=== PATIENT | male | born 1955 | race Caucasian/White ===

== ENCOUNTER → 2019-04-25 10:35 | Outpatient (BNVA) | payer MEDICARE, MEDICAID, SELFPAY | PROVIDERS: Family Provider Family Medicine; Visit Provider Nurse Practitioner | DX: F70 Mild intellectual disabilities (principal); F20.89 Other schizophrenia | CPT/HCPCS: 99213 ==

== ENCOUNTER 2019-07-13 07:43 | Inpatient (IN) | payer MEDICARE, MEDICAID, SELFPAY ==
[2019-07-13] VITALS (110 sets, daily range): BP systolic 63–148; BP diastolic 38–92; PULSE 48–86; RESP 12–25; TEMP 36.7–37.4; O2SAT 93–100; BMI 28.1
--- NOTE | 2019-07-13 07:50 | W.ED.AMS ---
HPI - Altered Mental Status General: Chief Complaint: Altered Mental Status Stated Complaint: AMS Time Seen by Provider: 07/13/19 07:50 History of Present Illness: HPI narrative: 64-year-old male who has a history of schizophrenia and mental retardation he lives in assisted living home he arrives here today via EMS with altered mental status. EMS reports they were told he had a cough over the last week but no report of a fever he is afebrile now. He is nonverbal at this time and unable to give any history assistance. His past medical history and medicine list from the assisted living home was reviewed. complaint: altered mental status Onset (ago): hour(s) Timing confirmed by: caregiver Severity: severe Consistency of symptoms: Getting Worse Context: other (History of schizophrenia and mental retardation) Treatments prior to arrival: oxygen Review of Systems General: Reports: ROS unobtainable due to mental status [facility] ED PFSH: Medical History (Updated 07/13/19 @ 13:06 by Nam Morales MD) Anxiety and depression Hyperlipidemia Hypertension Hypothyroidism Mild intellectual disabilities Other schizophrenia Surgical History (Updated 07/13/19 @ 13:06 by Nam Morales MD) History of craniotomy Social History Smoking and tobacco status: unknown if ever smoked Physical Exam HENMT: COMMON NORMALS: external ears normal, EAC's normal and oropharynx normal EXTERNAL EAR: Yes external ears normal EXTERNAL AUDITORY CANAL: EAC's normal Eye: COMMON NORMALS: no scleral icterus Neck/C-Spine: COMMON NORMALS: full ROM, no lymphadenopathy, supple and no JVD Lymph: LYMPHATIC: no lymphadenopathy noted and no lymphedema noted Resp: EFFORT & INSPECTION: Yes respiratory distress, Yes decreased respiratory effort, Yes labored, Yes uses accessory muscles and Yes audible wheezes Cardio: COMMON NORMALS: no JVD, regular rhythm and No murmurs present (Cardio) RATE: bradycardic RHYTHM: regular rhythm GI: COMMON NORMALS: Soft to palpation and No hepatosplenomegaly present AUSCULTATION: Yes normoactive bowel sounds PALPATION: Yes Soft to palpation, No Tenderness to palpation present (GI), No Guarding due to palpation present (GI) and Yes No hepatosplenomegaly present Extremity: COMMON NORMALS: normal to inspection, capillary refill normal, no clubbing, cyanosis or edema, no calf tenderness and no pedal edema Skin: COMMON NORMALS: no rashes or lesions noted GENERAL SKIN EXAM: no rashes or lesions noted Procedures Intubation Time out performed: Yes sedative: Etomidate Mg Given: 40 paralytic: Succinylcholine Mg Given: 120 Laryngoscope: Yola Assist Device Used: fiber optic device ET Tube Size: 8.5 Tube Secured Depth (cm): 22 Tube Secured Location: teeth Tube Placement Confirmation: visualized tube passing through cords, equal breath sounds bilaterally and no breath sounds over epigastrium Patient Tolerated Procedure: well Intubation Complications: none Additional Comments: Initial attempt made with the bougie patient had excessive soft tissue and the bougie was deflected and could not actually get it into position when I went with just a ET cuff with stylette intubated without difficulty on the first attempt Course Vital Signs: Vital signs: Vital Signs Temperature 98.3 F 07/16/19 04:00 Pulse Rate 100 07/16/19 08:00 Respiratory Rate 16 07/16/19 08:54 Blood Pressure 95/59 07/16/19 08:00 Pulse Oximetry 95 07/16/19 08:00 MDM - Altered Mental Status Lab Data: Labs: Lab Results 07/13/19 07/13/19 07/13/19 Range/Units 08:02 08:02 08:02 WBC 34.5 H* (4.0-10.0) 10^3/ uL RBC 4.84 (4.1-5.3) 10^6/u L Hgb 13.7 (11.7-16.6) g/dL Hct 45.2 (42.0-52.0) % MCV 93.4 (80-94) fL MCH 28.3 (28.0-34.0) pg MCHC 30.3 (30.0-36.0) g/dL RDW 12.6 (12.1-15.1) % Plt Count 207 (130-400) 10^3/c mm MPV 11.0 H (7.4-10.4) fL Neut % (Auto) 93.9 % Lymph % (Auto) 3.1 % Dade % (Auto) 2.2 % Eos % (Auto) 0.0 % Baso % (Auto) 0.3 % Neut # (Auto) 32.4 H (1.8-7.7) 10^3/u L Lymph # (Auto) 1.1 (0.8-4.8) 10^3/u L Dade # (Auto) 0.8 (0.2-0.9) 10^3/u L Eos # (Auto) 0.0 (0.0-0.8) 10^3/u L Baso # (Auto) 0.1 (0.0-0.1) 10^3/u L Nucleated RBC % (a uto) 0 % Nucleated RBCs # 0.0 /100WBC PT (10.5-13.3) SECO NDS INR (0.8-1.2) Specimen Type Sample Site ABG pH (7.35-7.45) ABG pCO2 (35-45) mmHg ABG pO2 (80.0-100.0) mmH g ABG HCO3 (22-26) mmol/L ABG O2 Saturation ABG Base Excess (-2.0-2.0) mmol/ L Adolfo Test A-a O2 Gradient (5-10) mmHg Hematocrit (42-52) % Hgb O2 Saturation (95-100) % Carboxyhemoglobin (0.4-20.1) %THgb Methemoglobin (0.4-1.5) % Total Hemoglobin (14-18) g/dL Ionized Calcium (1.1-1.4) mmol/L O2 Delivery Device FiO2 % Asbestos Shingle Inspector ID Sodium 138 (136-145) mmol/L Potassium 5.1 (3.5-5.1) mmol/L Chloride 101 (98-107) mmol/L Carbon Dioxide 20 L (22-29) mmol/L Anion Gap 22.1 H (5-19) BUN 50 H (8-23) mg/dL Creatinine 2.9 H (0.7-1.2) mg/dL GFR Calculation 22.0 L (90-130) mL/min Glucose 127 H (65-115) mg/dL Estimat Average Gl ucose Hemoglobin A1c (4.0-6.0) % Calculated Osmolal ity 286 (285-295) mOsm/k g Lactate 1.9 (0.5-2.2) mmol/L Calcium 11.1 H (8.5-10.5) mg/dL Phosphorus (2.5-4.5) mg/dL Magnesium (1.7-2.3) mg/dL Total Bilirubin 0.4 (0.15-1.2) mg/dL AST 16 (0-40) U/L ALT 11 (0-41) U/L Alkaline Phosphata se 146 H (40-130) IU/L Creatine Kinase 138 (39-308) U/L Troponin T Baselin e (0-15) ng/mL NT-Pro-B Natriuret Pep (0-125) pg/mL Total Protein 7.7 (6.6-8.7) g/dL Albumin 4.2 (3.5-5.2) g/dL Globulin 3.5 (1.3-4.6) g/dL Lipase 29 (13-60) U/L Procalcitonin (0-0.5) ng/mL TSH (0.27-4.20) uIU/ mL Nasal/Oral COVID-1 9 PCR Influenza Type A A g (Negative) Influenza Type B A g (Negative) 07/13/19 07/13/19 07/13/19 Range/Units 08:02 08:02 08:02 WBC (4.0-10.0) 10^3/ uL RBC (4.1-5.3) 10^6/u L Hgb (11.7-16.6) g/dL Hct (42.0-52.0) % MCV (80-94) fL MCH (28.0-34.0) pg MCHC (30.0-36.0) g/dL RDW (12.1-15.1) % Plt Count (130-400) 10^3/c mm MPV (7.4-10.4) fL Neut % (Auto) % Lymph % (Auto) % Dade % (Auto) % Eos % (Auto) % Baso % (Auto) % Neut # (Auto) (1.8-7.7) 10^3/u L Lymph # (Auto) (0.8-4.8) 10^3/u L Dade # (Auto) (0.2-0.9) 10^3/u L Eos # (Auto) (0.0-0.8) 10^3/u L Baso # (Auto) (0.0-0.1) 10^3/u L Nucleated RBC % (a uto) % Nucleated RBCs # /100WBC PT 16.90 H (10.5-13.3) SECO NDS INR 1.33 H (0.8-1.2) Specimen Type Sample Site ABG pH (7.35-7.45) ABG pCO2 (35-45) mmHg ABG pO2 (80.0-100.0) mmH g ABG HCO3 (22-26) mmol/L ABG O2 Saturation ABG Base Excess (-2.0-2.0) mmol/ L Adolfo Test A-a O2 Gradient (5-10) mmHg Hematocrit (42-52) % Hgb O2 Saturation (95-100) % Carboxyhemoglobin (0.4-20.1) %THgb Methemoglobin (0.4-1.5) % Total Hemoglobin (14-18) g/dL Ionized Calcium (1.1-1.4) mmol/L O2 Delivery Device FiO2 % Asbestos Shingle Inspector ID Sodium (136-145) mmol/L Potassium (3.5-5.1) mmol/L Chloride (98-107) mmol/L Carbon Dioxide (22-29) mmol/L Anion Gap (5-19) BUN (8-23) mg/dL Creatinine (0.7-1.2) mg/dL GFR Calculation (90-130) mL/min Glucose (65-115) mg/dL Estimat Average Gl ucose Hemoglobin A1c (4.0-6.0) % Calculated Osmolal ity (285-295) mOsm/k g Lactate (0.5-2.2) mmol/L Calcium (8.5-10.5) mg/dL Phosphorus (2.5-4.5) mg/dL Magnesium (1.7-2.3) mg/dL Total Bilirubin (0.15-1.2) mg/dL AST (0-40) U/L ALT (0-41) U/L Alkaline Phosphata se (40-130) IU/L Creatine Kinase (39-308) U/L Troponin T Baselin e 18 H (0-15) ng/mL NT-Pro-B Natriuret Pep (0-125) pg/mL Total Protein (6.6-8.7) g/dL Albumin (3.5-5.2) g/dL Globulin (1.3-4.6) g/dL Lipase (13-60) U/L Procalcitonin (0-0.5) ng/mL TSH 0.56 (0.27-4.20) uIU/ mL Nasal/Oral COVID-1 9 PCR Influenza Type A A g (Negative) Influenza Type B A g (Negative) 07/13/19 07/13/19 07/13/19 Range/Units 08:02 08:02 08:05 WBC (4.0-10.0) 10^3/ uL RBC (4.1-5.3) 10^6/u L Hgb (11.7-16.6) g/dL Hct (42.0-52.0) % MCV (80-94) fL MCH (28.0-34.0) pg MCHC (30.0-36.0) g/dL RDW (12.1-15.1) % Plt Count (130-400) 10^3/c mm MPV (7.4-10.4) fL Neut % (Auto) % Lymph % (Auto) % Dade % (Auto) % Eos % (Auto) % Baso % (Auto) % Neut # (Auto) (1.8-7.7) 10^3/u L Lymph # (Auto) (0.8-4.8) 10^3/u L Dade # (Auto) (0.2-0.9) 10^3/u L Eos # (Auto) (0.0-0.8) 10^3/u L Baso # (Auto) (0.0-0.1) 10^3/u L Nucleated RBC % (a uto) % Nucleated RBCs # /100WBC PT (10.5-13.3) SECO NDS INR (0.8-1.2) Specimen Type Arterial Sample Site Brachial, right ABG pH 7.30 L (7.35-7.45) ABG pCO2 41.5 (35-45) mmHg ABG pO2 75.7 L (80.0-100.0) mmH g ABG HCO3 20.5 L (22-26) mmol/L ABG O2 Saturation 95.3 ABG Base Excess -5.6 L (-2.0-2.0) mmol/ L Adolfo Test Pos A-a O2 Gradient 573.0 H (5-10) mmHg Hematocrit 41.6 L (42-52) % Hgb O2 Saturation 94.6 L (95-100) % Carboxyhemoglobin 0.7 (0.4-20.1) %THgb Methemoglobin 0.0 L (0.4-1.5) % Total Hemoglobin 13.6 L (14-18) g/dL Ionized Calcium 1.4 (1.1-1.4) mmol/L O2 Delivery Device Nrb FiO2 100.0 % Asbestos Shingle Inspector ID [id number] Sodium 140.0 (136-145) mmol/L Potassium 4.5 (3.5-5.1) mmol/L Chloride (98-107) mmol/L Carbon Dioxide (22-29) mmol/L Anion Gap (5-19) BUN (8-23) mg/dL Creatinine (0.7-1.2) mg/dL GFR Calculation (90-130) mL/min Glucose 135.0 H (65-115) mg/dL Estimat Average Gl ucose 128 Hemoglobin A1c 6.1 H (4.0-6.0) % Calculated Osmolal ity (285-295) mOsm/k g Lactate (0.5-2.2) mmol/L Calcium (8.5-10.5) mg/dL Phosphorus 4.4 (2.5-4.5) mg/dL Magnesium 2.1 (1.7-2.3) mg/dL Total Bilirubin (0.15-1.2) mg/dL AST (0-40) U/L ALT (0-41) U/L Alkaline Phosphata se (40-130) IU/L Creatine Kinase (39-308) U/L Troponin T Baselin e (0-15) ng/mL NT-Pro-B Natriuret Pep 465 H (0-125) pg/mL Total Protein (6.6-8.7) g/dL Albumin (3.5-5.2) g/dL Globulin (1.3-4.6) g/dL Lipase (13-60) U/L Procalcitonin 4.30 H (0-0.5) ng/mL TSH (0.27-4.20) uIU/ mL Nasal/Oral COVID-1 9 PCR Influenza Type A A g (Negative) Influenza Type B A g (Negative) 07/13/19 07/13/19 07/13/19 Range/Units 10:09 10:09 11:05 WBC (4.0-10.0) 10^3/ uL RBC (4.1-5.3) 10^6/u L Hgb (11.7-16.6) g/dL Hct (42.0-52.0) % MCV (80-94) fL MCH (28.0-34.0) pg MCHC (30.0-36.0) g/dL RDW (12.1-15.1) % Plt Count (130-400) 10^3/c mm MPV (7.4-10.4) fL Neut % (Auto) % Lymph % (Auto) % Dade % (Auto) % Eos % (Auto) % Baso % (Auto) % Neut # (Auto) (1.8-7.7) 10^3/u L Lymph # (Auto) (0.8-4.8) 10^3/u L Dade # (Auto) (0.2-0.9) 10^3/u L Eos # (Auto) (0.0-0.8) 10^3/u L Baso # (Auto) (0.0-0.1) 10^3/u L Nucleated RBC % (a uto) % Nucleated RBCs # /100WBC PT (10.5-13.3) SECO NDS INR (0.8-1.2) Specimen Type Arterial Sample Site Radial, right ABG pH 7.25 L (7.35-7.45) ABG pCO2 44.5 (35-45) mmHg ABG pO2 121.0 H (80.0-100.0) mmH g ABG HCO3 19.5 L (22-26) mmol/L ABG O2 Saturation 98.6 ABG Base Excess -7.6 L (-2.0-2.0) mmol/ L Adolfo Test Pos A-a O2 Gradient 106.2 H (5-10) mmHg Hematocrit 37.1 L (42-52) % Hgb O2 Saturation 97.5 (95-100) % Carboxyhemoglobin 0.4 (0.4-20.1) %THgb Methemoglobin 0.7 (0.4-1.5) % Total Hemoglobin 12.1 L (14-18) g/dL Ionized Calcium 1.3 (1.1-1.4) mmol/L O2 Delivery Device Bipap FiO2 40.0 % Asbestos Shingle Inspector ID [id number] Sodium 142.0 (136-145) mmol/L Potassium 4.4 (3.5-5.1) mmol/L Chloride (98-107) mmol/L Carbon Dioxide (22-29) mmol/L Anion Gap (5-19) BUN (8-23) mg/dL Creatinine (0.7-1.2) mg/dL GFR Calculation (90-130) mL/min Glucose 128.0 H (65-115) mg/dL Estimat Average Gl ucose Hemoglobin A1c (4.0-6.0) % Calculated Osmolal ity (285-295) mOsm/k g Lactate (0.5-2.2) mmol/L Calcium (8.5-10.5) mg/dL Phosphorus (2.5-4.5) mg/dL Magnesium (1.7-2.3) mg/dL Total Bilirubin (0.15-1.2) mg/dL AST (0-40) U/L ALT (0-41) U/L Alkaline Phosphata se (40-130) IU/L Creatine Kinase (39-308) U/L Troponin T Baselin e (0-15) ng/mL NT-Pro-B Natriuret Pep (0-125) pg/mL Total Protein (6.6-8.7) g/dL Albumin (3.5-5.2) g/dL Globulin (1.3-4.6) g/dL Lipase (13-60) U/L Procalcitonin (0-0.5) ng/mL TSH (0.27-4.20) uIU/ mL Nasal/Oral COVID-1 9 PCR Not detected Influenza Type A A g Negative (Negative) Influenza Type B A g Negative (Negative) Discharge Plan Discharge Patient Disposition: Admitted As Inpatient Admit Provider: Nam Morales Clinical Impression: Community acquired pneumonia, Mild intellectual disabilities, Other schizophrenia, Respiratory failure Condition: Stable Referrals: Eliane Bruce PA [Primary Care Provider] - Discharge Date/Time: 07/13/19 14:13 Coding Level of Care Code ED Retail Shift Leader for g Fwd Exam Comprehensive
--- NOTE | 2019-07-13 07:52 | CT_ITS ---
WS: [id number] CT HEAD NONCONTRAST HISTORY: AMS TECHNIQUE: Contiguous axial imaging performed through the brain in 2.5 mm imaging. Bone and soft tiss ue windows. Sagittal and coronal reformats reviewed. All CT scans at [facility] use at ast one of these dose optimization techniques: automated exposure control; mA and/or kV adjustment pe r patient size (includes targeted exams where dose is matched to clinical indication); or iterative r econstruction. DLP: 631.47 mGy.cm COMPARISON: 10/12/2015 No acute intracranial hemorrhage, midline shift or mass effect. Mild atrophy and mild chronic microvascular ischemic disease. There is no sulcal effacement. Similar appearance of the brain as compared to the prior studies. Ventricles: Normal size with no hydrocephalus. No inferior displacement of the cerebellar tonsils. Paranasal sinuses: Mucous retention cyst in the floor the LEFT maxillary sinus. No air-fluid levels. Mastoid air cells: Well pneumatized. Calvarium and scalp: No fractures. Hyperostosis frontalis interna. [place] hole in the posterior LEFT fr ontal region is stable. Significant deviation of the nasal bones to the LEFT is chronic. CT/CT head wo con* [id number] IMPRESSION: 1. Stable noncontrast head CT since 10/12/2015. 2. No acute intracranial process.
--- NOTE | 2019-07-13 07:52 | XR_ITS ---
WS: [id number] PORTABLE CHEST HISTORY: dyspnea/cough COMPARISON: 01/06/2017 Hyperinflated lungs. Coarsened diffuse interstitial thickening throughout a large portion of the RIGH T lung with sparing of the apex. LEFT lung is clear. Small RIGHT pleural effusion. Cardiac size: Normal. Mediastinum/Aorta: Normal mediastinum. No osseous abnormality seen. XR/XR chest 1V portable [id number] IMPRESSION: RIGHT lung pneumonia.
--- NOTE | 2019-07-13 07:54 | ECG_ITS ---
Measurements Intervals [place] Rate: 84 P: 27 WV: 144 QRS: -25 QRSD: 96 T: 51 QT: 393 QTc: 465 SINUS RHYTHM BORDERLINE LEFT AXIS DEVIATION [QRS AXIS < -20] NONSPECIFIC T-WAVE ABNORMALITY INTERPRETATION BASED ON A DEFAULT AGE OF 40 YEARS Compared to ECG 01/06/2017 17:37:34 T-wave abnormality now present Sinus bradycardia no longer present Electronically Signed On 07-13-2019 20:30:35 CDT by Nigel Levy M.D. [email or web address]
[2019-07-13 08:14] LABS: ABG PCO2 41.5 mmHg (35-45); Arterial Blood Gas Hematocrit 41.6 % (42-52); Base Excess ABG -5.6 mmol/L (-2.0-2.0); Blood Gas Allen Test Pos; Blood Gas Sample Type Arterial; Carboxyhemoglobin 0.7 %THgb (0.4-20.1); HCO3 ABG 20.5 mmol/L (22-26); HGB O2 Sat 94.6 % (95-100); Ionized Calcium Level - ABG 1.4 mmol/L (1.1-1.4); Oxygen Saturation ABG 95.3; PO2 ABG 75.7 mmHg (80.0-100.0); Potassium Level - ABG 4.5 mmol/L (3.5-5.0); Total Hemoglobin 13.6 g/dL (14-18)
[2019-07-13 08:15] LABS: Blood Gas Sample Site Brachial, right; Oxygen Device NRB
[2019-07-13] MEDS: sodium chloride 0.9% 1,000 ML 999 ML IV (08:15)
[2019-07-13 08:25] LABS: Basophils # 0.1 10^3/uL (0.0-0.1); Basophils % 0.3 %; Hematocrit 45.2 % (42.0-52.0); Hemoglobin 13.7 g/dL (11.7-16.6); Lymphocytes # 1.1 10^3/uL (0.8-4.8); Lymphocytes % 3.1 %; Mean Corpuscular HGB Conc 30.3 g/dL (30.0-36.0); Mean Corpuscular Hemoglobin 28.3 pg (28.0-34.0); Mean Corpuscular Volume 93.4 fL (80-94); Monocytes # 0.8 10^3/uL (0.2-0.9); Monocytes % 2.2 %; Neutrophils # 32.4 10^3/uL (1.8-7.7); Neutrophils % 93.9 %; Nucleated Red Blood Cells % 0 %; Platelet Count 207 10^3/cmm (130-400); Red Blood Count 4.84 10^6/uL (4.1-5.3); Red Cell Distribution Width 12.6 % (12.1-15.1)
[2019-07-13 08:30] LABS: Lactate (Lactic Acid level) 1.9 mmol/L (0.5-2.2)
[2019-07-13 08:32] LABS: Alanine Aminotransferase 11 U/L (0-41); Albumin Level 4.2 g/dL (3.5-5.2); Alkaline Phosphatase 146 IU/L (40-130); Anion Gap 22.1 (5-19); Aspartate Amino Transferase 16 U/L (0-40); Blood Urea Nitrogen 50 mg/dL (8-23); Calcium 11.1 mg/dL (8.5-10.5); Carbon Dioxide 20 mmol/L (22-29); Chloride 101 mmol/L (98-107); Creatine Phosphokinase 138 U/L (39-308); Globulin 3.5 g/dL (1.3-4.6); Glucose 127 mg/dL (65-115); Lipase 29 U/L (13-60); Osmolality Calculated 286 mOsm/kg (285-295); Potassium 5.1 mmol/L (3.5-5.1); Sodium 138 mmol/L (136-145); Total Bilirubin 0.4 mg/dL (0.15-1.2); Total Protein 7.7 g/dL (6.6-8.7); Troponin(5th) Baseline 18 ng/mL (0-15)
[2019-07-13 08:37] LABS: White Blood Count 34.5 10^3/uL (4.0-10.0)
[2019-07-13] MEDS: levofloxacin-dextrose 5 % 750 MG/150 ML PREMIX 75 MG IV (09:07)
[2019-07-13 10:48] LABS: Influenza A by IFA Negative (Negative); Influenza B by IFA Negative (Negative)
[2019-07-13 11:18] LABS: ABG PCO2 44.5 mmHg (35-45); ABG PH Result 7.25 (7.35-7.45); Alveolar-Arterial Oxygen Gradi 106.2 mmHg (5-10); Arterial Blood Gas Hematocrit 37.1 % (42-52); Base Excess ABG -7.6 mmol/L (-2.0-2.0); Blood Gas Allen Test Pos; Blood Gas Operator Identificat amh; Blood Gas Sample Site Radial, right; Blood Gas Sample Type Arterial; Carboxyhemoglobin 0.4 %THgb (0.4-20.1); HCO3 ABG 19.5 mmol/L (22-26); HGB O2 Sat 97.5 % (95-100); Ionized Calcium Level - ABG 1.3 mmol/L (1.1-1.4); Methemoglobin 0.7 % (0.4-1.5); Oxygen Device BIPAP; Oxygen Saturation ABG 98.6; Potassium Level - ABG 4.4 mmol/L (3.5-5.0); Total Hemoglobin 12.1 g/dL (14-18)
[2019-07-13] MEDS: succinylcholine 20 mg/mL SDV 10mL 120 MG IVP (11:50)
[2019-07-13] MEDS: sodium chloride 0.9% (100 ml) 100 ML (12:25)
[2019-07-13] MEDS: propofol 1,000 MG/100 ML INJ 1 MG IV (12:38)
[2019-07-13 12:41] LABS: Troponin 5 2HR 12.79 ng/mL (0-15)
--- NOTE | 2019-07-13 12:53 | PC.NURSE ---
Pt intubated @ 5787, 22 @ the lip.
--- NOTE | 2019-07-13 12:56 | PM.HP ---
Providers/Chief Complaint Admitting Physician: Nam Morales MD Primary Care Provider: Eliane Bruce Chief Complaint: AMS History of Present Illness Deangelo Angel is a 64 year old male with a past medical history of hypertension, hypothyroidism, anxiety and depression, schizophrenia, intellectual disability, who presents to [facility] due to altered mental status. Currently patient is intubated, sedated and most of the history was obtained by ER physician, ER staff, and patient's next of kin Dianne Mistry. Patient has intellectual disabilities, he gets 24-nursing care, he lives in his own home, he gets 24-hour long-term care, a FLOOR REPRESENTATIVE is usually there daily, and a nurse checks up on him monthly. Patient is awarded guardianship of the state, is a full code. At baseline patient is alert and oriented x2, does have behavioral problems, does have agitation, does have anxiety, does see things that are not there, to speak of things that are not there, requires help with activities daily living, cannot carry on conversations, but can appear confused at times but that is baseline for him. According to Dianne, for the last few days patient has been complaining of a cough, sinus symptoms, his lungs sounded clear a few days ago. Will for the last 24 hours his cough, sinus symptoms worsen, had intermittent shortness of breath, but lungs sounded clear. No fevers, blood pressure was within normal limits. But over the next few hours patient became much more confused, much more combative, much more agitated, much less responsive which is not normal for him. In the emergency room, patient has a right right-sided pneumonia, right upper, middle, lower lobe, white blood cell count 35,000, was found to be hypoxic, did not tolerate BiPAP well, was intubated by ER physician. His influenza testing was negative. His Covid 19 results are ordered. Hospitalist team was called for admission to ICU. Review of Systems General: Reports: ROS unobtainable due to endotracheal tube and ROS unobtainable due to mental status Medications/Allergies Home Medications Medication Instructions Recorded Confirmed Last Taken Type ascorbic acid (vitamin C) 1,000 mg 1 gm PO BID tab 04/25/19 07/13/19 07/12/19 History tablet cholecalciferol (vitamin D3) 125 125 mcg PO DAILY 04/25/19 07/13/19 07/12/19 History mcg (5,000 unit) tablet gabapentin 400 mg capsule 400 mg PO TID 04/25/19 07/13/19 07/12/19 History hydroxyzine HCl 50 mg tablet 50 mg PO TID #90 tab 04/25/19 07/13/19 07/12/19 Rx levothyroxine 175 mcg tablet 175 mcg PO DAILY 04/25/19 07/13/19 07/12/19 History lithium carbonate 300 mg tablet 300 mg PO BID #60 tab 04/25/19 07/13/19 07/12/19 Rx methenamine hippurate 1 gram tablet 1 gm PO BID 04/25/19 07/13/19 07/12/19 History metoprolol succinate 50 mg 50 mg PO DAILY 04/25/19 07/13/19 07/12/19 History tablet,extended release 24 hr olanzapine 20 mg tablet 20 mg PO BID #60 tab 04/25/19 07/13/19 07/12/19 Rx quetiapine 100 mg tablet 100 mg PO BID #60 tab 04/25/19 07/13/19 07/12/19 Rx sennosides 8.6 mg-docusate sodium 2 tab-cap PO BID tab 04/25/19 07/13/19 07/12/19 History 50 mg tablet sertraline 100 mg tablet 200 mg PO DAILY #60 tab 04/25/19 07/13/19 07/12/19 Rx simvastatin 20 mg tablet 20 mg PO DAILY 04/25/19 07/13/19 07/12/19 History tamsulosin 0.4 mg capsule 0.8 mg PO DAILY cap 04/25/19 07/13/19 07/12/19 History acetaminophen 650 mg PO Q4H PRN 07/13/19 07/13/19 Unknown History loperamide 2 mg PO Q4H PRN 07/13/19 07/13/19 Unknown History magnesium citrate 150 ml PO DAILY PRN 07/13/19 07/13/19 Unknown History Allergies Allergy/AdvReac Type Severity Reaction Status Date / Time Benzodiazepines Allergy Unknown Verified 07/13/19 08:05 lorazepam Allergy Unknown Verified 04/25/19 10:41 valproic acid Allergy Unknown Verified 04/25/19 10:41 PFSH Acute PFSH: Medical History (Updated 07/13/19 @ 13:06 by Nam Morales MD) Anxiety and depression Hyperlipidemia Hypertension Hypothyroidism Mild intellectual disabilities Other schizophrenia Surgical History (Updated 07/13/19 @ 13:06 by Nam Morales MD) History of craniotomy Social History Smoking and tobacco status: unknown if ever smoked Vitals/I&O/Wt Last Vital Signs Temp 98.0 F 07/13/19 07:44 Pulse 67 07/13/19 10:40 Resp 16 07/13/19 12:12 BP 120/66 07/13/19 10:18 Pulse Ox 97 07/13/19 10:40 07/12/19 07/13/19 07/13/19 22:59 06:59 14:59 Intake Total 3585.525 / 3585.525 Balance 3585.525 / 3585.525 Weight last 48 hrs Weight 83.915 kg Physical Exam Narrative: EXAM NARRATIVE: Intubated, sedated Const: COMMON NORMALS: no acute distress OTHER: Intubated, sedated HENMT: COMMON NORMALS: normocephalic HEAD & SCALP: normocephalic Eye: COMMON NORMALS: Equal, round and reactive pupils present and EOMs intact bilaterally GENERAL EYE: appearance normal, both eyes and all related structures PUPIL: Yes Equal, round and reactive pupils present DIRECT OPHTHALMOSCOPY: Yes no papilledema Neck/C-Spine: COMMON NORMALS: full ROM, no lymphadenopathy, no JVD and Thyroid normal THYROID: Thyroid normal Lymph: LYMPHATIC: no lymphadenopathy noted Chest: COMMONS NORMALS: normal inspection of the chest Resp: COMMON NORMALS: normal respiratory effort, No retractions and No use of accessory muscles AUSCULTATION: diminished lung sounds on the right in the lower lung brooks, in the upper lung brooks and throughout Cardio: COMMON NORMALS: no JVD, regular rate, regular rhythm, S1 normal heart sound present, S2 normal heart sound present, No gallops present (Cardio), No clicks present (Cardio) and No murmurs present (Cardio) RATE: regular rate RHYTHM: regular rhythm HEART SOUNDS: S1 normal heart sound present and S2 normal heart sound present GI: COMMON NORMALS: Normal to inspection, nondistended, normoactive bowel sounds present, Soft to palpation, non-tender and No hepatosplenomegaly present PALPATION: Yes Soft to palpation and Yes No hepatosplenomegaly present Extremity: COMMON NORMALS: normal to inspection, full ROM and no pedal edema Neuro: OTHER: Intubated, sedated, cannot follow neurologic exam Psych: OTHER: Intubated, sedated Sepsis: Is patient septic: Yes Focused sepsis exam performed: Yes Date exam was performed: 07/13/19 Time exam was performed: 13:08 Data : 07/13/19 08:02 07/13/19 08:02 Micro: Microbiology 07/13/19 08:00 Blood Culture - Preliminary Blood SPECIMEN COLLECTED 07/13/19 08:02 Blood Culture - Preliminary Blood SPECIMEN COLLECTED A&P Assessment and plan (1) Acute respiratory failure with hypoxia: -chest x-ray shows pneumonia involving entire right lung -White blood cell count 34,000, neutrophils 32.4, hypotensive on exam, tachycardic, tachypnea -pH 7.25, PO2 121, PCO2 44.5 -Baseline troponin I 81 -With septic encephalopathy, septic shock Plan: -Patient requires ICU admission -Continue mechanical ventilation, PEEP of 5, FiO2 of 35% -Fentanyl and propofol for sedation -Chavez catheter in place, monitor urine output -Lovenox for DVT prophylaxis, Protonix for GI prophylaxis -Broad-spectrum antibiotics vancomycin and Zosyn -Urine cultures, blood cultures, sputum cultures, urine bacterial antigens, Covid 19 testing -Currently on Levophed, will place central line once in ICU -Received sepsis bolus, not fluid responsive, will have nurses use NICOM -Monitor hemodynamics closely -OG tube inserted, start tube feeds -Monitor troponins, serial EKGs, telemetry monitoring -patient has a component of aspiration, according to nursing staff he frequently chokes on his meals, will require a barium swallow once successfully extubated -Patient is a full code -Patient is awarded guardianship of the state phone number for Dianne Bruce, [phone] Status: Acute (2) Septic encephalopathy: Status: Acute (3) Pneumonia involving right lung: Status: Acute (4) Septic shock: Status: Acute (5) Hyperlipidemia: Status: Acute (6) Anxiety and depression: Status: Acute (7) Hypertension: Status: Acute (8) Hypothyroidism: Status: Acute (9) Other schizophrenia: Status: Acute (10) Mild intellectual disabilities: Status: Acute Attestations Medical Necessity Statement*: She requires hospitalization, inpatient, greater than 2 midnights, versus acute respiratory failure, septic shock, septic encephalopathy Coding Level of Care Code Acute Lockstitch Topstitcher for Chg Fwd Diagnoses Acute respiratory failure with hypoxia J96.01 Septic encephalopathy G93.41 Pneumonia involving right lung J18.9 Septic shock A41.9; R65.21 Hyperlipidemia E78.5 Anxiety and depression F41.9; F32.9 Hypertension I10 Hypothyroidism E03.9 Other schizophrenia F20.89 Mild intellectual disabilities F70 Sepsis Event Note Evaluation Current stage of sepsis: severe sepsis Initial hypotension due to sepsis/infection: SBP < 90 mmHg Possible source: pulmonary Focused Exam Vital Signs Temp Pulse Pulse Resp BP BP Pulse Ox 07/13/19 13:02 69 15 139/79 98 07/13/19 12:12 16 07/13/19 10:40 67 97 07/13/19 10:18 75 16 120/66 100 07/13/19 09:25 75 98 07/13/19 09:22 74 19 H 94/61 97 07/13/19 08:06 84 18 96/57 07/13/19 07:44 98.0 F 85 25 H 78/55 93 Respiratory exam: Present patient mechanically ventilated and decreased breath sounds (Decreased breath sound entire right lung field) Cardiovascular exam: Present RRR, S1 and S2 Capillary refill: > 3 Seconds Peripheral pulse strength: 2+ Slightly Diminished Peripheral pulse location: Radial Skin exam: pale Date exam was performed: 07/13/19 Time exam was performed: 13:08 Problem List (1) Other schizophrenia: Status: Acute (2) Mild intellectual disabilities: Status: Acute
[2019-07-13 13:03] LABS: Troponin 5 2HR Delta -5.21 ABS# (0-10)
[2019-07-13 13:14] LABS: Add Urine Culture? No; Add Urine Microscopic? YES; Bacteria Urine 1+; Bilirubin Urine Neg (NEGATIVE); Blood Urine Neg (Negative); Glucose Urine UA Norm (Normal); Ketones Urine 1+ (Negative); Leukocyte Esterase Urine Negative (Negative); Mucus Urine 1+; Nitrate Urine Negative (Negative); Protein Urine Neg (Negative); Specific Gravity, Urine 1.015 (1.005-1.030); Squamous Epithelial Cell Urine 0-4 (0-5); Transitional Epi Cells Urine 0-4 /hpf; Urine Appearance SL Hazy (CLEAR); Urine Color Yellow (Yellow); Urobilinogen Urine Norm (Negative); pH Urine 5 (5-7)
[2019-07-13 13:24] LABS: INR 1.33 (0.8-1.2)
[2019-07-13 13:32] LABS: Estmated Average Glucose 128; Hemoglobin A1C 6.1 % (4.0-6.0)
[2019-07-13 13:44] LABS: Thyroid Stimulating Hormone 0.56 uIU/mL (0.27-4.20)
[2019-07-13 13:45] LABS: NT Pro B Type Natriuretic Pept 465 pg/mL (0-125)
[2019-07-13 14:00] LABS: Magnesium 2.1 mg/dL (1.7-2.3); Phosphorus 4.4 mg/dL (2.5-4.5)
--- NOTE | 2019-07-13 16:05 | XR_ITS ---
WS: [id number] PORTABLE CHEST HISTORY: central line placement verification COMPARISON: 07/13/2019 Interval placement of a RIGHT IJ line. RIGHT IJ line tip is directed superiorly and not towards the h eart. The lumen of the catheter is coiled back on itself. Endotracheal and nasogastric tubes are in g ood position. Continued mild haziness and increased opacification over the RIGHT lung. No pleural effusion or pneum othorax. Cardiac size: Mildly enlarged cardiac silhouette. Mediastinum/Aorta: Mild atherosclerosis aorta. No osseous abnormality seen. XR/XR chest 1V portable [id number] IMPRESSION: 1. RIGHT IJ line needs to be readjusted as the tip is directed superiorly and not towards the heart is expected. 2. Satisfactory placement of the endotracheal tube and the nasogastric tube.
[2019-07-13 16:47] LABS: Lactic Sepsis W/Reflex 0.9 mmol/L (0.5-2.2)
[2019-07-13 16:48] LABS: Troponin 5 6HR 12.24 ng/mL (0-15)
[2019-07-13] MEDS: enoxaparin 30 mg/0.3 mL Syringe SUBCUT (16:55)
[2019-07-13] MEDS: gabapentin 400 mg Capsule PO ×2 (16:55→20:51)
[2019-07-13] MEDS: pantoprazole 40 mg SDV IVP (16:55)
[2019-07-13] MEDS: OLANZapine 10 mg TABLET 20 MG PO (16:56)
[2019-07-13] MEDS: lithium carbonate 300 mg Capsule PO (16:56)
[2019-07-13] MEDS: quetiapine 100 mg Tablet PO (16:57)
[2019-07-13 17:05] LABS: Troponin 5 6HR Delta -5.76 ng/L (0-12)
--- NOTE | 2019-07-13 17:05 | PM.MISC ---
Miscellaneous Note Note: Central line placement procedure note: Dr. Holman helping with a central line placement Consent was obtained and is in the chart Patient is in the COVID unit Using ultrasound, the right internal jugular vein was identified, nonpulsatile, collapsible, the artery was identified adjacent to it Area was appropriately cleaned with ChloraPrep Then appropriate sterile procedure was used, gown, gloves, and n95 mask Again under ultrasonography, the right internal jugular vein was identified, nonpulsatile, collapsible, using the central line needle, under ultrasonography, the skin was broken, needle was advanced, until into in the internal jugular vein, there was a flash of dark red blood noted, guidewire was advanced over needle, the needle was removed, then plastic central line dilator was advanced to the skin, using a blade the skin was broken, to advance dilator, dilator was advanced through the skin, pulled back, then the central line was guided over the guidewire, through the skin up to level 16, guidewire was pulled through, central line was sutured into place at 2 spots over the anterior chest, procedure was tolerated well, no significant bleeding, no significant hematoma, area was cleaned with alcohol, plastic cover was placed over central line spot, Chest x-ray shows no pneumothorax, however central line is coiled, spraying g superiorly, not directed towards the heart, I spoke to Dr. Holman, who said she is to keep it in, has good flow through it
[2019-07-13 18:04] LABS: Glucose Point of Care 122 mg/dL (70-110)
[2019-07-13] MEDS: piperacillin-tazobactam 3.375 GM in sodium chloride 0.9% (plus) 50 ML IV (18:55)
[2019-07-13] MEDS: propofol 1,000 MG/100 ML INJ 2.5 MG IV (18:56)
[2019-07-13 20:24] LABS: ABG PCO2 28.9 mmHg (35-45); ABG PH Result 7.41 (7.35-7.45); Arterial Blood Gas Hematocrit 35.1 % (42-52); Base Excess ABG -5.3 mmol/L (-2.0-2.0); Blood Gas Sample Site Brachial, right; Blood Gas Sample Type Arterial; Blood Gas Tidal Volume 0.5; HCO3 ABG 18.3 mmol/L (22-26); Oxygen Device VENT
--- NOTE | 2019-07-13 22:44 | PC.NURSE ---
Per shift report that central line is coiled. Physician aware of xray results. per physician to use central line. 2200 pump alarming stating that downstream occlusion. nurse checked central line. distal lumen flushing with resistance and minimal blood return. medical lumen flushing with no resistance and good blood return. proximal lumen not flushing and no blood return. charge nurse notified. nurse started a new 22G in the left hand. central line flushed and clamped off. levophed running in left 22 hand IV. fent. and propofol running in left 22 wrist IV. patient having runs of bradycardia. heart rate as low as 46bpm. heart rate slime for approx. 30min. current vital signs HR: 60 BP: 95/52 O2: 100% RR: 20
[2019-07-13 22:45] LABS: Glucose Point of Care 217 mg/dL (70-110)
[2019-07-14] VITALS (135 sets, daily range): BP systolic 73–122; BP diastolic 46–70; PULSE 56–102; RESP 12–25; TEMP 36.3–37.2; O2SAT 94–100
[2019-07-14] MEDS: ipratropium-albuterol 3 mL Neb INHALATION ×7 (00:08→23:47)
[2019-07-14] MEDS: propofol 1,000 MG/100 ML INJ 5 MG IV (02:43)
[2019-07-14] MEDS: piperacillin-tazobactam 3.375 GM in sodium chloride 0.9% (plus) 50 ML IV ×3 (03:31→20:12)
[2019-07-14 04:08] LABS: Basophils # 0.1 10^3/uL (0.0-0.1); Basophils % 0.3 %; Eosinophils # 0.7 10^3/uL (0.0-0.8); Eosinophils % 3.7 %; Hematocrit 34.9 % (42.0-52.0); Hemoglobin 10.9 g/dL (11.7-16.6); Lymphocytes # 1.4 10^3/uL (0.8-4.8); Lymphocytes % 7.3 %; Mean Corpuscular HGB Conc 31.2 g/dL (30.0-36.0); Mean Corpuscular Hemoglobin 28.2 pg (28.0-34.0); Mean Corpuscular Volume 90.4 fL (80-94); Mean Platelet Volume 10.9 fL (7.4-10.4); Monocytes # 0.6 10^3/uL (0.2-0.9); Monocytes % 3.1 %; Neutrophils # 15.7 10^3/uL (1.8-7.7); Neutrophils % 85.2 %; Nucleated Red Blood Cells % 0 %; Platelet Count 158 10^3/cmm (130-400); Red Blood Count 3.86 10^6/uL (4.1-5.3); Red Cell Distribution Width 12.6 % (12.1-15.1); White Blood Count 18.5 10^3/uL (4.0-10.0)
[2019-07-14 04:21] LABS: Alanine Aminotransferase 8 U/L (0-41); Albumin Level 2.8 g/dL (3.5-5.2); Alkaline Phosphatase 129 IU/L (40-130); Anion Gap 13.6 (5-19); Aspartate Amino Transferase 13 U/L (0-40); Blood Urea Nitrogen 33 mg/dL (8-23); Carbon Dioxide 20 mmol/L (22-29); Chloride 111 mmol/L (98-107); Globulin 3.5 g/dL (1.3-4.6); Glomerular Filtration Rate 47.1 mL/min (90-130); Glucose 170 mg/dL (65-115); Osmolality Calculated 293 mOsm/kg (285-295); Phosphorus 1.2 mg/dL (2.5-4.5); Potassium 3.6 mmol/L (3.5-5.1); Sodium 141 mmol/L (136-145); Total Bilirubin 0.4 mg/dL (0.15-1.2); Total Protein 6.3 g/dL (6.6-8.7)
[2019-07-14 04:46] LABS: ABG PCO2 29.5 mmHg (35-45); ABG PH Result 7.46 (7.35-7.45); Arterial Blood Gas Hematocrit 35.6 % (42-52); Base Excess ABG -2.3 mmol/L (-2.0-2.0); Blood Gas Sample Site Brachial, right; Blood Gas Sample Type Arterial; Blood Gas Tidal Volume 0.5; HCO3 ABG 20.7 mmol/L (22-26); Oxygen Device VENT; PO2 ABG 82.3 mmHg (80.0-100.0)
[2019-07-14 05:10] LABS: Procalcitonin 2.86 ng/mL (0-0.5)
[2019-07-14 05:47] LABS: Glucose Point of Care 160 mg/dL (70-110)
--- NOTE | 2019-07-14 07:00 | XR_ITS ---
WS: [id number] PORTABLE CHEST HISTORY: sob COMPARISON: 07/13/2019 Nasogastric tube and endotracheal tube in good position. Abnormal positioning of the RIGHT IJ line is unchanged. Diffuse haziness over the RIGHT lung. Small LEFT pleural effusion and linear atelectasis at the LEFT base. Cardiac size: Mildly enlarged cardiac silhouette. Mediastinum/Aorta: Mild atherosclerosis aorta. No osseous abnormality seen. XR/XR chest 1V portable [id number] IMPRESSION: 1. Endotracheal nasogastric tubes in good position. 2. Abnormal positioning of the RIGHT central line is unchanged since 07/13/2019 . 3. Diffuse haziness over the RIGHT lung is probably pneumonitis.
[2019-07-14] MEDS: propofol 1,000 MG/100 ML INJ 10.1 MG IV (08:02)
[2019-07-14] MEDS: lithium carbonate 300 mg Capsule PO ×2 (09:40→17:20)
[2019-07-14] MEDS: midodrine 5 mg TABLET 10 MG PO ×3 (09:40→22:00)
[2019-07-14] MEDS: quetiapine 100 mg Tablet PO ×2 (09:40→17:19)
[2019-07-14] MEDS: OLANZapine 10 mg TABLET 20 MG PO ×2 (09:40→17:19)
--- NOTE | 2019-07-14 09:45 | PC.NUTR ---
NUTR TF RECOMMENDATIONS: Jevity with goal rate of 60 ml/hr providing 1747 kcal (99%), 79 g PRO (94%), and 1162 ml fluid (66%)(%NEEDS). Suggest starting TF at 30 ml/hr and increase by 10 ml Q6H as tolerated until goal rates is met. Suggest H2O flushes of 70 ml Q4H to approach fluid needs or per physician.
--- NOTE | 2019-07-14 10:15 | PC.NURSE ---
SPOKE VERBALLY WITH DR SIEGEL ABOUT PATIENT NEEDING AN OG TUBE. I ADVISED HIM THAT CUSTODIAL WORKER ATTEMPTED MULTIPLE TIMES TO PLACE ONE WITH NO SUCCESS. HE STATED THAT WE SHOULD ATTEMPT IT ONE MORE TIME BEFORE MED TIME. I ATTEMPTED ANOTHER TIME AND WAS UNSUCCESSFUL ALSO. I WILL PLACE A CALL TO THE PHYSICIAN TO SEE HOW WE SHOULD PROCEED AT THIS TIME.
[2019-07-14] MEDS: levothyroxine 150 mcg Tablet PO (10:55)
[2019-07-14 12:03] LABS: Coronavirus Lab Test PTC NOT DETECTED
--- NOTE | 2019-07-14 12:16 | P.PN_ITS ---
Subjective Subjective: Interval history: This morning patient is ventilated, sedated, remains on 8 of Levophed, has good urine output, yesterday central line placement by me and Dr. Holman, central line appears kinked, there was poor flow, patient's Cobin 19 testing was negative Vitals/I&O/Wt Last Vital Signs Temp 97.3 F L 07/14/19 08:00 Pulse 69 07/14/19 11:45 Resp 14 07/14/19 11:41 BP 101/55 07/14/19 09:00 Pulse Ox 97 07/14/19 11:41 07/13/19 07/14/19 07/14/19 22:59 06:59 14:59 Intake Total 535.333 / 4120.858 225.167 / 4346.025 291.183 / 291.183 Output Total 750 / 750 650 / 1400 250 / 250 Balance -214.667 / 3370.858 -424.833 / 2946.025 41.183 / 41.183 Weight last 48 hrs Weight 83.915 kg Physical Exam Narrative: EXAM NARRATIVE: Intubated, sedated Const: COMMON NORMALS: no acute distress OTHER: Intubated, sedated HENMT: COMMON NORMALS: normocephalic HEAD & SCALP: normocephalic Neck/C-Spine: COMMON NORMALS: no JVD Lymph: LYMPHATIC: no lymphadenopathy noted Chest: COMMONS NORMALS: normal inspection of the chest Resp: COMMON NORMALS: normal respiratory effort, No retractions and No use of accessory muscles AUSCULTATION: diminished lung sounds on the right in the lower lung brooks, in the upper lung brooks and throughout Cardio: COMMON NORMALS: no JVD, regular rate, regular rhythm, S1 normal heart sound present, S2 normal heart sound present, No gallops present (Cardio), No clicks present (Cardio) and No murmurs present (Cardio) RATE: regular rate RHYTHM: regular rhythm HEART SOUNDS: S1 normal heart sound present and S2 normal heart sound present GI: COMMON NORMALS: Normal to inspection, nondistended, normoactive bowel sounds present, Soft to palpation, non-tender and No hepatosplenomegaly present PALPATION: Yes Soft to palpation and Yes No hepatosplenomegaly present Extremity: COMMON NORMALS: normal to inspection, full ROM and no pedal edema Neuro: OTHER: Intubated, sedated, cannot follow neurologic exam Psych: OTHER: Intubated, sedated Urinary Catheter Management^: Chavez: Cath Placed During This Visit: yes Reason for Continuing Indwelling Catheter: Accurate Measurement of Urinary Output in Critically Ill Patients Urinary Catheter Date of Insertion: 07/13/19 Urinary Catheter Time of Insertion: 12:01 Data : 07/14/19 03:24 07/14/19 03:24 Micro: Microbiology 07/13/19 11:55 Sputum Culture - Preliminary Sputum - Endotracheal Tube Aspirate 07/13/19 08:00 Blood Culture - Preliminary Blood NEGATIVE TO DATE 07/13/19 08:02 Blood Culture - Preliminary Blood NEGATIVE TO DATE A&P Assessment and plan (1) Acute respiratory failure with hypoxia: -chest x-ray shows pneumonia pneumonia involving right lung -White blood cell count decreased to 18,000 -pH 7.41, PCO2 29.5, bicarb 20.7 -With septic encephalopathy, septic shock Plan: -Patient requires ICU admission -Continue mechanical ventilation, PEEP of 5, FiO2 of 35% -Fentanyl and propofol for sedation -Chavez catheter in place, monitor urine output -Lovenox for DVT prophylaxis, Protonix for GI prophylaxis -Broad-spectrum antibiotics vancomycin and Zosyn -Urine cultures, blood cultures, sputum cultures, urine bacterial antigens, Covid 19 testing negative -Currently on Levophed, will have to remove central line, place another 1 on the left side, hopefully in the afternoon -Received sepsis bolus, not fluid responsive, will have nurses use NICOM -Monitor hemodynamics closely -OG tube inserted, start tube feeds -Monitor troponins, serial EKGs, telemetry monitoring -patient has a component of aspiration, according to nursing staff he frequently chokes on his meals, will require a barium swallow once successfully extubated -Patient is a full code -Patient is awarded guardianship of the state phone number for Dianne Bruce, [phone] Status: Acute (2) Septic encephalopathy: Status: Acute (3) Pneumonia involving right lung: Status: Acute (4) Septic shock: Status: Acute (5) Hyperlipidemia: Status: Acute (6) Anxiety and depression: Status: Acute (7) Hypertension: Status: Acute (8) Hypothyroidism: Status: Acute (9) Other schizophrenia: Status: Acute (10) Mild intellectual disabilities: Status: Acute Attestations Medical Necessity Statement*: She requires hospitalization, for acute respiratory failure secondary to pneumonia Coding Level of Care Code Acute [employer] Technician for g Fwd Diagnoses Acute respiratory failure with hypoxia J96.01 Septic encephalopathy G93.41 Pneumonia involving right lung J18.9 Septic shock A41.9; R65.21 Hyperlipidemia E78.5 Anxiety and depression F41.9; F32.9 Hypertension I10 Hypothyroidism E03.9 Other schizophrenia F20.89 Mild intellectual disabilities F70
[2019-07-14 16:47] LABS: Glucose Point of Care 194 mg/dL (70-110)
[2019-07-14] MEDS: enoxaparin 40 mg/0.4 mL Syringe SUBCUT (17:19)
[2019-07-14] MEDS: lactated ringers 1,000 ML 50 ML IV (17:27)
[2019-07-14 17:54] LABS: Glucose Point of Care 198 mg/dL (70-110)
--- NOTE | 2019-07-14 18:31 | XRR_ITS ---
PROCEDURE INFORMATION: Exam: XR Chest, 1 View Exam date and time: 07/14/2019 6:33 PM Age: 64 years old Clinical indication: Device placement; Patient HX: Check for central line placement TECHNIQUE: Imaging protocol: XR of the chest Views: 1 view. COMPARISON: CR XR chest 1V portable [id number] 07/14/2019 5:18 AM FINDINGS: Tubes, catheters and devices: Interval placement of a left-sided internal jugular central venous catheter tip at the level of the atrial caval junction. No radiographic evidence of complication. No visible pneumothorax. Interval removal of the right-sided central venous catheter. Endotracheal tube in satisfactory position above the niecy. Nasogastric tube tip below the diaphragm out of the field of view. Lungs: Persistent subtle diffuse haziness to the right lung which could reflect low-grade active interstitial pneumonitis or edema. Minimal discoid atelectasis left lung base. Pleural space: Potential for small left pleural effusion. Heart/Mediastinum: Cardiac structures configuration stable. Bones/joints: Age-appropriate degenerative disease. XR/XR chest 1V portable [id number] IMPRESSION: Interval placement of a left internal jugular central venous catheter tip at the atrial caval junction without radiographic evidence of complication.
--- NOTE | 2019-07-14 19:29 | PM.MISC ---
Miscellaneous Note Purpose of Documentation: Procedure note for left central line placement: -Right central line was kinked, right central line was removed by Dr. Holman, it was kinked, site was dressed with bandage and draping, minimal bleeding -Left central line placement by wi, Dr. Holman helped -Under ultrasonography the left internal jugular vein was identified, collapsible, the left internal jugular artery was identified, pulsatile -Appropriate sterile procedure was used, gown, gloves, mask, hat -Patient was appropriately draped -Left internal jugular vein site was appropriately cleaned with ChloraPrep -Again using ultrasonography the left internal jugular vein was identified, collapsible, the left internal jugular artery was identified, pulsatile -Using central line needle, under ultrasonography, the needle was advanced towards the internal jugular vein, at 85 degrees, above the clavicle, towards the head, skin was pierced, and then needle was drawn, there was a dark flush of blood, nonpulsatile -Plastic container was removed, holding the needle in place, guidewire was advanced through the needle, -Then needle was removed over guidewire, pressure was kept on the area with a 4 x 4 -Using ultrasonography, I confirmed that the guidewire was in the center of the internal jugular vein -Then the plastic dilator was put over the guidewire, then using a sharp, skin was broken, guidewire was kept out of place, so that it was not cut by the guidewire -Then dilator was placed over the puncture -Plastic dilator was removed, -Then central line was advanced over the guidewire, all the central line was placed, the guidewire was then removed over the central line -All ports were flushed, good flow, with good return of blood -Then central line could was sutured into place -Then central line area was cleaned with ChloraPrep -Then central line area, appropriate plastic sticky cover was applied over area -Patient tolerated the procedure well, minimal bleeding -cxray shows Interval placement of a left internal jugular central venous catheter tip at the atrial caval junction without radiographic evidence of complication. I could not see any pneumothorax. -
[2019-07-14] MEDS: gabapentin 400 mg Capsule PO (22:01)
[2019-07-14] MEDS: propofol 1,000 MG/100 ML INJ 7.6 MG IV (22:09)
[2019-07-15] VITALS (71 sets, daily range): BP systolic 72–127; BP diastolic 40–78; PULSE 53–88; RESP 12–19; TEMP 36.8–37.1; O2SAT 98–100
[2019-07-15 00:16] LABS: Glucose Point of Care 158 mg/dL (70-110)
--- NOTE | 2019-07-15 02:41 | PC.NURSE ---
sedation vacation Proprofol paused to check patient alertness. Medication paused from [id number]. Patient was able to squeeze with both hands. patient was breathing over ventilation settings. patient made grimaces to painful stimuli. propofol started back at 0240. vital signs are stable. will continue to monitor.
[2019-07-15] MEDS: ipratropium-albuterol 3 mL Neb INHALATION ×6 (03:33→23:52)
[2019-07-15] MEDS: propofol 1,000 MG/100 ML INJ 7.6 MG IV ×2 (03:51→09:11)
[2019-07-15] MEDS: piperacillin-tazobactam 3.375 GM in sodium chloride 0.9% (plus) 50 ML IV ×3 (05:27→19:52)
[2019-07-15] MEDS: levothyroxine 150 mcg Tablet PO (05:46)
[2019-07-15 05:47] LABS: ABG PCO2 31.4 mmHg (35-45); ABG PH Result 7.49 (7.35-7.45); Arterial Blood Gas Hematocrit 35.3 % (42-52); Base Excess ABG 1.2 mmol/L (-2.0-2.0); Blood Gas Sample Site Brachial, right; Blood Gas Sample Type Arterial; Blood Gas Tidal Volume 0.5; HCO3 ABG 24.1 mmol/L (22-26); Oxygen Device VENT; PO2 ABG 88.4 mmHg (80.0-100.0)
[2019-07-15 05:51] LABS: Alanine Aminotransferase 12 U/L (0-41); Albumin Level 2.9 g/dL (3.5-5.2); Alkaline Phosphatase 146 IU/L (40-130); Anion Gap 11.5 (5-19); Aspartate Amino Transferase 20 U/L (0-40); Blood Urea Nitrogen 12 mg/dL (8-23); Carbon Dioxide 24 mmol/L (22-29); Chloride 106 mmol/L (98-107); Creatinine Clr Calc Pharmacy 78.7508; Globulin 3.4 g/dL (1.3-4.6); Glomerular Filtration Rate 75.2 mL/min (90-130); Glucose 197 mg/dL (65-115); Magnesium 1.9 mg/dL (1.7-2.3); Osmolality Calculated 288 mOsm/kg (285-295); Phosphorus 2.7 mg/dL (2.5-4.5); Potassium 3.5 mmol/L (3.5-5.1); Sodium 138 mmol/L (136-145); Total Bilirubin 0.4 mg/dL (0.15-1.2); Total Protein 6.3 g/dL (6.6-8.7)
[2019-07-15 06:04] LABS: Procalcitonin 1.22 ng/mL (0-0.5)
[2019-07-15 06:08] LABS: Glucose Point of Care 166 mg/dL (70-110)
--- NOTE | 2019-07-15 07:00 | XR_ITS ---
WS: [id number] PORTABLE CHEST HISTORY: sob COMPARISON: 07/14/2019 Nasogastric tube and endotracheal tube in the RIGHT IJ line are in good position. No interval change. Partial obscuration of the LEFT hemidiaphragm. Atelectasis and small effusion are similar to the prio r study. No definite pneumonia. There is some very mild haziness at the RIGHT lung base. No pneumotho rax. Cardiac size: Normal. Mediastinum/Aorta: Mild atherosclerosis aorta. No osseous abnormality seen. XR/XR chest 1V portable [id number] IMPRESSION: 1. LEFT basilar atelectasis and small effusion similar to the prior study. 2. Mild pneumonitis at the RIGHT lung base. 3. Endotracheal tube in good position.
[2019-07-15 08:42] LABS: Basophils # 0.1 10^3/uL (0.0-0.1); Basophils % 0.4 %; Eosinophils # 0.9 10^3/uL (0.0-0.8); Eosinophils % 5.8 %; Hematocrit 34.1 % (42.0-52.0); Hemoglobin 10.9 g/dL (11.7-16.6); Lymphocytes # 1.1 10^3/uL (0.8-4.8); Mean Corpuscular Hemoglobin 29.1 pg (28.0-34.0); Mean Corpuscular Volume 91.2 fL (80-94); Mean Platelet Volume 11.5 fL (7.4-10.4); Monocytes # 0.5 10^3/uL (0.2-0.9); Monocytes % 3.3 %; Neutrophils # 13.3 10^3/uL (1.8-7.7); Neutrophils % 82.9 %; Nucleated Red Blood Cells % 0 %; Platelet Count 156 10^3/cmm (130-400); Red Blood Count 3.74 10^6/uL (4.1-5.3); Red Cell Distribution Width 13.1 % (12.1-15.1)
[2019-07-15] MEDS: pantoprazole 40 mg SDV IVP (09:04)
[2019-07-15] MEDS: OLANZapine 10 mg TABLET 20 MG PO ×2 (09:05→17:05)
[2019-07-15] MEDS: lithium carbonate 300 mg Capsule PO ×2 (09:05→17:05)
[2019-07-15] MEDS: quetiapine 100 mg Tablet PO ×2 (09:05→17:05)
[2019-07-15] MEDS: gabapentin 400 mg Capsule PO ×3 (09:05→20:58)
--- NOTE | 2019-07-15 10:46 | PC.NURSE ---
weaning sedation at this time for sedation vacation
[2019-07-15 11:25] LABS: Glucose Point of Care 152 mg/dL (70-110)
--- NOTE | 2019-07-15 12:41 | P.PN_ITS ---
Subjective Subjective: Interval history: This morning, patient was seen, on sedation, he remains afebrile for the last 24 hours, remains on Levophed, map greater than 65, has minimal PEEP, minimal FiO2, lungs sound clear, has good urine output, patient was taken off sedation, was having episodes of agitation Vitals/I&O/Wt Last Vital Signs Temp 98.2 F 07/15/19 03:45 Pulse 88 07/15/19 11:31 Resp 17 07/15/19 11:25 BP 103/56 07/15/19 08:30 Pulse Ox 99 07/15/19 11:25 07/14/19 07/15/19 07/15/19 22:59 06:59 14:59 Intake Total 368.875 / 730.558 369.287 / 1099.845 131.541 / 131.541 Output Total 750 / 1350 375 / 1725 Balance -381.125 / -619.442 -5.713 / -625.155 131.541 / 131.541 Physical Exam Narrative: EXAM NARRATIVE: Intubated, sedated Const: COMMON NORMALS: no acute distress OTHER: Intubated, sedated HENMT: COMMON NORMALS: normocephalic HEAD & SCALP: normocephalic Neck/C-Spine: COMMON NORMALS: full ROM, no lymphadenopathy, no JVD and Thyroid normal THYROID: Thyroid normal Lymph: LYMPHATIC: no lymphadenopathy noted Chest: COMMONS NORMALS: normal inspection of the chest Resp: COMMON NORMALS: normal respiratory effort, No retractions and No use of accessory muscles AUSCULTATION: diminished lung sounds on the right in the lower lung brooks, in the upper lung brooks and throughout Cardio: COMMON NORMALS: no JVD, regular rate, regular rhythm, S1 normal heart sound present, S2 normal heart sound present, No gallops present (Cardio), No clicks present (Cardio) and No murmurs present (Cardio) RATE: regular rate RHYTHM: regular rhythm HEART SOUNDS: S1 normal heart sound present and S2 normal heart sound present GI: COMMON NORMALS: Normal to inspection, nondistended, normoactive bowel sounds present, Soft to palpation, non-tender and No hepatosplenomegaly present PALPATION: Yes Soft to palpation and Yes No hepatosplenomegaly present Extremity: COMMON NORMALS: normal to inspection, full ROM and no pedal edema Neuro: OTHER: Intubated, sedated, cannot follow neurologic exam Psych: OTHER: Intubated, sedated Urinary Catheter Management^: Chavez: Cath Placed During This Visit: yes Reason for Continuing Indwelling Catheter: Accurate Measurement of Urinary Output in Critically Ill Patients Urinary Catheter Date of Insertion: 07/13/19 Urinary Catheter Time of Insertion: 12:01 Data : 07/15/19 05:20 07/15/19 05:20 Micro: Microbiology 07/13/19 11:55 Sputum Culture - Preliminary Sputum - Endotracheal Tube Aspirate 07/13/19 11:40 Gram Stain - Final Sputum - Endotracheal Tube Aspirate Sputum Culture - Preliminary 07/13/19 08:00 Blood Culture - Preliminary Blood Gram positive cocci 07/14/19 15:11 MRSA Culture - Final Nose 07/14/19 11:47 Bacterial Antigens - Final Urine Kidney 07/13/19 08:02 Blood Culture - Preliminary Blood NEGATIVE TO DATE A&P Assessment and plan (1) Acute respiratory failure with hypoxia: -chest x-ray shows pneumonia pneumonia involving right lung -White blood cell count decreased to 16,000, pro-Sae 1.22 -pH 7.49, PCO2 31.4, PO2 88.4 -With septic encephalopathy, septic shock -Likely patient will be a difficult extubation, given his intellectual disability, anxiety, depression, schizophrenia, telemetry monitoring, will try t o extubate on Precedex Plan: -Patient requires ICU admission -Continue mechanical ventilation, PEEP of 5, FiO2 of 35% -Fentanyl and propofol for sedation -Left internal jugular central line in place -On Levophed -Chavez catheter in place, monitor urine output -Lovenox for DVT prophylaxis, Protonix for GI prophylaxis -Broad-spectrum antibiotics vancomycin and Zosyn -Urine cultures unremarkable, blood cultures 1 blood culture positive for gram- positive cocci, sputum cultures within normal limits, urine bacterial antigens negative, Covid 19 testing negative -Currently on Levophed, will have to remove central line, place another 1 on the left side, hopefully in the afternoon -Received sepsis bolus, not fluid responsive, will have nurses use NICOM -Monitor hemodynamics closely -OG tube inserted, on tube feeds, free water flushes start tube feeds -patient has a component of aspiration, according to nursing staff he frequently chokes on his meals, will require a barium swallow once successfully extubated -Patient is a full code -Patient is awarded guardianship of the [facility] phone number for Dianne Bruce, [phone] Status: Acute (2) Septic encephalopathy: Status: Acute (3) Pneumonia involving right lung: Status: Acute (4) Septic shock: Status: Acute (5) Hyperlipidemia: Status: Acute (6) Anxiety and depression: Status: Acute (7) Hypertension: Status: Acute (8) Hypothyroidism: Status: Acute (9) Other schizophrenia: Status: Acute (10) Mild intellectual disabilities: Status: Acute Attestations Medical Necessity Statement*: Patient requires hospitalization for acute respiratory failure, sepsis, septic shock, septic encephalopathy, pneumonia Coding Level of Care Code Acute Stain Applicator for [facility] Fwd Diagnoses Acute respiratory failure with hypoxia J96.01 Septic encephalopathy G93.41 Pneumonia involving right lung J18.9 Septic shock A41.9; R65.21 Hyperlipidemia E78.5 Anxiety and depression F41.9; F32.9 Hypertension I10 Hypothyroidism E03.9 Other schizophrenia F20.89 Mild intellectual disabilities F70
[2019-07-15 16:56] LABS: Glucose Point of Care 128 mg/dL (70-110)
[2019-07-15] MEDS: enoxaparin 40 mg/0.4 mL Syringe SUBCUT (17:05)
[2019-07-15] MEDS: propofol 1,000 MG/100 ML INJ 15.1 MG IV (19:52)
[2019-07-15] MEDS: propofol 1,000 MG/100 ML INJ 20.1 MG IV (23:07)
[2019-07-15 23:32] LABS: Glucose Point of Care 146 mg/dL (70-110)
[2019-07-16] VITALS (44 sets, daily range): BP systolic 76–118; BP diastolic 37–81; PULSE 64–112; RESP 12–21; TEMP 36.8–37.4; O2SAT 92–99
[2019-07-16] MEDS: piperacillin-tazobactam 3.375 GM in sodium chloride 0.9% (plus) 50 ML IV ×3 (03:53→19:36)
[2019-07-16] MEDS: propofol 1,000 MG/100 ML INJ 12.6 MG IV (04:14)
[2019-07-16] MEDS: ipratropium-albuterol 3 mL Neb INHALATION ×5 (04:32→20:20)
[2019-07-16 05:03] LABS: Alanine Aminotransferase 15 U/L (0-41); Albumin Level 2.7 g/dL (3.5-5.2); Alkaline Phosphatase 159 IU/L (40-130); Anion Gap 13.1 (5-19); Aspartate Amino Transferase 28 U/L (0-40); Blood Urea Nitrogen 9 mg/dL (8-23); Calcium 9.7 mg/dL (8.5-10.5); Carbon Dioxide 25 mmol/L (22-29); Chloride 107 mmol/L (98-107); Globulin 3.3 g/dL (1.3-4.6); Glucose 132 mg/dL (65-115); Osmolality Calculated 290 mOsm/kg (285-295); Potassium 4.1 mmol/L (3.5-5.1); Sodium 141 mmol/L (136-145); Total Bilirubin 0.3 mg/dL (0.15-1.2)
[2019-07-16 05:04] LABS: Magnesium 1.9 mg/dL (1.7-2.3); Phosphorus 3.7 mg/dL (2.5-4.5)
[2019-07-16 05:14] LABS: Procalcitonin 0.77 ng/mL (0-0.5)
[2019-07-16 05:34] LABS: ABG PCO2 39.9 mmHg (35-45); ABG PH Result 7.43 (7.35-7.45); Arterial Blood Gas Hematocrit 33.8 % (42-52); Base Excess ABG 1.9 mmol/L (-2.0-2.0); Blood Gas Allen Test Pos; Blood Gas Sample Site Radial, right; Blood Gas Sample Type Arterial; HCO3 ABG 26.4 mmol/L (22-26); Oxygen Device VENT; PO2 ABG 75.5 mmHg (80.0-100.0)
[2019-07-16] MEDS: levothyroxine 150 mcg Tablet PO (05:48)
--- NOTE | 2019-07-16 07:00 | XRR_ITS ---
PROCEDURE INFORMATION: Exam: XR Chest, 1 View Exam date and time: 07/16/2019 4:53 AM Age: 64 years old Clinical indication: Shortness of breath; Additional info: SOB TECHNIQUE: Imaging protocol: XR of the chest Views: 1 view. COMPARISON: CR XR chest 1V portable [id number] 07/15/2019 5:41 AM FINDINGS: Tubes, catheters and devices: An endotracheal tube is placed with its tip approximately 5 5 cm from the niecy. A nasogastric tube is present with its tip in the proximal stomach. Lungs: Some strandy and patchy opacities are present in the lower hemithoraces bilaterally, findings compatible with a bilateral basilar pneumonitis. Pleural space: There is a left pleural effusion that obscures the left hemidiaphragm. Heart/Mediastinum: Unremarkable. No cardiomegaly. Vasculature: A left internal jugular vein central venous line is placed with its tip at the level of the superior vena cava. Bones/joints: Unremarkable. XR/XR chest 1V portable [id number] IMPRESSION: 1. Continuing left pleural effusion 2. Strandy and patchy opacities in the lower hemithoraces bilaterally compatible with a bilateral basilar atelectasis or pneumonitis. 3. Endotracheal tube tip approximately 5.5 cm from the niecy.
[2019-07-16] MEDS: pantoprazole 40 mg SDV IVP (09:01)
[2019-07-16] MEDS: gabapentin 400 mg Capsule PO ×3 (09:01→21:36)
[2019-07-16] MEDS: quetiapine 100 mg Tablet PO ×2 (09:01→17:07)
[2019-07-16] MEDS: lithium carbonate 300 mg Capsule PO ×2 (09:02→17:10)
[2019-07-16] MEDS: OLANZapine 10 mg TABLET 20 MG PO ×2 (09:02→17:07)
[2019-07-16 09:18] LABS: Basophils # 0.1 10^3/uL (0.0-0.1); Basophils % 0.5 %; Eosinophils # 0.9 10^3/uL (0.0-0.8); Eosinophils % 6.6 %; Hematocrit 33.3 % (42.0-52.0); Hemoglobin 10.3 g/dL (11.7-16.6); Lymphocytes % 7.6 %; Mean Corpuscular HGB Conc 30.9 g/dL (30.0-36.0); Mean Corpuscular Hemoglobin 28.2 pg (28.0-34.0); Mean Corpuscular Volume 91.2 fL (80-94); Mean Platelet Volume 11.6 fL (7.4-10.4); Monocytes # 0.5 10^3/uL (0.2-0.9); Monocytes % 3.7 %; Neutrophils # 10.5 10^3/uL (1.8-7.7); Neutrophils % 81.1 %; Nucleated Red Blood Cells % 0 %; Platelet Count 159 10^3/cmm (130-400); Red Blood Count 3.65 10^6/uL (4.1-5.3); Red Cell Distribution Width 12.9 % (12.1-15.1)
--- NOTE | 2019-07-16 09:20 | PM.PN ---
Subjective Subjective: Interval history: No acute events overnight. This morning on evaluation patient continues to remain on minimal Levophed to keep his mean arterial pressure over 65 mmHg. He is sedated with propofol and fentanyl continue to remain on ventilator PEEP of 5 at present of pressure support 10. Vitals, labs noted. Vitals/I&O/Wt Last Vital Signs Temp 98.3 F 07/16/19 04:00 Pulse 100 07/16/19 08:00 Resp 16 07/16/19 08:54 BP 95/59 07/16/19 08:00 Pulse Ox 95 07/16/19 08:00 07/15/19 07/16/19 07/16/19 22:59 06:59 14:59 Intake Total 441.193 / 965.383 8941.541 / 2035.275 50 / 50 Output Total 1600 / 1600 1225 / 2825 Balance -1158.807 / -827.266 37.541 / -789.725 50 / 50 Physical Exam Narrative: EXAM NARRATIVE: General: No acute distress, sedated, nonpurposeful movements on arousal HEENT: PERRLA, pupils bilaterally equal and reactive Chest: Normal vesicular breath sounds bilaterally, coarse crackles right middle and lower zone, decreased air entry right upper lobe CVS: S1-S2 regular, no murmurs, no tachycardia, no gallops, no rubs Abdomen: Soft, nontender, no organomegaly, bowel sounds present Neuro: Sedated, GCS: E1 M1 VT Urinary Catheter Management^: Chavez: Cath Placed During This Visit: yes Reason for Continuing Indwelling Catheter: Accurate Measurement of Urinary Output in Critically Ill Patients Urinary Catheter Date of Insertion: 07/13/19 Urinary Catheter Time of Insertion: 12:01 Data : 07/16/19 04:10 07/16/19 04:10 Micro: Microbiology 07/13/19 08:00 Blood Culture - Preliminary Blood Coagulase negativ staphylococc 07/13/19 11:55 Sputum Culture - Preliminary Sputum - Endotracheal Tube Aspirate 07/13/19 11:40 Gram Stain - Final Sputum - Endotracheal Tube Aspirate Sputum Culture - Preliminary A&P Assessment and plan (1) Septic shock: Status: Acute (2) Acute respiratory failure with hypoxia: Status: Acute (3) Pneumonia involving right lung: Status: Acute (4) Septic encephalopathy: Status: Acute (5) Hypertension: Status: Acute (6) Hypothyroidism: Status: Acute (7) Anxiety and depression: Status: Acute (8) Other schizophrenia: Status: Acute (9) Mild intellectual disabilities: Status: Acute (10) Hyperlipidemia: Status: Acute Additional A&P Information Septic shock secondary to right-sided pneumonia most likely aspiration pneumonia: Continue weaning Levophed keeping mean arterial pressure was 65. Start on normal saline at 100 cc/h. Continue with vancomycin and Zosyn both renally dosed. Will de-escalate antibiotics as per the culture results. Blood culture from admission has 1 set out of 4+ for coagulase-negative staph. Will repeat blood culture. Most likely the positive blood culture is a contaminant but cannot rule out as it is coagulase-negative staph. Sputum culture negative for now. Sedation vacation. We will try to extubate patient today keeping saturation over 92%. Stop propofol and switch to Precedex. Continue fentanyl for now. In preparation for extubation stop a tube feeds for now. While patient is sedated we will put an NG tube as anticipate patient's mentation would not be appropriate post extubation as well given intellectual disability, schizophrenia. Encephalopathy: Most likely a combination of chronic schizophrenia, mild intellectual disability, anxiety depression and septic encephalopathy at present. We will continue to monitor during the admission. Continue with chronic psychiatric medications like lithium 300 twice daily, olanzapine 20 mg twice daily, Seroquel 100 mg twice daily. Medication confirmed by recent psychiatric note from April 2019. Social issues:-Patient is awarded guardianship of the state phone number for Dianne Bruce, [phone]. We will try to extubate patient today but if unsuccessful will speak with the state appointed guardian regarding grave prognosis given the fact that patient has intellectual disability and will continue to have aspiration pneumonia most likely because of poor mentation. Continue chronic home medications like levothyroxine but will hold off on antihypertensives given septic shock. Full code. Lovenox for DVT prophylaxis. Tube feedings. On hold for now for possible extubation. Attestations Medical Necessity Statement*: Septic shock Critical Care Time: Septic shock, intubated Critical Care Time (min): 80 Coding Level of Care Code Acute Dry Man for [facility] Diagnoses Septic shock A41.9; R65.21 Acute respiratory failure with hypoxia J96.01 Pneumonia involving right lung J18.9 Septic encephalopathy G93.41 Hypertension I10 Hypothyroidism E03.9 Anxiety and depression F41.9; F32.9 Other schizophrenia F20.89 Mild intellectual disabilities F70 Hyperlipidemia E78.5
[2019-07-16 09:26] LABS: Iron 40 ug/dL (59-158); Percent Saturation 24.3 % (20-50); Total Iron Binding Capacity 164 mcg/dl; Unsaturated Iron Binding 124 ug/dL (112-347)
--- NOTE | 2019-07-16 09:35 | PC.NURSE ---
weaning vent and off levophed at this time .. more awake at this time. weaning sedation and placed on mmv peep5 ps 5 28%
[2019-07-16] MEDS: dexmedetomidine 400 MCG in sodium chloride 0.9% (100 ml) 100 ML 65.5 MCG IV (09:52)
--- NOTE | 2019-07-16 11:14 | PC.SOCIAL ---
Pg 2 IMM Explained to Debo Flores Pg 2 IMM. She verbally understands. No questions voiced. Provided pt a copy & left on pt's bedside table. Signed, dated, & timed copy & placed in pt's chart.
[2019-07-16] MEDS: sodium chloride 0.9% 1,000 ML 100 ML IV ×2 (13:46→22:47)
[2019-07-16] MEDS: hyDROXYzine 25 mg Capsule 50 MG PO ×2 (15:57→21:36)
--- NOTE | 2019-07-16 15:58 | PC.NURSE ---
extubated and placed on o2 4l nc and ng removed dobhoff in place
[2019-07-16] MEDS: enoxaparin 40 mg/0.4 mL Syringe SUBCUT (17:06)
[2019-07-16] MEDS: ascorbic acid 500 mg Tablet 1000 MG PO (17:07)
[2019-07-16] MEDS: scopolamine 1.5 Patch 1 PATCH TRANSDERMA (20:02)
--- NOTE | 2019-07-16 20:23 | CTR_ITS ---
PROCEDURE INFORMATION: Exam: CT Head Without Contrast Exam date and time: 07/16/2019 8:27 PM Age: 64 years old Clinical indication: Altered mental status/memory loss; Confusion or disorientation; Patient HX: AMS - encephalopathy; Additional info: [facility] TECHNIQUE: Imaging protocol: Computed tomography of the head without contrast. Radiation optimization: All CT scans at this facility use at least one of these dose optimization techniques: automated exposure control; mA and/or kV adjustment per patient size (includes targeted exams where dose is matched to clinical indication); or iterative reconstruction. COMPARISON: CT head wo con* [id number] 07/13/2019 8:40 AM RADIATION DOSE METRICS: Total DLP: 935.28 mGy-cm FINDINGS: Brain: There is mild diffuse cerebral atrophy present, consistent with this patient's age. Periventricular and subcortical white matter low densities are present which at this age likely represent microvascular ischemic change. No evidence for large acute ischemic infarction. Please note acute ischemia can be occult by head CT. Ventricles: Normal. No ventriculomegaly. Bones/joints: Left frontal richard hole. Hyperostosis frontalis. Sinuses: There is mucosal thickening in the left maxillary sinus. Mastoid air cells: Visualized mastoid air cells are well aerated. Soft tissues: Unremarkable. CT/CT head wo con* [id number] IMPRESSION: There are senescent changes of the brain as described above. No evidence for large acute ischemic infarction or acute intracranial injury. Radiation Dose CTDIVOL = (mGy): DLP = 935.28 (mGy-cm)
--- NOTE | 2019-07-16 20:23 | CTR_ITS ---
PROCEDURE INFORMATION: Exam: CT Chest Without Contrast Exam date and time: 07/16/2019 8:27 PM Age: 64 years old Clinical indication: Shortness of breath; Patient HX: SOB - pneumonia - triple lumen and dobhoff in place; Additional info: Pna TECHNIQUE: Imaging protocol: Computed tomography of the chest without contrast. Radiation optimization: All CT scans at this facility use at least one of these dose optimization techniques: automated exposure control; mA and/or kV adjustment per patient size (includes targeted exams where dose is matched to clinical indication); or iterative reconstruction. COMPARISON: CT chest con [id number] 03/02/2015 5:55 AM RADIATION DOSE METRICS: Total DLP: 911.73 mGy-cm FINDINGS: Tubes, catheters and devices: Dobbhoff catheter. Pacemaker. Lungs: Small 5 mm ground-glass nodular structure right middle lobe (series 3, image 41 and 42). Patchy subsegmental mixed ground-glass and consolidated alveolar airspace disease posterior segment right upper lobe, inferior segment lingula, base of the right middle lobe, and bilateral lower lobes of active pneumonitis/pneumonia. Pleural space: Scant right pleural effusion. Heart: Cardiac structures and configuration with arterial sclerosis. No visible pericardial effusion. Aorta: The thoracic aorta is nonaneurysmal with mild arterial sclerotic disease. Lymph nodes: Few marginally prominent middle mediastinal and hilar lymph nodes most likely reactive. Gallbladder and bile ducts: Enlarged gallbladder. Bones/joints: Diffuse idiopathic skeletal hyperostosis with ankylosing spondylitis. Soft tissues: Unremarkable. CT/CT chest con [id number] IMPRESSION: 1. Bilateral pneumonitis/pneumonia of subsegmental volume. 2. Scant right pleural effusion. 3. Small 5 mm ground-glass pulmonary nodule right middle lobe. No routine follow-up is indicated. (Jessica et al., Fleischner Society, 2017) Radiation Dose CTDIVOL = (mGy): DLP = 911.73 (mGy-cm)
[2019-07-16 21:01] LABS: Glucose Point of Care 119 mg/dL (70-110)
[2019-07-16 21:02] LABS: Glucose Point of Care 133 mg/dL (70-110)
[2019-07-16 21:02] LABS: Glucose Point of Care 132 mg/dL (70-110)
[2019-07-16 23:28] LABS: Glucose Point of Care 102 mg/dL (70-110)
[2019-07-17] VITALS (17 sets, daily range): BP systolic 107–148; BP diastolic 66–83; PULSE 90–104; RESP 14–25; TEMP 36.9–37.8; O2SAT 92–100
[2019-07-17] MEDS: ipratropium-albuterol 3 mL Neb INHALATION ×6 (00:14→20:52)
[2019-07-17] MEDS: piperacillin-tazobactam 3.375 GM in sodium chloride 0.9% (plus) 50 ML IV ×3 (04:10→19:31)
[2019-07-17 05:31] LABS: Basophils # 0.1 10^3/uL (0.0-0.1); Basophils % 0.4 %; Eosinophils # 0.7 10^3/uL (0.0-0.8); Eosinophils % 5.1 %; Hematocrit 34.5 % (42.0-52.0); Hemoglobin 10.8 g/dL (11.7-16.6); Lymphocytes # 0.9 10^3/uL (0.8-4.8); Lymphocytes % 6.4 %; Mean Corpuscular HGB Conc 31.3 g/dL (30.0-36.0); Mean Corpuscular Hemoglobin 29.3 pg (28.0-34.0); Mean Corpuscular Volume 93.5 fL (80-94); Mean Platelet Volume 11.2 fL (7.4-10.4); Monocytes # 0.7 10^3/uL (0.2-0.9); Monocytes % 4.6 %; Neutrophils % 82.9 %; Nucleated Red Blood Cells % 0 %; Platelet Count 180 10^3/cmm (130-400); Red Blood Count 3.69 10^6/uL (4.1-5.3); Red Cell Distribution Width 13.2 % (12.1-15.1); White Blood Count 14.5 10^3/uL (4.0-10.0)
[2019-07-17 05:42] LABS: Vancomycin Trough 23.7 ug/mL (10-15)
[2019-07-17] MEDS: levothyroxine 150 mcg Tablet PO (05:51)
[2019-07-17 07:16] LABS: Alanine Aminotransferase 24 U/L (0-41); Albumin Level 2.7 g/dL (3.5-5.2); Alkaline Phosphatase 154 IU/L (40-130); Anion Gap 13.1 (5-19); Aspartate Amino Transferase 56 U/L (0-40); Blood Urea Nitrogen 7 mg/dL (8-23); Calcium 9.8 mg/dL (8.5-10.5); Carbon Dioxide 24 mmol/L (22-29); Chloride 112 mmol/L (98-107); Creatinine Clr Calc Pharmacy 98.4385; Globulin 3.6 g/dL (1.3-4.6); Glomerular Filtration Rate 97.3 mL/min (90-130); Glucose 124 mg/dL (65-115); Osmolality Calculated 297 mOsm/kg (285-295); Potassium 4.1 mmol/L (3.5-5.1); Sodium 145 mmol/L (136-145); Total Bilirubin 0.4 mg/dL (0.15-1.2); Total Protein 6.3 g/dL (6.6-8.7)
[2019-07-17] MEDS: pantoprazole 40 mg SDV IVP (08:44)
[2019-07-17] MEDS: sodium chloride 0.9% 1,000 ML 100 ML IV (08:47)
--- NOTE | 2019-07-17 09:19 | PM.PN ---
Subjective Subjective: Interval history: No acute events overnight. In last 24 hours patient was extubated successfully yesterday afternoon. Patient has been off levo fed since yesterday afternoon. Post extubation patient was mildly confused so CT head and CT chest was done. Labs, vitals, CT results appreciated. On examination today patient is a little more awake, is responding and following mild commands. I have a feeling that this is his baseline. Call placed to state appointed guardian but was not able to talk so voicemail was left to discuss goals of care. Vitals/I&O/Wt Last Vital Signs Temp 99.5 F 07/17/19 08:33 Pulse 96 07/17/19 08:09 Resp 16 07/17/19 08:09 BP 107/68 07/17/19 08:00 Pulse Ox 97 07/17/19 08:09 07/16/19 07/17/19 07/17/19 22:59 06:59 14:59 Intake Total 1527.629 / 3081.629 50 / 3131.629 1050 / 1050 Output Total 1000 / 2225 1400 / 3625 Balance 527.629 / 856.629 -1350 / -248.939 9456 / 1050 Physical Exam Narrative: EXAM NARRATIVE: General: No acute distress, overweight, following simple commands with his eyes and moaning as responses when spoken to directly. HEENT: PERRLA, pupils bilaterally equal and reactive Chest: Normal vesicular breath sounds bilaterally, coarse crackles right middle and lower zone, decreased air entry right upper lobe CVS: S1-S2 regular, no murmurs, no tachycardia, no gallops, no rubs Abdomen: Soft, nontender, no organomegaly, bowel sounds present Neuro: Awake, following simple commands, moves slightly to his baseline. Urinary Catheter Management^: Chavez: Cath Placed During This Visit: yes Reason for Continuing Indwelling Catheter: Accurate Measurement of Urinary Output in Critically Ill Patients Urinary Catheter Date of Insertion: 07/13/19 Urinary Catheter Time of Insertion: 12:01 Data : 07/17/19 05:06 07/17/19 06:48 Micro: Microbiology 07/13/19 11:40 Gram Stain - Final Sputum - Endotracheal Tube Aspirate Sputum Culture - Preliminary 07/13/19 11:55 Sputum Culture - Preliminary Sputum - Endotracheal Tube Aspirate 07/16/19 11:11 Blood Culture - Preliminary Blood SPECIMEN COLLECTED 07/16/19 11:10 Blood Culture - Preliminary Blood SPECIMEN COLLECTED A&P Assessment and plan (1) Septic shock: Status: Acute (2) Acute respiratory failure with hypoxia: Status: Acute (3) Pneumonia involving right lung: Status: Acute (4) Septic encephalopathy: Status: Acute (5) Hypertension: Status: Acute (6) Hypothyroidism: Status: Acute (7) Anxiety and depression: Status: Acute (8) Other schizophrenia: Status: Acute (9) Mild intellectual disabilities: Status: Acute (10) Hyperlipidemia: Status: Acute Additional A&P Information Septic shock secondary to right-sided pneumonia most likely aspiration pneumonia: Extubated on July 15. Patient has been off Levophed with mean arterial pressure is more than 65 since yesterday afternoon. Continue IV fluids with normal saline at 100 cc/h. Continue with vancomycin and Zosyn both renally dosed. Will de-escalate antibiotics as per the culture results. Follow blood cultures from admission has 1 set positive for coagulase-negative staph. Repeat blood cultures have remained negative. Most likely looking at the CT chest patient has been chronically aspirating with aspirate present in the trachea as well. Will have to discuss with a state appointed POA regarding further goals of care/possible PEG tube placement. For now we will keep patient n.p.o. We will do official speech and swallow evaluation tomorrow once patient is a little more awake. Metabolic encephalopathy: Improving most likely secondary to combined effects of sepsis and prolonged sedation with propofol and fentanyl which was going for last 4 days. We will keep n.p.o. today and will use official speech and swallow evaluation tomorrow once patient is little more awake. Unfortunately will not be able to give patient chronic psychiatric medication like lithium 300 twice daily, olanzapine 20 mg twice daily, Seroquel 100 mg twice daily. Medication confirmed by recent psychiatric note from April 2019. Social issues:-Patient is awarded guardianship of the state phone number for Dianne Bruce, [phone]. As stated above try to give a call today and left a message. We will try to call tomorrow again to discuss further goals of care. It seems because of poor mental status patient is at high risk of chronic aspiration and would cause recurrent aspiration pneumonias. Continue chronic home medications like levothyroxine but will hold off on antihypertensives given septic shock. Full code. Lovenox for DVT prophylaxis. Tube feedings on hold for now because of poor mentation. Attestations Medical Necessity Statement*: Sepsis secondary to aspiration pneumonia, metabolic encephalopathy Time Spent in Patient Care: Greater than 35 minutes Coding Level of Care Code Acute Bag Repairer for [facility] Diagnoses Septic shock A41.9; R65.21 Acute respiratory failure with hypoxia J96.01 Pneumonia involving right lung J18.9 Septic encephalopathy G93.41 Hypertension I10 Hypothyroidism E03.9 Anxiety and depression F41.9; F32.9 Other schizophrenia F20.89 Mild intellectual disabilities F70 Hyperlipidemia E78.5
[2019-07-17 11:29] LABS: Glucose Point of Care 95 mg/dL (70-110)
[2019-07-17 12:07] LABS: Glucose Point of Care 112 mg/dL (70-110)
[2019-07-17 16:57] LABS: Glucose Point of Care 122 mg/dL (70-110)
[2019-07-17] MEDS: enoxaparin 40 mg/0.4 mL Syringe SUBCUT (17:16)
[2019-07-17] MEDS: lanolin oint 7 gm 1 APPLIC TOPICAL (20:07)
[2019-07-17] MEDS: hyDROXYzine 25 mg Capsule 50 MG PO (20:08)
[2019-07-17] MEDS: gabapentin 400 mg Capsule PO (20:08)
[2019-07-17] MEDS: tamsulosin 0.4 mg Capsule PO (20:08)
--- NOTE | 2019-07-17 20:47 | PC.PHAR ---
Vancomycin trough level at dose of 1250mg IVPB every 12 hours is 22.7. Next dose is held and resumed at 1250mg IVPB every 24 hours with another trough level to be obtained before the fourth q 24 hours dose.
[2019-07-17 23:34] LABS: Glucose Point of Care 101 mg/dL (70-110)
[2019-07-18] VITALS (27 sets, daily range): BP systolic 121–143; BP diastolic 69–98; PULSE 75–104; RESP 11–30; TEMP 37.1–37.3; O2SAT 90–100
[2019-07-18] MEDS: ipratropium-albuterol 3 mL Neb INHALATION ×6 (00:53→20:04)
[2019-07-18] MEDS: sodium chloride 0.9% 1,000 ML 50 ML IV (02:15)
[2019-07-18] MEDS: piperacillin-tazobactam 3.375 GM in sodium chloride 0.9% (plus) 50 ML IV ×3 (04:08→20:33)
[2019-07-18 05:07] LABS: Basophils # 0.1 10^3/uL (0.0-0.1); Basophils % 0.5 %; Eosinophils # 0.5 10^3/uL (0.0-0.8); Eosinophils % 3.8 %; Hematocrit 34.8 % (42.0-52.0); Hemoglobin 10.5 g/dL (11.7-16.6); Lymphocytes % 7.2 %; Mean Corpuscular HGB Conc 30.2 g/dL (30.0-36.0); Mean Corpuscular Hemoglobin 28.2 pg (28.0-34.0); Mean Corpuscular Volume 93.5 fL (80-94); Mean Platelet Volume 10.5 fL (7.4-10.4); Monocytes # 0.7 10^3/uL (0.2-0.9); Monocytes % 5.3 %; Neutrophils % 82.8 %; Nucleated Red Blood Cells % 0 %; Platelet Count 179 10^3/cmm (130-400); Red Blood Count 3.72 10^6/uL (4.1-5.3); Red Cell Distribution Width 13.2 % (12.1-15.1); White Blood Count 13.3 10^3/uL (4.0-10.0)
[2019-07-18 05:27] LABS: Glucose Point of Care 96 mg/dL (70-110)
[2019-07-18 05:28] LABS: Alanine Aminotransferase 39 U/L (0-41); Alkaline Phosphatase 144 IU/L (40-130); Anion Gap 16.1 (5-19); Aspartate Amino Transferase 71 U/L (0-40); Blood Urea Nitrogen 10 mg/dL (8-23); Calcium 10.2 mg/dL (8.5-10.5); Carbon Dioxide 25 mmol/L (22-29); Chloride 111 mmol/L (98-107); Creatinine Clr Calc Pharmacy 98.4385; Globulin 3.6 g/dL (1.3-4.6); Glomerular Filtration Rate 97.3 mL/min (90-130); Glucose 110 mg/dL (65-115); Osmolality Calculated 303 mOsm/kg (285-295); Potassium 4.1 mmol/L (3.5-5.1); Sodium 148 mmol/L (136-145); Total Bilirubin 0.3 mg/dL (0.15-1.2); Total Protein 6.6 g/dL (6.6-8.7)
[2019-07-18] MEDS: levothyroxine 150 mcg Tablet PO (05:31)
[2019-07-18 07:38] LABS: Glucose Point of Care 99 mg/dL (70-110)
[2019-07-18] MEDS: gabapentin 400 mg Capsule PO ×3 (08:01→20:33)
[2019-07-18] MEDS: quetiapine 100 mg Tablet PO ×2 (08:01→16:48)
[2019-07-18] MEDS: atorvastatin 40 mg Tablet 20 MG PO (08:01)
[2019-07-18] MEDS: OLANZapine 10 mg TABLET 20 MG PO ×2 (08:02→16:48)
[2019-07-18] MEDS: pantoprazole 40 mg SDV IVP (08:02)
[2019-07-18] MEDS: ascorbic acid 500 mg Tablet 1000 MG PO ×2 (08:02→16:50)
[2019-07-18] MEDS: hyDROXYzine 25 mg Capsule 50 MG PO ×3 (08:02→20:33)
[2019-07-18] MEDS: lithium carbonate 300 mg Capsule PO ×2 (08:02→16:49)
--- NOTE | 2019-07-18 09:41 | P.PN_ITS ---
Subjective Subjective: Interval history: No acute events overnight. Patient remains hemodynamically stable, afebrile. Patient has not had any nausea, vomiting, diarrhea. On examination patient is lying comfortably in bed is able to respond with his eyes and moaning. As per nurse patient continues to have oral secretions decreased than yesterday which mostly is not able to clear out on his own but sometime is able to cough up. Had a goals of care discussion with patient's state appointed healthcare financial foundations representative and Lindsey Debo who state in charge at [facility] patient resides. As per witness 90 patient at baseline is able to talk sometimes clearly but more often than not and mumbled words. He does have a tendency of pulling on things but in past has been able to manage the urinary catheter off for over a month. As per Ms. Edmondson patient might be able to tolerate and do well with PEG tube placement. I waiting to hear back from patient's healthcare financial foundations representative Lindsey Dianne Mistry regarding her decision. Vitals/I&O/Wt Last Vital Signs Temp 99.1 F 07/18/19 04:00 Pulse 104 H 07/18/19 09:00 Resp 14 07/18/19 09:00 BP 143/98 07/18/19 09:00 Pulse Ox 97 07/18/19 09:00 07/17/19 07/18/19 07/18/19 22:59 06:59 14:59 Intake Total 150 / 2121.667 728.333 / 2850.000 Output Total 1350 / 2750 Balance 150 / 721.667 -621.667 / 100.000 Physical Exam Narrative: EXAM NARRATIVE: General: No acute distress, overweight, following simple commands with his eyes and moaning as responses when spoken to directly. HEENT: PERRLA, pupils bilaterally equal and reactive Chest: Bilateral conductive air sounds present, CVS: S1-S2 regular, no murmurs, no tachycardia, no gallops, no rubs Abdomen: Soft, nontender, no organomegaly, bowel sounds present Neuro: Awake, following simple commands, moves slightly to his baseline. Urinary Catheter Management^: Chavez: Cath Placed During This Visit: yes Reason for Continuing Indwelling Catheter: Accurate Measurement of Urinary Output in Critically Ill Patients Urinary Catheter Date of Insertion: 07/13/19 Urinary Catheter Time of Insertion: 12:01 Data : 07/18/19 04:39 07/18/19 04:39 Micro: Microbiology 07/13/19 08:02 Blood Culture - Final Blood NO GROWTH AFTER 5 DAYS 07/13/19 11:55 Sputum Culture - Preliminary Sputum - Endotracheal Tube Aspirate 07/13/19 08:00 Blood Culture - Preliminary Blood Coagulase negativ staphylococc 07/13/19 11:40 Gram Stain - Final Sputum - Endotracheal Tube Aspirate Sputum Culture - Preliminary 07/16/19 11:11 Blood Culture - Preliminary Blood NEGATIVE TO DATE 07/16/19 11:10 Blood Culture - Preliminary Blood NEGATIVE TO DATE A&P Assessment and plan (1) Septic shock: Status: Acute (2) Acute respiratory failure with hypoxia: Status: Acute (3) Pneumonia involving right lung: Status: Acute (4) Septic encephalopathy: Status: Acute (5) Hypertension: Status: Acute (6) Hypothyroidism: Status: Acute (7) Anxiety and depression: Status: Acute (8) Other schizophrenia: Status: Acute (9) Mild intellectual disabilities: Status: Acute (10) Hyperlipidemia: Status: Acute Additional A&P Information Septic shock secondary to right-sided pneumonia most likely aspiration pneumonia: Resolved. Extubated on July 15. Off Levophed since July 15 as well. Continue with normal saline at 100 cc/h. Continue with vancomycin and Zosyn both renally dosed. Will de-escalate antib iotics as per the culture results. We will plan to continue antibiotics to finish a course of 7 days. Day 6 today. Patient is going for PEG tube placement tomorrow we will continue antibiotics perioperatively. Follow blood cultures from admission has 1 set positive for coagulase-negative staph. Repeat blood cultures have remained negative. Most likely looking at the CT chest patient has been chronically aspirating most likely secondary to his underlying poor mentation. As per goals of care discussion with state appointed POA and in charge at the [place] [facility] he resides most likely patient would go for a PEG tube placement. I am waiting for confirmation from state appointed POA. For now we will continue n.p.o. except medications. We will do official speech and swallow evaluation tomorrow once patient is a little more awake. Hold Lovenox for possible PEG tube placement tomorrow. Metabolic encephalopathy: Improving. Most likely secondary to combined effects of sepsis, baseline poor mentation due to intellectual disabilities and prolonged sedation with propofol and fentanyl which was going for last 4 days. We will keep n.p.o. today and will use official speech and swallow evaluation tomorrow once patient is little more awake. Continue chronic medications like lithium 300 twice daily, olanzapine 20 mg twice daily, Seroquel 100 mg twice daily. Medication confirmed by recent psychiatric note from April 2019. Social issues:-Patient is awarded guardianship of the state phone number for Ms. Dianne Mistry, [phone]. Unfortunately patient has poor baseline mental and functional capacity. Given his poor mentation at baseline patient is most likely chronically aspirating and is at high risk of developing frequent aspiration pneumonias. Had a long discussion with healthcare proxy, Ms. Edmondson mostly in charge at the [facility] regarding further goals of care and possible PEG tube placement. For now most likely patient will go for PEG tube placement. Awaiting confirmation from healthcare proxy. We will also discussed regarding CODE STATUS with healthcare proxy at that time. Continue chronic home medications like levothyroxine. Hypertension: Blood pressures better now. On examination today more than 140/80. We will start him back on Lopressor but at a lower dose. We will start him on metoprolol 25 mg twice daily. Full code. Lovenox for DVT prophylaxis. For now for possible PEG tube placement tomorrow Tube feedings on hold for now because of poor mentation. Attestations Medical Necessity Statement*: Septic shock secondary to aspiration pneumonia, chronic intellectual disability, metabolic encephalopathy Time Spent in Patient Care: Greater than 35 minutes (>than 50% of time spent in counselling and/or direct pt care on unit) . Coding Level of Care Code Acute Tray Service Worker for [facility] Fwd Diagnoses Septic shock A41.9; R65.21 Acute respiratory failure with hypoxia J96.01 Pneumonia involving right lung J18.9 Septic encephalopathy G93.41 Hypertension I10 Hypothyroidism E03.9 Anxiety and depression F41.9; F32.9 Other schizophrenia F20.89 Mild intellectual disabilities F70 Hyperlipidemia E78.5
--- NOTE | 2019-07-18 09:49 | PC.SOCIAL ---
IMM Update Pg 2 of IMM updated. Copy left at bedside.
[2019-07-18 14:40] LABS: Glucose Point of Care 112 mg/dL (70-110)
[2019-07-18] MEDS: metoprolol tartrate 25 mg Tablet PO (16:50)
[2019-07-18 17:36] LABS: Glucose Point of Care 116 mg/dL (70-110)
[2019-07-18] MEDS: tamsulosin 0.4 mg Capsule PO (20:33)
[2019-07-18 23:02] LABS: Glucose Point of Care 89 mg/dL (70-110)
[2019-07-19] VITALS (21 sets, daily range): BP systolic 113–164; BP diastolic 68–91; PULSE 72–95; RESP 12–21; TEMP 36.9–37.4; O2SAT 94–98
[2019-07-19] MEDS: ipratropium-albuterol 3 mL Neb INHALATION ×5 (00:15→23:36)
[2019-07-19] MEDS: piperacillin-tazobactam 3.375 GM in sodium chloride 0.9% (plus) 50 ML IV ×3 (04:25→19:34)
[2019-07-19 05:38] LABS: Basophils # 0.1 10^3/uL (0.0-0.1); Basophils % 0.5 %; Eosinophils # 0.6 10^3/uL (0.0-0.8); Eosinophils % 4.6 %; Hematocrit 35.1 % (42.0-52.0); Hemoglobin 10.7 g/dL (11.7-16.6); Lymphocytes # 1.1 10^3/uL (0.8-4.8); Lymphocytes % 8.9 %; Mean Corpuscular HGB Conc 30.5 g/dL (30.0-36.0); Mean Corpuscular Hemoglobin 28.9 pg (28.0-34.0); Mean Corpuscular Volume 94.9 fL (80-94); Mean Platelet Volume 10.3 fL (7.4-10.4); Monocytes # 0.7 10^3/uL (0.2-0.9); Monocytes % 5.6 %; Neutrophils # 9.6 10^3/uL (1.8-7.7); Neutrophils % 79.7 %; Nucleated Red Blood Cells % 0 %; Platelet Count 208 10^3/cmm (130-400); Red Cell Distribution Width 12.8 % (12.1-15.1); White Blood Count 12.1 10^3/uL (4.0-10.0)
[2019-07-19 05:59] LABS: Alanine Aminotransferase 32 U/L (0-41); Albumin Level 2.9 g/dL (3.5-5.2); Alkaline Phosphatase 125 IU/L (40-130); Anion Gap 16.8 (5-19); Aspartate Amino Transferase 46 U/L (0-40); Blood Urea Nitrogen 11 mg/dL (8-23); Carbon Dioxide 25 mmol/L (22-29); Chloride 109 mmol/L (98-107); Creatinine Clr Calc Pharmacy 112.5011; Globulin 3.7 g/dL (1.3-4.6); Glomerular Filtration Rate 113.5 mL/min (90-130); Glucose 99 mg/dL (65-115); Osmolality Calculated 300 mOsm/kg (285-295); Potassium 3.8 mmol/L (3.5-5.1); Sodium 147 mmol/L (136-145); Total Bilirubin 0.2 mg/dL (0.15-1.2); Total Protein 6.6 g/dL (6.6-8.7)
[2019-07-19] MEDS: sodium chloride 0.9% (100 ml) 100 ML 30 ML (06:53)
[2019-07-19] MEDS: sodium chloride 0.9% (100 ml) 100 ML 50 ML (06:53)
[2019-07-19 07:46] LABS: Glucose Point of Care 94 mg/dL (70-110)
[2019-07-19 07:46] LABS: Glucose Point of Care 93 mg/dL (70-110)
[2019-07-19] MEDS: metoprolol tartrate 25 mg Tablet PO ×2 (09:45→17:32)
[2019-07-19] MEDS: pantoprazole 40 mg SDV IVP (09:46)
[2019-07-19] MEDS: atorvastatin 40 mg Tablet 20 MG PO (09:46)
[2019-07-19] MEDS: quetiapine 100 mg Tablet PO ×2 (09:46→17:32)
[2019-07-19] MEDS: gabapentin 400 mg Capsule PO ×3 (09:47→19:35)
[2019-07-19] MEDS: lithium carbonate 300 mg Capsule PO ×2 (09:48→17:33)
[2019-07-19] MEDS: OLANZapine 10 mg TABLET 20 MG PO ×2 (09:48→17:32)
[2019-07-19] MEDS: hyDROXYzine 25 mg Capsule 50 MG PO ×3 (09:49→19:35)
[2019-07-19] MEDS: ascorbic acid 500 mg Tablet 1000 MG PO ×2 (09:49→17:32)
[2019-07-19 11:12] LABS: Glucose Point of Care 108 mg/dL (70-110)
--- NOTE | 2019-07-19 11:54 | P.PN_ITS ---
Subjective Subjective: Interval history: No acute events overnight. Patient remains hemodynamically stable, afebrile. Patient has not had any nausea, vomiting, diarrhea. On examination patient is lying comfortably in bed is able to respond with his eyes and moaning. As per nurse patient continues to have oral secretions decreased than yesterday which mostly is not able to clear out on his own but sometime is able to cough up. Vitals/I&O/Wt Last Vital Signs Temp 98.8 F 07/19/19 04:00 Pulse 73 07/19/19 11:27 Resp 16 07/19/19 11:24 BP 136/82 07/19/19 10:00 Pulse Ox 94 07/19/19 11:24 07/18/19 07/19/19 07/19/19 22:59 06:59 14:59 Intake Total 150 / 450 50 / 500 50 / 50 Output Total 1200 / 1200 Balance -1050 / -750 50 / -700 50 / 50 Physical Exam Narrative: EXAM NARRATIVE: General: No acute distress, overweight, following simple commands with his eyes and moaning as responses when spoken to directly. HEENT: PERRLA, pupils bilaterally equal and reactive Chest: Bilateral conductive air sounds present, CVS: S1-S2 regular, no murmurs, no tachycardia, no gallops, no rubs Abdomen: Soft, nontender, no organomegaly, bowel sounds present Neuro: Awake, following simple commands, moves slightly to his baseline. Urinary Catheter Management^: Chavez: Cath Placed During This Visit: yes, but has since been removed by the nurse Reason for Continuing Indwelling Catheter: Decision to DC Catheter Urinary Catheter Date of Insertion: 07/13/19 Urinary Catheter Time of Insertion: 12:01 Date Urinary Catheter Removed: 07/18/19 Time Urinary Catheter Discontinued: 20:31 Data : 07/19/19 04:50 07/19/19 04:50 Micro: Microbiology 07/13/19 08:00 Blood Culture - Final Blood Coagulase negativ staphylococc 07/13/19 11:40 Gram Stain - Final Sputum - Endotracheal Tube Aspirate Sputum Culture - Preliminary 07/13/19 11:55 Sputum Culture - Preliminary Sputum - Endotracheal Tube Aspirate 07/13/19 08:02 Blood Culture - Final Blood NO GROWTH AFTER 5 DAYS A&P Assessment and plan (1) Septic shock: Status: Acute (2) Acute respiratory failure with hypoxia: Status: Acute (3) Pneumonia involving right lung: Status: Acute (4) Septic encephalopathy: Status: Acute (5) Hypertension: Status: Acute (6) Hypothyroidism: Status: Acute (7) Anxiety and depression: Status: Acute (8) Other schizophrenia: Status: Acute (9) Mild intellectual disabilities: Status: Acute (10) Hyperlipidemia: Status: Acute Additional A&P Information Septic shock secondary to right-sided pneumonia most likely aspiration pneumonia: Resolved. Extubated on July 15. Off Levophed since July 15 as well. Continue with normal saline at 100 cc/h. Continue with vancomycin and Zosyn both renally dosed. Repeat cultures have remained negative. 1 set of positive blood cultures from admission most likely contaminant. We will finish a 7-day course. Most likely looking at the CT chest patient has been chronically aspirating most likely secondary to his underlying poor mentation. As per goals of care discussion with state appointed POA and in charge at the senior care where he resides most likely patient would go for a PEG tube placement. I am waiting for confirmation from state appointed POA. For now we will continue n.p.o. except medications. Patient failed outpatient swallow evaluation. Hold Lovenox for possible PEG tube placement tomorrow. Metabolic encephalopathy: Improving. Most likely secondary to combined effects of sepsis, baseline poor mentation due to intellectual disabilities and prolonged sedation with propofol and fentanyl which was going for 4 days. Keep n.p.o. for PEG tube placement. Continue chronic medications like lithium 300 twice daily, olanzapine 20 mg twice daily, Seroquel 100 mg twice daily. Medication confirmed by recent psychiatric note from April 2019. Social issues:-Patient is awarded guardianship of the state phone number for Ms. Dianne Mistry, [phone]. Unfortunately patient has poor baseline mental and functional capacity. Given his poor mentation at baseline patient is most likely chronically aspirating and is at high risk of developing frequent aspiration pneumonias. Had a long discussion with healthcare proxy, Ms. Edmondson mostly in charge at the senior care regarding further goals of care and possible PEG tube placement. We will go ahead and do a surgical consult for PEG tube placement. We will also discuss regarding CODE STATUS with healthcare proxy at that time. Continue chronic home medications like levothyroxine. Hypertension: Blood pressures better now. On examination today more than 140/80. We will start him back on Lopressor but at a lower dose. We will start him on metoprolol 25 mg twice daily. Full code. Lovenox for DVT prophylaxis. For now for possible PEG tube placement tomorrow Tube feedings on hold for now because of poor mentation. Transfer to floor as patient has remained stable. Attestations Medical Necessity Statement*: Chronic aspiration pneumonia, awaiting PEG tube placement. Time Spent in Patient Care: Greater than 35 minutes Coding Level of Care Code Acute Dietary Worker for [facility] Fwd Diagnoses Septic shock A41.9; R65.21 Acute respiratory failure with hypoxia J96.01 Pneumonia involving right lung J18.9 Septic encephalopathy G93.41 Hypertension I10 Hypothyroidism E03.9 Anxiety and depression F41.9; F32.9 Other schizophrenia F20.89 Mild intellectual disabilities F70 Hyperlipidemia E78.5
--- NOTE | 2019-07-19 12:47 | P.CONIM_ITS ---
Providers/Reason For Consult Consulting Physican/Specialty*: Dr. Kaufman Reason for Consult*: Chronic aspiration and feeding difficulty Attending Physician: Abdi Oh MD Primary Care Provider: Eliane Bruce History of Present Illness History of Present Illness Chief Complaint: Most of the information are from Dr. Begum and nursing staff History of present illness: Mr. Deangelo Angel is a 64 year old male with multiple medical comorbidities; hypertension, hypothyroidism, anxiety and depression, schizophrenia, intellectual disability, who presents to [facility] due to altered mental status. Patient has intellectual disabilities, he gets 24-nursing care, he lives in his own home, he gets 24-hour usp care, a HONING MACHINE OPERATOR SEMIAUTOMATIC is usually there daily, and a nurse checks up on him monthly. Patient is awarded guardianship of the state, is a full code. Apparently the patient has been having chronic aspiration and I was consulted to place a PEG tube by Dr. Begum And was seen and evaluated in the ICU Review of Systems General: Reports: ROS unobtainable due to medical condition Meds/Allergies Home Medications and Allergies Home Medications Medication Instructions Recorded Confirmed Last Taken Type ascorbic acid (vitamin C) 1,000 mg 1 gm PO BID tab 04/25/19 07/13/19 07/12/19 History tablet cholecalciferol (vitamin D3) 125 125 mcg PO DAILY 04/25/19 07/13/19 07/12/19 History mcg (5,000 unit) tablet gabapentin 400 mg capsule 400 mg PO TID 04/25/19 07/13/19 07/12/19 History hydroxyzine HCl 50 mg tablet 50 mg PO TID #90 tab 04/25/19 07/13/19 07/12/19 Rx levothyroxine 175 mcg tablet 175 mcg PO DAILY 04/25/19 07/13/19 07/12/19 History lithium carbonate 300 mg tablet 300 mg PO BID #60 tab 04/25/19 07/13/19 07/12/19 Rx methenamine hippurate 1 gram tablet 1 gm PO BID 04/25/19 07/13/19 07/12/19 History metoprolol succinate 50 mg 50 mg PO DAILY 04/25/19 07/13/19 07/12/19 History tablet,extended release 24 hr olanzapine 20 mg tablet 20 mg PO BID #60 tab 0207/13/19 07/12/19 Rx quetiapine 100 mg tablet 100 mg PO BID #60 tab 04/25/19 07/13/19 07/12/19 Rx sennosides 8.6 mg-docusate sodium 2 tab-cap PO BID tab 04/25/19 07/13/19 07/12/19 History 50 mg tablet sertraline 100 mg tablet 200 mg PO DAILY #60 tab 04/25/19 07/13/19 07/12/19 Rx simvastatin 20 mg tablet 20 mg PO DAILY 04/25/19 07/13/19 07/12/19 History tamsulosin 0.4 mg capsule 0.8 mg PO DAILY cap 04/25/19 07/13/19 07/12/19 H istory acetaminophen 650 mg PO Q4H PRN 07/13/19 07/13/19 Unknown History loperamide 2 mg PO Q4H PRN 07/13/19 07/13/19 Unknown History magnesium citrate 150 ml PO DAILY PRN 07/13/19 07/13/19 Unknown History Allergies Allergy/AdvReac Type Severity Reaction Status Date / Time Benzodiazepines Allergy Unknown Verified 07/19/19 13:23 lorazepam Allergy Unknown Verified 07/19/19 13:23 valproic acid Allergy Unknown Verified 07/19/19 13:23 Current Medications Current Medications Generic Name Dose Route Start Last Admin Trade Name Freq PRN Reason Stop Dose Admin Albuterol/Ipratropium 3 ml 07/18/19 16:00 07/19/19 11:24 Duoneb INHALATION 3 ml Q4H.RESPIRATORY AHMET Administration Ascorbic Acid 1,000 mg 07/16/19 18:00 07/19/19 09:49 Vitamin C PO 1,000 mg BID AHMET Administration Atorvastatin Calcium 20 mg 07/17/19 09:00 07/19/19 09:46 Lipitor PO 20 mg DAILY AHMET Administration Enoxaparin Sodium 40 mg 07/14/19 17:00 07/17/19 17:16 Lovenox SUBCUT 40 mg Q24H AHMET Administration Gabapentin 400 mg 07/13/19 15:11 07/19/19 09:47 Neurontin PO 400 mg TID AHMET Administration Hydroxyzine Pamoate 50 mg 07/16/19 15:00 07/19/19 09:49 Vistaril PO 50 mg TID AHMET Administration Piperacillin Sod/Tazobactam 50 mls @ 12.5 mls/hr 07/13/19 16:30 07/19/19 11:32 Sod 3.375 gm/ Sodium Chloride IV 12.5 mls/hr Q8H AHMET Administration Protocol Dexmedetomidine HCl 400 mcg/ 104 mls @ 0 mls/hr 07/16/19 09:30 07/16/19 11:28 Sodium Chloride IV Infused .Q0M AHMET Titration Protocol Per Protocol Vancomycin HCl 1,250 mg/ 250 mls @ 166.667 mls/hr 07/17/19 18:00 07/18/19 16:47 Sodium Chloride IV 166.7 mls/hr Q24H AHMET Administration Protocol Insulin Aspart 0 unit 07/14/19 01:45 07/19/19 11:11 Novolog SUBCUT Not Given Q6H [facility] Protocol Lanolin 1 applic 07/17/19 19:27 07/17/19 20:07 Lanolin Oint TOPICAL 1 applic PRN PRN Administration DRYNESS Levothyroxine Sodium 150 mcg 07/16/19 09:19 07/19/19 06:20 Synthroid PO Not Given DAILY@0600 AHMET [place] Carbonate 300 mg 07/13/19 18:00 07/19/19 09:48 Eskalith PO 300 mg BID AHMET Administration Metoprolol Tartrate 25 mg 07/18/19 18:00 07/19/19 09:45 Lopressor PO 25 mg BID AHMET Administration Non-Formulary Medication 1 gm 07/13/19 18:00 07/18/19 08:04 Methenamine Hippurate PO Not Given BID AHMET Olanzapine 20 mg 07/13/19 18:00 07/19/19 09:48 Zyprexa PO 20 mg BID AHMET Administration Pantoprazole Sodium 40 mg 07/13/19 15:11 07/19/19 09:46 Protonix IVP 40 mg DAILY AHMET Administration Quetiapine Fumarate 100 mg 07/13/19 18:00 07/19/19 09:46 Seroquel PO 100 mg BID AHMET Administration Tamsulosin HCl 0.4 mg 07/17/19 21:00 07/18/19 20:33 Flomax PO 0.4 mg BEDTIME AHMET Administration PFSH Acute PFSH: Medical History Anxiety and depression Hyperlipidemia Hypertension Hypothyroidism Mild intellectual disabilities Other schizophrenia Surgical History History of craniotomy Social History Smoking and tobacco status: unknown if ever smoked Vitals/I&O/Wt Last Vital Signs Temp 98.8 F 07/19/19 04:00 Pulse 81 07/19/19 12:00 Resp 14 07/19/19 12:00 BP 113/70 07/19/19 12:00 Pulse Ox 94 07/19/19 12:00 07/18/19 07/19/19 07/19/19 22:59 06:59 14:59 Intake Total 150 / 450 50 / 500 50 / 50 Output Total 1200 / 1200 Balance -1050 / -750 50 / -700 50 / 50 Physical Exam Narrative: EXAM NARRATIVE: Patient is conscious/disoriented Dobbhoff tube in place BMI 28 Head and neck examination PERRLA no masses no cervical lymphadenopathy no jaundice Cardiac examination audible S1-S2 no murmurs no gallops no arrhythmias Chest is clear bilateral,abscence of Rhonchi or wheezes,no surgical emphysema Abdomen nontender nondistended soft no organomegaly guarding or rigidity/no signs of peritonitis Extremities no cyanosis no clubbing no edema Urinary Catheter Management^: Chavez: Cath Placed During This Visit: yes, but has since been removed by the nurse Reason for Continuing Indwelling Catheter: Decision to DC Catheter Urinary Catheter Date of Insertion: 07/13/19 Urinary Catheter Time of Insertion: 12:01 Date Urinary Catheter Removed: 07/18/19 Time Urinary Catheter Discontinued: 20:31 Data Micro: Micro: Microbiology 07/13/19 08:00 Blood Culture - Fi nal Blood Coagulase negat iv staphylococc 07/13/19 11:40 Gram Stain - Final Sputum - Endotrac heal Tube Aspirate Sputum Culture - P reliminary 07/13/19 11:55 Sputum Culture - P reliminary Sputum - Endotrac heal Tube Aspirate 07/13/19 08:02 Blood Culture - Fi nal Blood NO GROWTH AFTER 5 DAYS A&P Assessment and plan (1) Chronic pulmonary aspiration: After history taking physical examination and reviewing the chart I did discuss in depth and in length with Dr. Kaufman about the need for PEG tube placement, Dr. Kaufman have discussed in length with the patient's state appointed personnel to sign on patient's behalf, that was approved to proceed with PEG tube placement. We will plan to perform the PEG tube in the OR in a more controlled environment. -Patient is awarded guardianship of the [facility] phone number for Ms. Dianne Mistry, [phone]. I did talk with her over the phone and she approved to proceed accordingly Status: Acute Consult Attestations Medical Necessity Statement: Per hospitalist Time Spent in Patient Care: 16 - 35 minutes (>than 50% of time spent in counselling and/or direct pt care on unit) . Coding Level of Care Code Acute Carry In Worker for [facility] Diagnoses Chronic pulmonary aspiration T17.908A
--- NOTE | 2019-07-19 12:47 | P.ANESASSM_ITS ---
Pre-Anesthetic Assessment Pre-Anesthetic Assessment: Height/Weight: Height 1.73 m Weight 83.915 kg Temp Pulse Resp BP Pulse Ox 98.8 F 81 14 113/70 94 07/19/19 04:00 07/19/19 12:00 07/19/19 12:00 07/19/19 12:00 07/19/19 12:00 Preop Diagnosis: Chronic aspiration with feeding difficult Proposed Procedure: PEG tube Familial anesthetic complications: unknown Last intake: NPO > 8 hrs Exam: Pre-Anes Outpt Exam: alert, clear to auscultation bilaterally and regular rate & rhythm Airway: Additional comments: patient unable to particpate Pulmonary: Comments: chronic aspiraiton w/ pneumonia, recently extuabted July 15 Septic shock now off levophed CV/HEM: CV/HEM: HTN Metabolic: Metabolic: Hyperlipidemia and Thyroid Neuropsych: Comments: metabolic encephalopathy Anesthetic Plan: ASA status: 4 Anesthesia: MAC Risk of > 500 ml blood loss (7ml/kg in children): No Meds/Allergies Current Medications: Current Medications Generic Name Dose Route Start Last Admin Trade Name Freq PRN Reason Stop Dose Admin Albuterol/Ipratrop ium 3 ml 07/18/19 16:00 07/19/19 11:24 Duoneb INHALATION 3 ml Q4H.RESPIRATORY S [facility] Administration Ascorbic Acid 1,000 mg 07/16/19 18:00 07/19/19 09:49 Vitamin C PO 1,000 mg BID AHMET Administration Atorvastatin Calci um 20 mg 07/17/19 09:00 07/19/19 09:46 Lipitor PO 20 mg DAILY AHMET Administration Enoxaparin Sodium 40 mg 07/14/19 17:00 07/17/19 17:16 Lovenox SUBCUT 40 mg Q24H AHMET Administration Gabapentin 400 mg 07/13/19 15:11 07/19/19 09:47 Neurontin PO 400 mg TID AHMET Administration Hydroxyzine Pamoat e 50 mg 07/16/19 15:00 07/19/19 09:49 Vistaril PO 50 mg TID AHMET Administration Piperacillin Sod/T azobactam 50 mls @ 12.5 mls /hr 07/13/19 16:30 07/19/19 11:32 Sod 3.375 gm/ So dium Chloride IV 12.5 mls/hr Q8H AHMET Administration Protocol Dexmedetomidine HC l 400 mcg/ 104 mls @ 0 mls/h r 07/16/19 09:30 07/16/19 11:28 Sodium Chloride IV Infused .Q0M AHMET Titration Protocol Per Protocol Vancomycin HCl 1,2 50 mg/ 250 mls @ 166.667 mls/hr 07/17/19 18:00 07/18/19 16:47 Sodium Chloride IV 166.7 mls/hr Q24H AHMET Administration Protocol Insulin Aspart 0 unit 07/14/19 01:45 07/19/19 11:11 Novolog SUBCUT Not Given Q6H AHMET Protocol Lanolin 1 applic 07/17/19 19:27 07/17/19 20:07 Lanolin Oint TOPICAL 1 applic PRN PRN Administration DRYNESS Levothyroxine Sodi um 150 mcg 07/16/19 09:19 07/19/19 06:20 Synthroid PO Not Given DAILY@0600 AHMET [place] Carbonate 300 mg 07/13/19 18:00 07/19/19 09:48 Eskalith PO 300 mg BID AHMET Administration Metoprolol Tartrat e 25 mg 07/18/19 18:00 07/19/19 09:45 Lopressor PO 25 mg BID AHMET Administration Non-Formulary Medi cation 1 gm 07/13/19 18:00 07/18/19 08:04 Methenamine Eduardo urate PO Not Given BID AHMET Olanzapine 20 mg 07/13/19 18:00 07/19/19 09:48 Zyprexa PO 20 mg BID AHMET Administration Pantoprazole Sodiu m 40 mg 07/13/19 15:11 07/19/19 09:46 Protonix IVP 40 mg DAILY AHMET Administration Quetiapine Fumarat e 100 mg 07/13/19 18:00 07/19/19 09:46 Seroquel PO 100 mg BID AHMET Administration Tamsulosin HCl 0.4 mg 07/17/19 21:00 07/18/19 20:33 Flomax PO 0.4 mg BEDTIME AHMET Administration PFSH Anesthesia PFSH: Medical History (Updated 07/13/19 @ 13:06 by Nam Morales MD) Anxiety and depression Hyperlipidemia Hypertension Hypothyroidism Mild intellectual disabilities Other schizophrenia Surgical History (Updated 07/13/19 @ 13:06 by Nam Morales MD) History of craniotomy Social History Smoking and tobacco status: unknown if ever smoked Data Anesthesia CBC & Chem 7: 07/19/19 04:50 07/19/19 04:50 Other Labs: Laboratory Results - last 48 hr 07/17/19 07/17/19 07/18/19 16:54 23:21 04:39 WBC RBC Hgb Hct MCV MCH MCHC RDW Plt Count MPV Neut % (Auto) Lymph % (Auto) [place] % (Auto) Eos % (Auto) Baso % (Auto) Neut # (Auto) Lymph # (Auto) [place] # (Auto) Eos # (Auto) Baso # (Auto) Nucleated RBC % (auto) Nucleated RBCs # Sodium 148 H Potassium 4.1 Chloride 111 H Carbon Dioxide 25 Anion Gap 16.1 BUN 10 Creatinine 0.8 GFR Calculation 97.3 Glucose 110 POC Glucose 122 101 Calculated Osmolality 303 H Calcium 10.2 Total Bilirubin 0.3 AST 71 H ALT 39 Alkaline Phosphatase 144 H Total Protein 6.6 Albumin 3.0 L Globulin 3.6 07/18/19 07/18/19 07/18/19 04:39 05:18 07:23 WBC 13.3 H RBC 3.72 L Hgb 10.5 L Hct 34.8 L MCV 93.5 MCH 28.2 MCHC 30.2 RDW 13.2 Plt Count 179 MPV 10.5 H Neut % (Auto) 82.8 Lymph % (Auto) 7.2 [place] % (Auto) 5.3 Eos % (Auto) 3.8 Baso % (Auto) 0.5 Neut # (Auto) 11.0 H Lymph # (Auto) 1.0 [place] # (Auto) 0.7 Eos # (Auto) 0.5 Baso # (Auto) 0.1 Nucleated RBC % (auto) 0 Nucleated RBCs # 0.0 Sodium Potassium Chloride Carbon Dioxide Anion Gap BUN Creatinine GFR Calculation Glucose POC Glucose 96 99 Calculated Osmolality Calcium Total Bilirubin AST ALT Alkaline Phosphatase Total Protein Albumin Globulin 07/18/19 07/18/19 07/18/19 12:18 17:00 22:45 WBC RBC Hgb Hct MCV MCH MCHC RDW Plt Count MPV Neut % (Auto) Lymph % (Auto) [place] % (Auto) Eos % (Auto) Baso % (Auto) Neut # (Auto) Lymph # (Auto) [place] # (Auto) Eos # (Auto) Baso # (Auto) Nucleated RBC % (auto) Nucleated RBCs # Sodium Potassium Chloride Carbon Dioxide Anion Gap BUN Creatinine GFR Calculation Glucose POC Glucose 112 116 89 Calculated Osmolality Calcium Total Bilirubin AST ALT Alkaline Phosphatase Total Protein Albumin Globulin 07/19/19 07/19/19 07/19/19 04:50 04:50 05:43 WBC 12.1 H RBC 3.70 L Hgb 10.7 L Hct 35.1 L MCV 94.9 H MCH 28.9 MCHC 30.5 RDW 12.8 Plt Count 208 MPV 10.3 Neut % (Auto) 79.7 Lymph % (Auto) 8.9 [place] % (Auto) 5.6 Eos % (Auto) 4.6 Baso % (Auto) 0.5 Neut # (Auto) 9.6 H Lymph # (Auto) 1.1 [place] # (Auto) 0.7 Eos # (Auto) 0.6 Baso # (Auto) 0.1 Nucleated RBC % (auto) 0 Nucleated RBCs # 0.0 Sodium 147 H Potassium 3.8 Chloride 109 H Carbon Dioxide 25 Anion Gap 16.8 BUN 11 Creatinine 0.7 GFR Calculation 113.5 Glucose 99 POC Glucose 94 Calculated Osmolality 300 H Calcium 10.0 Total Bilirubin 0.2 AST 46 H ALT 32 Alkaline Phosphatase 125 Total Protein 6.6 Albumin 2.9 L Globulin 3.7 07/19/19 07/19/19 07:25 11:05 WBC RBC Hgb Hct MCV MCH MCHC RDW Plt Count MPV Neut % (Auto) Lymph % (Auto) [place] % (Auto) Eos % (Auto) Baso % (Auto) Neut # (Auto) Lymph # (Auto) [place] # (Auto) Eos # (Auto) Baso # (Auto) Nucleated RBC % (auto) Nucleated RBCs # Sodium Potassium Chloride Carbon Dioxide Anion Gap BUN Creatinine GFR Calculation Glucose POC Glucose 93 108 Calculated Osmolality Calcium Total Bilirubin AST ALT Alkaline Phosphatase Total Protein Albumin Globulin Micro: Microbiology 07/13/19 08:00 Blood Culture - Final Blood Coagulase negativ staphylococc 07/13/19 11:40 Gram Stain - Final Sputum - Endotracheal Tube Aspirate Sputum Culture - Preliminary 07/13/19 11:55 Sputum Culture - Preliminary Sputum - Endotracheal Tube Aspirate 07/13/19 08:02 Blood Culture - Final Blood NO GROWTH AFTER 5 DAYS Cardiac Studies: No Data to Display
[2019-07-19] MEDS: sodium chloride 0.9% 1,000 ML 30 ML IV (13:29)
--- NOTE | 2019-07-19 13:46 | PC.NURSE ---
TRANSFER TO FLOOR Patient transferred to OR for peg tube placement and then will be taken to [id number]. Report given to GABBI Lopez. All belongings sent with surgery. 1:[address] post surgery.
--- NOTE | 2019-07-19 14:48 | SUR.PHASEI ---
1440 PT AWAKE BUT DOES NOT SPEAK OR FOLLOW COMMANDS, GOOD RESP NOTED PT SX ORALLY EARLIER IN PACU, NO COUGH REFLEX NOTED IV PER CVL TO LT IJ MEDIAL PORT AT KVO RATE, 4X4 TO G TUBE WITH ABD BINDER IN PLACE NO DRAINAGE NOTED PT TO FLOOR PER BED SATS ON RA 97% HR 82, RESP 18, BP 137/81
--- NOTE | 2019-07-19 16:45 | PC.RESP ---
pt. out for surg.
[2019-07-19 17:03] LABS: Glucose Point of Care 84 mg/dL (70-110)
[2019-07-19] MEDS: tamsulosin 0.4 mg Capsule PO (19:35)
[2019-07-19 21:05] LABS: Glucose Point of Care 95 mg/dL (70-110)
[2019-07-20] VITALS (15 sets, daily range): BP systolic 126–167; BP diastolic 76–93; PULSE 71–97; RESP 16–20; TEMP 36.7–37.6; O2SAT 92–98
[2019-07-20] MEDS: glycopyrrolate 0.2 mg/mL SDV 2 mL 0.1 MG IV (03:31)
[2019-07-20] MEDS: piperacillin-tazobactam 3.375 GM in sodium chloride 0.9% (plus) 50 ML IV ×3 (03:31→19:53)
[2019-07-20] MEDS: ipratropium-albuterol 3 mL Neb INHALATION ×4 (03:48→20:23)
[2019-07-20] MEDS: levothyroxine 150 mcg Tablet PO (05:30)
[2019-07-20 05:49] LABS: Glucose Point of Care 87 mg/dL (70-110)
--- NOTE | 2019-07-20 06:39 | PM.PN ---
Subjective Subjective: Interval history: No acute events overnight Vitals/I&O/Wt Last Vital Signs Temp 99.7 F H 07/20/19 04:00 Pulse 97 07/20/19 04:00 Resp 20 H 07/20/19 04:00 BP 165/93 07/20/19 04:00 Pulse Ox 93 07/20/19 04:00 07/19/19 07/19/19 07/20/19 14:59 22:59 06:59 Intake Total 50 / 50 50 / 100 50 / 150 Balance 50 / 50 50 / 100 50 / 150 Physical Exam Narrative: EXAM NARRATIVE: Patient is conscious BMI 28 Head and neck examination PERRLA no masses no cervical lymphadenopathy no jaundice Abdomen nontender nondistended soft no organomegaly guarding or rigidity/no signs of peritonitis PEG tube in place at 7-8 cm skin level without complication Urinary Catheter Management^: Chavez: Cath Placed During This Visit: yes, but has since been removed by the nurse Reason for Continuing Indwelling Catheter: Decision to DC Catheter Urinary Catheter Date of Insertion: 07/13/19 Urinary Catheter Time of Insertion: 12:01 Date Urinary Catheter Removed: 07/18/19 Time Urinary Catheter Discontinued: 20:31 Data : 07/21/19 04:20 07/21/19 04:20 Micro: Microbiology 07/13/19 11:40 Gram Stain - Final Sputum - Endotracheal Tube Aspirate Sputum Culture - Final Nisha albicans 07/13/19 11:55 Sputum Culture - Final Sputum - Endotracheal Tube Aspirate Nisha albicans A&P Assessment and plan (1) Feeding difficulties: Start tube feeds today through PEG tube slowly up to goal Keep abdominal binder all the time Status: Resolved Attestations Medical Necessity Statement*: Per Hospitalist service Time Spent in Patient Care: (>than 50% of time spent in counselling and/or direct pt care on unit). Coding Level of Care Code Acute Optical Store Manager for [facility] Fwd Diagnoses Feeding difficulties R63.3
[2019-07-20] MEDS: metoprolol tartrate 25 mg Tablet PO ×2 (08:19→17:01)
[2019-07-20] MEDS: hyDROXYzine 25 mg Capsule 50 MG PO ×3 (08:19→21:41)
[2019-07-20] MEDS: gabapentin 400 mg Capsule PO ×3 (08:19→21:41)
[2019-07-20] MEDS: atorvastatin 40 mg Tablet 20 MG PO (08:19)
[2019-07-20] MEDS: lithium carbonate 300 mg Capsule PO ×2 (08:19→17:01)
[2019-07-20] MEDS: quetiapine 100 mg Tablet PO ×2 (08:19→17:01)
[2019-07-20] MEDS: OLANZapine 10 mg TABLET 20 MG PO ×2 (08:20→17:01)
[2019-07-20] MEDS: ascorbic acid 500 mg Tablet 1000 MG PO ×2 (08:20→17:01)
[2019-07-20] MEDS: pantoprazole 40 mg SDV IVP (09:15)
[2019-07-20 10:43] LABS: Glucose Point of Care 93 mg/dL (70-110)
[2019-07-20] MEDS: sodium chloride 0.9% 1,000 ML 30 ML IV (11:04)
--- NOTE | 2019-07-20 12:22 | PC.NUTR ---
NUTR TF RECOMMENDATIONS: Jevity on continuous feeds with goal rate of 55 ml/hr providing 1584 kcal (96%), 73 g PRO (87%), and 1065 ml fluid (64%)(%NEEDS). Suggest starting TF at 25 ml/hr increasing by 10 ml Q6H as tolerated till goal rate is met. Suggest H2O flushes of 80 ml to approach fluid needs or per physician. BOLUS FEEDINGS: 5-6 cans daily total through 3 feedings with 2/3 cup H2O flush after each feeding.
--- NOTE | 2019-07-20 13:50 | PC.SOCIAL ---
IMM Updated Page 2 of IMM updated and given to patient. Initialed, dated, and timed and placed back in chart.
--- NOTE | 2019-07-20 14:37 | USCV_ITS ---
Deangelo Angel Age: 64 Gender: M : 1955 Exam Date: 07/20/2019 15:51 Ordering Phys: Abdi Oh MD Technologist: Nadia Rodriguez Exam Location: [facility] [place] Indication: STASIS HISTORY: Bed Stasis and fear of DVT PROCEDURES: Venous duplex imaging was performed in bilateral lower extremities. The following venous structures were evaluated: common femoral vein, profunda vein, proximal portion of the greater saphenous vein, superficial femoral vein, and the popliteal vein. In addition, the posterior tibial and peroneal trunk were evaluated. Serial compression, augmentation maneuvers, and spectral Doppler flow evaluation were performed. FINDINGS: No DVT seen in any vessel examined CONCLUSIONS No evidence of right lower extremity DVT. No evidence of left lower extremity DVT. Carl Rodriguez MD (Electronically Signed) Final Date: 21 Jul 2019 11:55 S
--- NOTE | 2019-07-20 14:40 | P.PN_ITS ---
Subjective Subjective: Interval history: No acute events overnight. Patient has remained hemodynamically stable. In last 24 hours patient had a PEG tube placement. He underwent the procedure well. T-max in 24 hours 99.7 Fahrenheit. As per the nurse patient has not had any episodes of agitation, nausea, vomiting, headache. Vitals/I&O/Wt Last Vital Signs Temp 99.7 F H 07/20/19 11:51 Pulse 78 07/20/19 14:34 Resp 18 07/20/19 14:25 BP 148/79 07/20/19 11:51 Pulse Ox 98 07/20/19 14:25 07/19/19 07/20/19 07/20/19 22:59 06:59 14:59 Intake Total 50 / 100 50 / 150 697.5 / 697.5 Balance 50 / 100 50 / 150 697.5 / 697.5 Physical Exam Narrative: EXAM NARRATIVE: General: No acute distress, overweight, following simple commands with his eyes and moaning as responses when spoken to directly. HEENT: PERRLA, pupils bilaterally equal and reactive Chest: Bilateral conductive air sounds present, CVS: S1-S2 regular, no murmurs, no tachycardia, no gallops, no rubs Abdomen: Soft, nontender, no organomegaly, bowel sounds present, PEG tube site looks healthy Neuro: Awake, following simple commands, moves slightly to his baseline. Urinary Catheter Management^: Chavez: Cath Placed During This Visit: yes, but has since been removed by the nurse Reason for Continuing Indwelling Catheter: Decision to DC Catheter Urinary Catheter Date of Insertion: 07/13/19 Urinary Catheter Time of Insertion: 12:01 Date Urinary Catheter Removed: 07/18/19 Time Urinary Catheter Discontinued: 20:31 Data : 07/19/19 04:50 07/19/19 04:50 Micro: Microbiology 07/13/19 11:40 Gram Stain - Final Sputum - Endotracheal Tube Aspirate Sputum Culture - Final Nisha albicans 07/13/19 11:55 Sputum Culture - Final Sputum - Endotracheal Tube Aspirate Nisha albicans A&P Assessment and plan (1) Septic shock: Status: Acute (2) Acute respiratory failure with hypoxia: Status: Acute (3) Pneumonia involving right lung: Status: Acute (4) Septic encephalopathy: Status: Acute (5) Hypertension: Status: Acute (6) Hypothyroidism: Status: Acute (7) Anxiety and depression: Status: Acute (8) Other schizophrenia: Status: Acute (9) Mild intellectual disabilities: Status: Acute (10) Hyperlipidemia: Status: Acute (11) S/P percutaneous endoscopic gastrostomy (PEG) tube placement: Status: Acute Additional A&P Information Septic shock secondary to right-sided pneumonia most likely aspiration pneumonia: Resolved. Extubated on July 15. Off Levophed since July 15 as well. Discontinue IV fluids. Patient's mean arterial pressures have been well maintained. Blood cultures have remained negative. Sputum culture today showing Nisha albicans. Continue vancomycin and Zosyn for 24 more hours to finish a course of 48 hours post procedure. Start patient on fluconazole 200 through PEG tube to finish a course of [address] scan was concerning for chronic aspiration most likely due to intellectual disability and schizophrenia. After confirmation with patient's state appointed POA and and Debo who is the in charge of his nursing home it was agreed that patient would do fine with PEG tube placement. Patient underwent PEG tube placement on July 18. Start patient on tube feeds at 20 cc/h increasing 10 cc every 4 hours with goal rate of 50 cc with 100 cc free water for pushes every 4 hours. Metabolic encephalopathy: Improving. Most likely secondary to combined effects of sepsis, baseline poor mentation due to intellectual disabilities and prolonged sedation with propofol and fentanyl which was going for 4 days. Continue chronic medications like lithium 300 twice daily, olanzapine 20 mg twice daily, Seroquel 100 mg twice daily. Medication confirmed by recent psychiatric note from April 2019. Social issues:-Patient is awarded guardianship of the state phone number for Ms. Dianne Mistry, [phone]. We will also discuss regarding CODE STATUS with healthcare proxy at that time. Continue chronic home medications like levothyroxine. Hypertension: Blood pressures better now. On examination today more than 140/80. We will start him back on Lopressor but at a lower dose. We will start him on metoprolol 25 mg twice daily. Full code. Lovenox for DVT prophylaxis. PEG tube feeds If patient continues to do well can discharge tomorrow. Attestations Medical Necessity Statement*: Chronic aspiration, post PEG tube placement Time Spent in Patient Care: Greater than 35 minutes Coding Level of Care Code Acute Advertisement Distributor for [facility] Fwd Diagnoses Septic shock A41.9; R65.21 Acute respiratory failure with hypoxia J96.01 Pneumonia involving right lung J18.9 Septic encephalopathy G93.41 Hypertension I10 Hypothyroidism E03.9 Anxiety and depression F41.9; F32.9 Other schizophrenia F20.89 Mild intellectual disabilities F70 Hyperlipidemia E78.5 S/P percutaneous endoscopic gastrostomy (PEG) tube placement Z93.1
[2019-07-20 15:48] LABS: Basophils # 0.1 10^3/uL (0.0-0.1); Basophils % 0.8 %; Eosinophils # 0.4 10^3/uL (0.0-0.8); Eosinophils % 4.6 %; Hematocrit 36.2 % (42.0-52.0); Hemoglobin 11.3 g/dL (11.7-16.6); Lymphocytes # 1.5 10^3/uL (0.8-4.8); Lymphocytes % 16.1 %; Mean Corpuscular HGB Conc 31.2 g/dL (30.0-36.0); Mean Corpuscular Volume 92.8 fL (80-94); Mean Platelet Volume 10.1 fL (7.4-10.4); Monocytes # 0.7 10^3/uL (0.2-0.9); Monocytes % 7.2 %; Neutrophils # 6.5 10^3/uL (1.8-7.7); Neutrophils % 70.4 %; Nucleated Red Blood Cells % 0 %; Platelet Count 299 10^3/cmm (130-400); Red Cell Distribution Width 12.7 % (12.1-15.1); White Blood Count 9.3 10^3/uL (4.0-10.0)
[2019-07-20 16:54] LABS: Glucose Point of Care 88 mg/dL (70-110)
[2019-07-20] MEDS: enoxaparin 40 mg/0.4 mL Syringe SUBCUT (17:01)
[2019-07-20 18:06] LABS: Vancomycin Trough 8.3 ug/mL (10-15)
[2019-07-20] MEDS: tamsulosin 0.4 mg Capsule PO (21:41)
[2019-07-21] VITALS (12 sets, daily range): BP systolic 114–137; BP diastolic 67–83; PULSE 67–86; RESP 17–20; TEMP 36.3–37.1; O2SAT 93–98
[2019-07-21 03:08] LABS: Glucose Point of Care 125 mg/dL (70-110)
[2019-07-21] MEDS: ipratropium-albuterol 3 mL Neb INHALATION ×5 (04:30→11:34)
[2019-07-21 05:06] LABS: Glucose Point of Care 151 mg/dL (70-110)
[2019-07-21 05:22] LABS: Basophils # 0.1 10^3/uL (0.0-0.1); Basophils % 0.8 %; Eosinophils # 0.5 10^3/uL (0.0-0.8); Eosinophils % 6.1 %; Hematocrit 35.5 % (42.0-52.0); Hemoglobin 11.2 g/dL (11.7-16.6); Lymphocytes # 1.2 10^3/uL (0.8-4.8); Lymphocytes % 13.7 %; Mean Corpuscular HGB Conc 31.5 g/dL (30.0-36.0); Mean Corpuscular Hemoglobin 28.1 pg (28.0-34.0); Mean Corpuscular Volume 89.2 fL (80-94); Mean Platelet Volume 10.4 fL (7.4-10.4); Monocytes # 0.5 10^3/uL (0.2-0.9); Monocytes % 6.1 %; Neutrophils # 6.4 10^3/uL (1.8-7.7); Neutrophils % 72.4 %; Nucleated Red Blood Cells % 0 %; Platelet Count 265 10^3/cmm (130-400); Red Blood Count 3.98 10^6/uL (4.1-5.3); Red Cell Distribution Width 12.6 % (12.1-15.1); White Blood Count 8.9 10^3/uL (4.0-10.0)
[2019-07-21 05:46] LABS: Alanine Aminotransferase 22 U/L (0-41); Albumin Level 3.1 g/dL (3.5-5.2); Alkaline Phosphatase 99 IU/L (40-130); Anion Gap 14.4 (5-19); Aspartate Amino Transferase 27 U/L (0-40); Blood Urea Nitrogen 11 mg/dL (8-23); Calcium 9.6 mg/dL (8.5-10.5); Carbon Dioxide 27 mmol/L (22-29); Chloride 107 mmol/L (98-107); Creatinine Clr Calc Pharmacy 112.5011; Globulin 2.9 g/dL (1.3-4.6); Glomerular Filtration Rate 113.5 mL/min (90-130); Glucose 171 mg/dL (65-115); Osmolality Calculated 300 mOsm/kg (285-295); Potassium 3.4 mmol/L (3.5-5.1); Sodium 145 mmol/L (136-145); Total Bilirubin 0.2 mg/dL (0.15-1.2)
[2019-07-21] MEDS: piperacillin-tazobactam 3.375 GM in sodium chloride 0.9% (plus) 50 ML IV ×2 (05:51→12:17)
[2019-07-21] MEDS: levothyroxine 150 mcg Tablet PO (05:53)
[2019-07-21] MEDS: vancomycin 1,000 MG in sodium chloride 0.9% 250 ML 166.7 MG IV (09:17)
[2019-07-21] MEDS: pantoprazole 40 mg SDV IVP (09:18)
[2019-07-21] MEDS: OLANZapine 10 mg TABLET 20 MG PO (09:18)
[2019-07-21] MEDS: metoprolol tartrate 25 mg Tablet PO (09:18)
[2019-07-21] MEDS: quetiapine 100 mg Tablet PO (09:19)
[2019-07-21] MEDS: ascorbic acid 500 mg Tablet 1000 MG PO (09:19)
[2019-07-21] MEDS: lithium carbonate 300 mg Capsule PO (09:19)
[2019-07-21] MEDS: gabapentin 400 mg Capsule PO ×2 (09:19→15:55)
[2019-07-21] MEDS: atorvastatin 40 mg Tablet 20 MG PO (09:19)
[2019-07-21] MEDS: hyDROXYzine 25 mg Capsule 50 MG PO ×2 (09:19→15:55)
[2019-07-21 10:58] LABS: Glucose Point of Care 172 mg/dL (70-110)
--- NOTE | 2019-07-21 11:46 | PM.DCS ---
Discharge Providers Date of Admission: 07/13/19 11:48 Date of Discharge: July 21, 2019 Attending Provider at Admission: Nam Morales MD Attending Provider at Discharge: Abdi Oh MD Consults: Surgery: Dr. Li Primary Care Provider: Eliane Bruce Diagnoses at Discharge Discharge Diagnosis (1) Feeding difficulties: Status: Resolved (2) S/P percutaneous endoscopic gastrostomy (PEG) tube placement: Status: Acute (3) Septic shock: Status: Acute (4) Pneumonia involving right lung: Status: Acute (5) Acute respiratory failure with hypoxia: Status: Acute (6) Septic encephalopathy: Status: Acute (7) Hyperlipidemia: Status: Acute (8) Anxiety and depression: Status: Acute (9) Hypertension: Status: Acute (10) Hypothyroidism: Status: Acute (11) Respiratory failure: Status: Acute (12) Other schizophrenia: Status: Acute (13) Mild intellectual disabilities: Status: Acute Reason for Visit Reason for Visit: Reason For Visit: AMS Hospital Course Discharge Summary: Deangelo Angel is a 64 year old male with a past medical history of hypertension, hypothyroidism, anxiety and depression, schizophrenia, intellectual disability, who presented to the [facility] ER on July 12 due to altered mental status. Currently patient is intubated, sedated and most of the history was obtained by ER physician, ER staff, and patient's next of kin Dianne Mistry. Patient has intellectual disabilities, he gets 24-nursing care, he lives in his own home, he gets 24-hour chcf care, a MANAGER CATEGORY is usually there daily, and a nurse checks up on him monthly. Patient is awarded guardianship of the state, is a full code. At baseline patient is alert and oriented x2, does have behavioral problems, does have agitation, does have anxiety, does see things that are not there, to speak of things that are not there, requires help with activities daily living, cannot carry on conversations, but can appear confused at times but that is baseline for him. According to Dianne, for the last few days patient has been complaining of a cough, sinus symptoms, his lungs sounded clear a few days ago. Will for the last 24 hours his cough, sinus symptoms worsen, had intermittent shortness of breath, but lungs sounded clear. No fevers, blood pressure was within normal limits. But over the next few hours patient became much more confused, much more combative, much more agitated, much less responsive which is not normal for him. In ER patient was found to have right-sided upper middle and lower pneumonia with right lumbar 35,000, patient did not tolerate BiPAP well so was intubated to protect his airway. Patient was admitted to the ICU on broad-spectrum antibiotics. He responded gradually to the antibiotics and white counts went trending down. Patient required less mechanical ventilator support but was difficult to extubate because of episodes of agitation and combativeness. Patient was gradually extubated on July 15. COVID-19 was checked and was negative. CT chest was done which was concerning for aspiration pneumonia. Sputum culture were negative for any bacterial growth but were concerning for Nisha albicans. Blood cultures remain negative. Given his baseline mentation it is possible that patient has been aspirating chronically which is consistent with extensive right-sided pneumonia. Goals of care and further plan for nutrition were discussed with patient's state appointed guardian and in charge at his skilled nursing Ms. Edmondson. They both agreed and wanted patient to have a PEG tube placement to give him a chance of returning back to his baseline while he continues to have nutritional support and preventing aspiration. Surgery was consulted and patient underwent PEG insertion on July 18. He tolerated the procedure well. Postprocedure tube feeds were started and has reached a goal of 50 cc/h with free water flushes 100 cc/h every 4 hourly. Patient is been discharged back to skilled nursing with advice to continue using abdominal binder to prevent from patient pulling on the PEG tube. He is advised to take fluconazole liquid through PEG tube for next 5 days. He is been discharged in hemodynamically stable condition. Physical Exam Narrative: EXAM NARRATIVE: General: No acute distress, overweight, following simple commands with his eyes and moaning as responses when spoken to directly. HEENT: PERRLA, pupils bilaterally equal and reactive Chest: Bilateral conductive air sounds present, CVS: S1-S2 regular, no murmurs, no tachycardia, no gallops, no rubs Abdomen: Soft, nontender, no organomegaly, bowel sounds present, PEG tube site looks healthy Neuro: Awake, following simple commands, moves slightly to his baseline. Urinary Catheter Management^: Chavez: Cath Placed During This Visit: yes, but has since been removed by the nurse Reason for Continuing Indwelling Catheter: Decision to DC Catheter Urinary Catheter Date of Insertion: 07/13/19 Urinary Catheter Time of Insertion: 12:01 Date Urinary Catheter Removed: 07/18/19 Time Urinary Catheter Discontinued: 20:31 Discharge Data Data Completed and Pending: Completed Studies During Hospitalization Category Date Time Status CT chest wo con 7 1250 Stat Cat Scan 07/16/19 20:[address] head wo con* 7 0450 Stat Cat Scan 07/13/19 07:[address] head wo con* 7 0450 Stat Cat Scan 07/16/19 20:23 Completed CXRP [XR chest 1V portable 11234] R outine Exams 07/13/19 16:05 Completed XR chest 1V jeannie ble [id number] Routine Exams 07/14/19 07:00 Completed XR chest 1V jeannie ble [id number] Routine Exams 07/15/19 07:00 Completed XR chest 1V jeannie ble [id number] Routine Exams 07/16/19 07:00 Completed XR chest 1V jeannie ble [id number] Stat Exams 07/13/19 07:52 Completed XR chest 1V jeannie ble [id number] Stat Exams 07/14/19 18:31 Completed Pending at discharge Category [place] [id number] Routin e Ultrasound 07/20/19 14:37 Taken Labs from last 24 hours 07/21/19 07/21/19 07/21/19 10:48 04:35 04:20 WBC RBC Hgb Hct MCV MCH MCHC RDW Plt Count MPV Neut % (Auto) Lymph % (Auto) Rains % (Auto) Eos % (Auto) Baso % (Auto) Neut # (Auto) Lymph # (Auto) Rains # (Auto) Eos # (Auto) Baso # (Auto) Nucleated RBC % (a uto) Nucleated RBCs # Sodium 145 Potassium 3.4 L Chloride 107 Carbon Dioxide 27 Anion Gap 14.4 BUN 11 Creatinine 0.7 GFR Calculation 113.5 Glucose 171 H POC Glucose 172 151 Calculated Osmolal ity 300 H Calcium 9.6 Total Bilirubin 0.2 AST 27 ALT 22 Alkaline Phosphata se 99 Total Protein 6.0 L Albumin 3.1 L Globulin 2.9 Vancomycin Trough 07/21/19 07/20/19 07/20/19 04:20 23:42 17:32 WBC 8.9 RBC 3.98 L Hgb 11.2 L Hct 35.5 L MCV 89.2 MCH 28.1 MCHC 31.5 RDW 12.6 Plt Count 265 MPV 10.4 Neut % (Auto) 72.4 Lymph % (Auto) 13.7 Rains % (Auto) 6.1 Eos % (Auto) 6.1 Baso % (Auto) 0.8 Neut # (Auto) 6.4 Lymph # (Auto) 1.2 Rains # (Auto) 0.5 Eos # (Auto) 0.5 Baso # (Auto) 0.1 Nucleated RBC % (a uto) 0 Nucleated RBCs # 0.0 Sodium Potassium Chloride Carbon Dioxide Anion Gap BUN Creatinine GFR Calculation Glucose POC Glucose 125 Calculated Osmolal ity Calcium Total Bilirubin AST ALT Alkaline Phosphata se Total Protein Albumin Globulin Vancomycin Trough 8.3 L 07/20/19 07/20/19 16:44 14:58 WBC 9.3 RBC 3.90 L Hgb 11.3 L Hct 36.2 L MCV 92.8 MCH 29.0 MCHC 31.2 RDW 12.7 Plt Count 299 MPV 10.1 Neut % (Auto) 70.4 Lymph % (Auto) 16.1 Rains % (Auto) 7.2 Eos % (Auto) 4.6 Baso % (Auto) 0.8 Neut # (Auto) 6.5 Lymph # (Auto) 1.5 Rains # (Auto) 0.7 Eos # (Auto) 0.4 Baso # (Auto) 0.1 Nucleated RBC % (a uto) 0 Nucleated RBCs # 0.0 Sodium Potassium Chloride Carbon Dioxide Anion Gap BUN Creatinine GFR Calculation Glucose POC Glucose 88 Calculated Osmolal ity Calcium Total Bilirubin AST ALT Alkaline Phosphata se Total Protein Albumin Globulin Vancomycin Trough Vitals: Last Vital Signs Temp 98.7 F 07/21/19 07:19 Pulse 67 07/21/19 11:44 Resp 18 07/21/19 11:40 BP 122/80 07/21/19 07:19 Pulse Ox 93 07/21/19 11:40 Discharge Plan Discharge Patient Disposition: Xfer LTC Condition: Stable Prescriptions: New fluconazole 40 mg/mL Suspension For Reconstitution 200 mg PO DAILY 5 Days Qty: 30 RF: 0 glycopyrrolate 1 mg tablet 1 mg PO BID PRN (Reason: secretions) Qty: 10 RF: 0 Continued gabapentin 400 mg capsule 400 mg PO TID RF: 0 levothyroxine [Levo-T] 175 mcg tablet 175 mcg PO DAILY RF: 0 methenamine hippurate 1 gram tablet 1 gm PO BID RF: 0 metoprolol succinate 50 mg tablet extended release 24 hr 50 mg PO DAILY RF: 0 simvastatin 20 mg tablet 20 mg PO DAILY RF: 0 sennosides-docusate sodium [Senna Plus] 8.6-50 mg tablet 2 tab-cap PO BID RF: 0 tamsulosin 0.4 mg capsule 0.8 mg PO DAILY RF: 0 ascorbic acid (vitamin C) 1,000 mg tablet 1 gm PO BID RF: 0 cholecalciferol (vitamin D3) [Vitamin D3] 125 mcg (5,000 unit) tablet 125 mcg PO DAILY RF: 0 sertraline 100 mg tablet 200 mg PO DAILY Qty: 60 RF: 3 quetiapine [Seroquel] 100 mg tablet 100 mg PO BID Qty: 60 RF: 3 olanzapine 20 mg tablet 20 mg PO BID Qty: 60 RF: 3 lithium carbonate 300 mg tablet 300 mg PO BID Qty: 60 RF: 3 hydroxyzine HCl 50 mg tablet 50 mg PO TID Qty: 90 RF: 2 acetaminophen 325 mg Tablet 650 mg PO Q4H PRN (Reason: Pain) RF: 0 loperamide 2 mg Capsule 2 mg PO Q4H PRN (Reason: Diarrhea) RF: 0 magnesium citrate Solution 150 ml PO DAILY PRN (Reason: Constipation) RF: 0 Discharge Orders: Discharge Order (Routine); Ordered 07/21/19 Ordered By: Abdi Oh Referrals: Eliane Bruce PA [Primary Care Provider] - 7-10 days Discharge Diet: Start new tube feeds as directed Discharge Activity: Resume usual activity and Increase activity as tolerated Patient Instructions: Fluconazole (By mouth), Percutaneous Endoscopic Gastrostomy Insertion (DC), Aspiration Pneumonia (DC), Hypotension (DC) Activity Restrictions/Additional Instructions: Continue tube feeds with Ensure Plus at the PCPs follow-up with free water flushes at 100 cc every 4 hours. Please use glycopyrrolate as needed twice daily for secretions. Please continue using abdominal binder to prevent patient from pulling onto the PEG tube. Please repeat labs including CBC and CMP in 1 week. Discharge Attestations Time Spent in Discharge Care*: greater than 30 min Specific Discharge Activities: Specific discharge activities: educating and/or supporting family/caregiver, discussing with pcp/other providers, discussing with counseling case manager/social workers/dc planners, documenting/other paperwork and evaluating patient/reviewing data Status at Discharge: Cognitive status at discharge: severely impaired cognition, Behavioral status at discharge: cooperative, Functional status at discharge: other assisted ambulation Overall status at discharge: patient is progressing back to baseline Quality Metrics Clinical Quality Measures During this hospital stay, did patient experience: None Coding Level of Care Code Acute Pharmaceutical Assistant for [facility] Fwd Diagnoses Feeding difficulties R63.3 S/P percutaneous endoscopic gastrostomy (PEG) tube placement Z93.1 Septic shock A41.9; R65.21 Pneumonia involving right lung J18.9 Acute respiratory failure with hypoxia J96.01 Septic encephalopathy G93.41 Hyperlipidemia E78.5 Anxiety and depression F41.9; F32.9 Hypertension I10 Hypothyroidism E03.9 Respiratory failure J96.90 Other schizophrenia F20.89 Mild intellectual disabilities F70
--- NOTE | 2019-07-21 11:47 | PC.CHAP ---
Pastoral Care Encounter/Spiritual Assessment Type of Contact [] Declined orthopedic technician visit [] Patient/Family/Request visit [] Outpatient visit [] Follow-up visit [] Physician referral [] Code/Alert [x] Routine visit [] Staff referral [] Actively dying [] Patient sleeping [] Family support [] [] Out of room [] Palliative care [] [] Receiving care in room [] Pre-surgical visit [] Trauma [] Long length of stay [] ICU visit [] Other: Relational/Emotional Strength [] Patient feels connected with others/family/visitors/staff [] Distress [] Loneliness/isolation [] Abandonment Spirituality of Patient [] Person of Snow [] Attends Restorationism of their Snow [] Believes in Prayer [] Reads Bible or Druze materials [] There are Spiritual issues to be addressed Flare Man Interventions [] Prayer [] Active listening [] Non-anxious presence [] Spiritual/emotional support [] Crisis/trauma care [] Spiritual counseling [] Bereavement support [] Provided bereavement packet [] Provided Bible/devotional materials [] Provided toy/stuffed animal, coloring book to patient or family member [] Provided Communion [] Anointing/[place] [] Salvation [] Completed spiritual assessment [] Other: Impact on Illness or Injury [] Angry [] Fearful [] Anxious [] Often cries [] Exhaustion [] Unable to work [] Unable to attend scientologist [] Unable to walk/stand [] Unable to read [] Unable to drive [] Unable to eat/drink [] Unable to sleep [] Unable to be with family [] Patient intubated [x] Other: Summary Patient was in a semi conscious state, prayer provided. Time spent with patient 5 minutes
--- NOTE | 2019-07-21 15:40 | PM.PN ---
Subjective Subjective: Interval history: Patient overall continues to tolerate tube feeds No acute surgical events overnight Vitals/I&O/Wt Last Vital Signs Temp 97.3 F L 07/21/19 15:28 Pulse 71 07/21/19 15:28 Resp 18 07/21/19 15:28 BP 137/76 07/21/19 15:28 Pulse Ox 98 07/21/19 15:28 07/21/19 07/21/19 07/21/19 06:59 14:59 22:59 Intake Total 50 / 797.5 50 / 50 Balance 50 / 797.5 50 / 50 Physical Exam Narrative: EXAM NARRATIVE: Patient is conscious BMI 28 Abdomen nontender nondistended soft no organomegaly guarding or rigidity/no signs of peritonitis PEG tube at 7 cm skin Urinary Catheter Management^: Chavez: Cath Placed During This Visit: yes, but has since been removed by the nurse Reason for Continuing Indwelling Catheter: Decision to DC Catheter Urinary Catheter Date of Insertion: 07/13/19 Urinary Catheter Time of Insertion: 12:01 Date Urinary Catheter Removed: 07/18/19 Time Urinary Catheter Discontinued: 20:31 Data : 07/21/19 04:20 07/21/19 04:20 Micro: Microbiology 07/16/19 11:11 Blood Culture - Final Blood NO GROWTH AFTER 5 DAYS 07/16/19 11:10 Blood Culture - Final Blood NO GROWTH AFTER 5 DAYS A&P Assessment and plan (1) Feeding difficulties: Continue tube feeds per dietitian recommendation Keep abdominal binder all the time Thank you for consulting general surgery to participate taking care of Mr. Angel Status: Resolved Attestations Medical Necessity Statement*: Medical necessity care is expected to cross 2 midnights Time Spent in Patient Care: (>than 50% of time spent in counselling and/or direct pt care on unit). Coding Level of Care Code Acute Environmental Health Nurse for [facility] Fwd Diagnoses Feeding difficulties R63.3
[2019-07-21] MEDS: sodium chloride 0.9% 1,000 ML 30 ML IV (15:55)
[2019-07-21 16:42] LABS: Glucose Point of Care 164 mg/dL (70-110)
== END 2019-07-21 17:00 | DRG 871 ==
LOC: ER 11:07 → ICU 11:49 → MEDSURG 07-19 14:20
PROVIDERS: Family Medicine; Surgery; Admitting Provider Family Medicine; PCP Physician Assistant; Visit Provider Student in an Organized Health Care Education/Training Program
PROC: 0DH63UZ Insertion of Feeding Device into Stomach, Percutaneous Approach (ICD-10-PCS; CPT 43246; principal; 2019-07-19 13:45)
DX: A41.9 Sepsis, unspecified organism (principal); R65.21 Severe sepsis with septic shock; J69.0 Pneumonitis due to inhalation of food and vomit; J96.01 Acute respiratory failure with hypoxia; G93.41 Metabolic encephalopathy; R63.3 Feeding difficulties; K29.70 Gastritis, unspecified, without bleeding; I10 Essential (primary) hypertension; E03.9 Hypothyroidism, unspecified; F41.8 Other specified anxiety disorders; F20.9 Schizophrenia, unspecified; F70 Mild intellectual disabilities; Z20.828 Contact with and (suspected) exposure to other viral communicable diseases; E78.5 Hyperlipidemia, unspecified; I95.9 Hypotension, unspecified
CPT/HCPCS: 12345; 31500; 36415; 36416; 36592; 36600; 43246; 51702; 70450; 71045; 71250; 80051; 80053; 80202; 81001; 82550; 82803; 82810; 82962; 83036; 83540; 83550; 83605; 83690; 83735; 83880; 83986; 84100; 84145; 84443; 84484; 85025; 85610; 86403; 87040; 87070; 87205; 87635; 87641; 87804; 92526; 92610; 93005; 93970; 94002; 94003; 94640; 94660; 94799; 96372; 96375; 99284; C1751; C9113; J0330; J1650; J1815; J1956; J2001; J2543; J2704; J3010; J3370; J3490; J7030; J7050

== ENCOUNTER → 2019-08-15 07:35 | Outpatient (BNVA) | payer MEDICARE, MEDICAID, SELFPAY | PROVIDERS: PCP Physician Assistant; Visit Provider Nurse Practitioner | DX: F70 Mild intellectual disabilities (principal); F20.89 Other schizophrenia | CPT/HCPCS: 99213 ==

== ENCOUNTER 2019-08-17 10:52 | Outpatient (CLI) | payer MEDICARE, MEDICAID, SELFPAY ==
--- NOTE | 2019-08-17 10:59 | FL_ITS ---
WS: [id number] FL barium swallow modifd [id number] REASON FOR EXAM: Other dysphagia FLUOROSCOPY TIME: 2.0 minutes FINDINGS: Fluoroscopy was performed for speech pathology. There is noted aspiration thin liquids plea se see her workup for details. FL/FL barium swallow modifd [id number] IMPRESSION: Fluoroscopy performed for speech pathology.
== END 2019-08-17 10:53 | disposition home or self-care (01) ==
LOC: RAD 10:57
PROVIDERS: PCP Physician Assistant; Visit Provider Physician Assistant
DX: R13.19 Other dysphagia (principal)
CPT/HCPCS: 74230; 92611

== ENCOUNTER → 2019-11-14 08:11 | Outpatient (BNVA) | payer MEDICARE, MEDICAID, SELFPAY | PROVIDERS: PCP Physician Assistant; Visit Provider Nurse Practitioner | DX: F70 Mild intellectual disabilities (principal); F20.89 Other schizophrenia; Z79.899 Other long term (current) drug therapy; F43.12 Post-traumatic stress disorder, chronic | CPT/HCPCS: 99213 ==

== ENCOUNTER 2019-12-20 09:05 | Outpatient (CLI) | payer MEDICARE, MEDICAID, SELFPAY ==
[2019-12-20 09:58] LABS: Estmated Average Glucose 100; Hemoglobin A1C 5.1 % (4.0-6.0)
[2019-12-20 10:01] LABS: Chol HDL Ratio 3.42 mg/dL (1.0-5.00); Cholesterol 154 mg/dL (0-200); HDL Cholesterol 45 mg/dL (60-100); LDL Cholesterol Calculated 93 mg/dL (50-129); LDL HDL Ratio 2.07 RATIO (0.00-3.22); Triglycerides 80 mg/dL (0-150)
== END 2019-12-20 09:06 | disposition home or self-care (01) ==
PROVIDERS: PCP Physician Assistant; Visit Provider Nurse Practitioner
DX: Z79.899 Other long term (current) drug therapy (principal)
CPT/HCPCS: 80061; 80178; 83036

== ENCOUNTER → 2020-03-06 07:48 | Outpatient (BNVA) | payer MEDICARE, MEDICAID, SELFPAY | PROVIDERS: PCP Physician Assistant; Visit Provider Nurse Practitioner | DX: F70 Mild intellectual disabilities (principal); F20.89 Other schizophrenia; Z79.899 Other long term (current) drug therapy | CPT/HCPCS: 99213 ==

== ENCOUNTER 2020-07-10 11:07 | Day surgery (SDC) | payer MEDICARE, MEDICAID, SELFPAY ==
--- NOTE | 2020-07-10 12:24 | P.ANESASSM_ITS ---
Pre-Anesthetic Assessment Pre-Anesthetic Assessment: Height/Weight: Height 1.73 m Preop Diagnosis: Feeding tube difficulties Proposed Procedure: Operation Date: 07/10/20 11:00 Proposed Procedures p PEG Tube Insertion(Not Applicable) - Ketan Miller MD Operation Date: 07/10/20 11:40 Proposed Procedures p Gastric Tube Exchange 29563 K94.23(Not Applicable) - Ketan Miller MD Familial anesthetic complications: None Was Beta Elsa taken within 24 hours: N/A Was Clonidine taken within 24 hours: N/A Last intake: NPO > 8 hrs Social: Social History: No alcohol and No tobacco Exam: Pre-Anes Outpt Exam: alert, oriented x 3, clear to auscultation bilaterally and regular rate & rhythm Airway: Cervical ROM: WNL Dentition: Other (no teeth) Pulmonary: Comments: hx aspiration pneumonia, resulting in sepsis and need for peg tube. This occured over 1 year ago, but patient required PEG tube d/t unsafe feeding habits. He consumes food very quicklyk CV/HEM: CV/HEM: HTN Metabolic: Metabolic: Thyroid Neuropsych: Neuropsych: TIA Comments: hx of falls that resulted in subdural hematoma years ago, requiring surgical evacuation Anesthetic Plan: ASA status: 3 Anesthesia: MAC Risk of > 500 ml blood loss (7ml/kg in children): No PFSH Anesthesia PFSH: Medical History Anxiety and depression Hyperlipidemia Hypertension Hypothyroidism Mild intellectual disabilities Other schizophrenia Surgical History History of craniotomy S/P percutaneous endoscopic gastrostomy (PEG) tube placement Social History Smoking and tobacco status: unknown if ever smoked Data Anesthesia Cardiac Studies: 2 No Data to Display
[2020-07-10 12:42] VITALS: BP 150/88; PULSE 53; RESP 16; TEMP 36.6; O2SAT 98; BMI 27.3
--- NOTE | 2020-07-10 12:48 | W.PM.OPSUD ---
Surgery/Procedure H&P Update DATE OF PROCEDURE: July 10, 2020 DATE H&P PERFORMED: 07/04/20 H&P UPDATE INFORMATION: I have reviewed H&P completed within last 30 days, I have examined patient prior to procedure and No changes to prior documentation PREOP DIAGNOSIS: Feeding tube difficulties PRIMARY INDICATION FOR PROCEDURE: The same PLANNED PROCEDURE: Operation Date: 07/10/20 11:00 Proposed Procedures p PEG Tube Insertion(Not Applicable) - Ketan Miller MD Operation Date: 07/10/20 11:40 Proposed Procedures p Gastric Tube Exchange 63273 K94.23(Not Applicable) - Ketan Miller MD
[2020-07-10] MEDS: sodium chloride 0.9% 1,000 ML 30 ML IV (12:50)
[2020-07-10 13:07] VITALS: BP 141/89; PULSE 57; RESP 12; TEMP 36.2; O2SAT 98
--- NOTE | 2020-07-10 13:07 | P.PCN_ITS ---
Outpatient Procedures Feeding Tube Replacement: Type of tube: gastrostomy (Removed bedside by me without compliactions) Insertion site prior to procedure: clean Tube used for reinsertion: other (Shiraz's Button ) Portuguese Tube Size (F): 20 Balloon size (ml): 6 Verification of placement: other (Aspiration and flushing gastric content) Tube secured by: other (Balloon inflation ) Patient tolerated procedure: well and no complications Additional comments: Pre-procedure diagnosis Malfuntion PEG tube Post-Procedure diagnosis the same Procedure done Replacmenet of PEG tube by Shiraz's button Description of the procedure Time-out was done verifying the patient's name and date of the procedure and destination after the procedure and the procedure itself,all were in agreement in the presence of the DOMINIC Yoder.The PEG was explanted and a pretested Shiraz button 20 Fr 4.5 cm was then inserted without difficulty. Patient tolerated the procedure well Complications: No immediate complications EBL: none Specimens:none I was present for the whole entire procedure.
--- NOTE | 2020-07-10 13:13 | ANE.PACU2 ---
Inpatient post-anesthesia follow up: Airway intact: Yes Vital signs: Temperature 98 F Pulse Rate 53 Respiratory Rate 16 Blood Pressure 150/88 Pulse Oximetry 98 Oxygen Delivery Me thod Room Air Oxygen Flow Rate Fraction of Inspir ed Oxygen Hydration adequate: Yes Nausea and vomiting: No Pain level: 1 Mental status: Baseline
[2020-07-10 13:20] VITALS: BP 122/87; PULSE 53; RESP 18; O2SAT 98
--- NOTE | 2020-07-10 13:45 | PC.NURSE ---
1305- G-TUBE EXCHANGE DONE, ANUSHA-CORREA LOW-PROFILE G-TUBE LOT #[id number], EXP AUGUST 30, 2021
== END 2020-07-10 13:28 | disposition home or self-care (01) ==
PROVIDERS: PCP Physician Assistant; Visit Provider Surgery
PROC: 0DP64UZ Removal of Feeding Device from Stomach, Percutaneous Endoscopic Approach (ICD-10-PCS; CPT 43762; principal; 2020-07-10 11:00)
DX: K94.23 Gastrostomy malfunction (principal); I10 Essential (primary) hypertension; Z86.73 Personal history of transient ischemic attack (TIA), and cerebral infarction without residual deficits; E78.5 Hyperlipidemia, unspecified; E03.9 Hypothyroidism, unspecified
CPT/HCPCS: 43762; J2704; J7030

== ENCOUNTER → 2021-01-31 08:49 | Outpatient (BNVA) | payer MEDICARE, MEDICAID, SELFPAY | PROVIDERS: PCP Physician Assistant; Visit Provider Nurse Practitioner | DX: F70 Mild intellectual disabilities (principal); Z79.899 Other long term (current) drug therapy; F20.89 Other schizophrenia | CPT/HCPCS: 99214 ==

== ENCOUNTER → 2021-08-01 07:11 | Outpatient (BNVA) | payer MEDICARE, MEDICAID, SELFPAY | PROVIDERS: PCP Physician Assistant; Visit Provider Nurse Practitioner | DX: F20.89 Other schizophrenia (principal); F70 Mild intellectual disabilities | CPT/HCPCS: 99214 ==

== ENCOUNTER → 2022-04-25 09:27 | Outpatient (BNVA) | payer MEDICARE, MEDICAID, OTHER, SELFPAY | PROVIDERS: PCP Physician Assistant; Visit Provider Nurse Practitioner | DX: Z79.899 Other long term (current) drug therapy (principal) | CPT/HCPCS: 80061; 80178; 83036 ==

== ENCOUNTER 2022-10-30 00:37 | Inpatient (IN) | payer MEDICARE, MEDICAID, SELFPAY ==
[2022-10-30] VITALS (11 sets, daily range): BP systolic 93–118; BP diastolic 48–71; PULSE 54–73; RESP 16–19; TEMP 36.4–36.9; O2SAT 90–98; BMI 33.4
--- NOTE | 2022-10-30 00:40 | CTR_ITS ---
PROCEDURE INFORMATION: Exam: CT Maxillofacial Without Contrast Exam date and time: 10/30/2022 1:54 AM Age: 67 years old Clinical indication: Injury or trauma; Fall; Laceration; Head/scalp; Loss of consciousness not known; Not specified TECHNIQUE: Imaging protocol: Computed tomography of the face without contrast. Radiation optimization: All CT scans at this facility use at least one of these dose optimization techniques: automated exposure control; mA and/or kV adjustment per patient size (includes targeted exams where dose is matched to clinical indication); or iterative reconstruction. REPORTING DATA: Count of CT and Cardiac NM exams in prior 12 months: This patient has received 0 known CTs and 0 known cardiac nuclear medicine studies in the 12 months prior to the current study. COMPARISON: CT head wo con* [id number] 10/30/2022 1:47 AM RADIATION DOSE METRICS: Total DLP (mGy-cm): 623.98 FINDINGS: Orbital cavities: Orbits are normal. Globes are unremarkable. Bones/joints: No acute fracture. Old healed bilateral nasal bone fractures, with leftward deviation. Paranasal sinuses: Mucous retention cyst in the left maxillary sinus. No air-fluid levels. Soft tissues: Unremarkable. Brain: Visualized intracranial contents demonstrate no acute abnormality. Dental: Patient is edentulous. CT/CT facial bones wo con* [id number] IMPRESSION: 1. No acute fracture. 2. Old healed bilateral nasal bone fractures, with leftward deviation.
--- NOTE | 2022-10-30 00:40 | CTR_ITS ---
PROCEDURE INFORMATION: Exam: CT Head Without Contrast Exam date and time: 10/30/2022 1:47 AM Age: 67 years old Clinical indication: Injury or trauma; Fall; Blunt trauma (contusions or hematomas) TECHNIQUE: Imaging protocol: Computed tomography of the head without contrast. Radiation optimization: All CT scans at this facility use at least one of these dose optimization techniques: automated exposure control; mA and/or kV adjustment per patient size (includes targeted exams where dose is matched to clinical indication); or iterative reconstruction. REPORTING DATA: Count of CT and Cardiac NM exams in prior 12 months: This patient has received 0 known CTs and 0 known cardiac nuclear medicine studies in the 12 months prior to the current study. COMPARISON: 1. CT head wo contrast 07/16/2019 8:[address] facial bones wo contrast 10/30/2022 1:54 AM RADIATION DOSE METRICS: Total DLP (mGy-cm): 1235.78 FINDINGS: Brain: No acute intracranial hemorrhage, acute large territory infarct, or obvious mass lesion. Age appropriate diffuse cerebral volume loss. Chronic white matter changes, likely to be chronic small vessel ischemic changes. Cerebral ventricles: No ventriculomegaly. Paranasal sinuses: Mucous retention cyst in the left maxillary sinus. No air-fluid levels. Mastoid air cells: Visualized mastoid air cells are well aerated. Bones/joints: Old left frontal richard hole. No acute fracture. Chronic deformity of the nasal bones, consistent with old healed fractures. Soft tissues: Right frontotemporal scalp skin jones and underlying soft tissue swelling. CT/CT head wo con* [id number] IMPRESSION: 1. No acute intracranial abnormality identified. 2. Right frontotemporal scalp skin jones and underlying soft tissue swelling.
--- NOTE | 2022-10-30 00:40 | CTR_ITS ---
PROCEDURE INFORMATION: Exam: CT Cervical Spine Without Contrast Exam date and time: 10/30/2022 1:51 AM Age: 67 years old Clinical indication: Injury or trauma; Fall; Blunt trauma TECHNIQUE: Imaging protocol: Computed tomography of the cervical spine without contrast. Radiation optimization: All CT scans at this facility use at least one of these dose optimization techniques: automated exposure control; mA and/or kV adjustment per patient size (includes targeted exams where dose is matched to clinical indication); or iterative reconstruction. REPORTING DATA: Count of CT and Cardiac NM exams in prior 12 months: This patient has received 0 known CTs and 0 known cardiac nuclear medicine studies in the 12 months prior to the current study. COMPARISON: CT head wo contrast 10/30/2022 1:47 AM RADIATION DOSE METRICS: Total DLP (mGy-cm): 219.97 FINDINGS: Bones/joints: Extensive flowing anterior osteophytes throughout the cervical spine, with only C2-C3 anteriorly not appearing fused. No acute fracture or subluxation. Prominent multilevel degenerative disc disease, with multilevel stenosis, including at least moderate stenosis at C2-C3. Lungs: Minimal patchy ground-glass opacity in the upper lungs. Soft tissues: Unremarkable. CT/CT cervical spin wo con* [id number] IMPRESSION: 1. No acute injury. 2. Minimal patchy ground-glass opacity in the upper lungs. Not fully imaged, but could represent patchy inflammatory infiltrate or mild edema. 3. Extensive flowing anterior osteophytes throughout the cervical spine, with only C2-C3 anteriorly not appearing fused. Most consistent with diffuse idiopathic skeletal hyperostosis. 4. Prominent multilevel degenerative disc disease, with multilevel stenosis, including at least moderate stenosis at C2-C3.
--- NOTE | 2022-10-30 00:40 | XRR_ITS ---
PROCEDURE INFORMATION: Exam: XR Chest Exam date and time: 10/30/2022 2:34 AM Age: 67 years old Clinical indication: Injury or trauma; Fall; Blunt trauma (contusions or hematomas) TECHNIQUE: Imaging protocol: Radiologic exam of the chest. Views: 1 view. COMPARISON: CT chest con [id number] 07/16/2019 8:58 PM FINDINGS: Lungs: Small lung volumes with mild accentuation of the perihilar pulmonary vascularity. Moderate left and mild right basilar atelectasis/interstitial opacities with some airspace opacities. Pleural spaces: No definite pneumothorax seen. Assessment is somewhat limited due to radiographic technique. Heart/Mediastinum: Normal heart size. Normal mediastinum. Midline trachea. Bones/joints: No acute osseous abnormalities seen. Mild to moderate bilateral shoulder degenerative changes. Small to medium-sized degenerative osteophytes and moderate degenerative disc disease changes are seen in the mid thoracic spine. XR/XR chest 1V portable [id number] IMPRESSION: Small lung volumes with mild accentuation of the perihilar pulmonary vascularity. Moderate left and mild right basilar atelectasis/interstitial opacities with some airspace opacities. Recommend follow-up.
--- NOTE | 2022-10-30 00:53 | ED_ITS ---
HPI - Fall General: Chief Complaint: Fall Stated Complaint: FALL Time Seen by Provider: 10/30/22 00:38 Source: patient and EMS Mode of arrival: EMS History of Present Illness: 67-year-old male history of schizophrenia along with intellectual disabilities multiple medical problems he is on multiple medications per family patient had some increased weakness and lethargy over the last 2 days states that he got up and fell the night and hit his head does have a laceration to his right parietal region. He states he has a mild headache he had no loss of conscious denies any pain elsewhere denies any fevers Associated symptoms-after fall: Reports headache(s); Denies abdominal pain, chest pain or neck pain Review of Systems Const: Reports: fatigue and malaise; Denies: fever(s) or chills ENMT: Denies: throat pain or dental pain Card: Denies: chest pain Resp: Denies: dyspnea GI: Denies: abdominal pain, nausea, vomiting or diarrhea : Denies: dysuria Musc: Denies: neck pain or back pain Skin/Breast: Denies: rash Neuro: Reports: headache(s) PFSH ED PFSH: Medical History Anxiety and depression History of recurrent UTI (urinary tract infection) Hyperlipidemia Hypertension Hypothyroidism Mccleary use Mild intellectual disabilities On combination antipsychotic drug therapy Other schizophrenia Surgical History History of craniotomy S/P percutaneous endoscopic gastrostomy (PEG) tube placement Social History Smoking and tobacco status: unknown if ever smoked Alcohol intake: never Substance/Drug Use: never Marital status: Single Current occupational status: disabled Physical Exam Const: COMMON NORMALS: patient oriented x3 HENMT: COMMON NORMALS: normocephalic; head/scalp not atraumatic (6cm laceration to right parietal scalp) HEAD & SCALP: normocephalic; not atraumatic (6cm laceration to right parietal scalp) Neck/C-Spine: COMMON NORMALS: full ROM and supple Chest: COMMONS NORMALS: normal inspection of the chest and normal palpation of entire chest wall Resp: COMMON NORMALS: normal respiratory effort, No retractions and No use of accessory muscles AUSCULTATION: rales Cardio: COMMON NORMALS: regular rate, regular rhythm and No murmurs present (Cardio) RATE: regular rate RHYTHM: regular rhythm GI: COMMON NORMALS: Normal to inspection, nondistended, normoactive bowel sounds present, Soft to palpation, non-tender and no masses PALPATION: Yes Soft to palpation Extremity: COMMON NORMALS: normal to inspection and full ROM Neuro: COMMON NORMALS: patient oriented x3, moves all extremities and no focal motor deficits Psych: COMMON NORMALS: mental status grossly normal, Normal thought process present and cooperative THOUGHT PROCESS: Normal thought process present Skin: COMMON NORMALS: no rashes or lesions noted and no wounds GENERAL SKIN EXAM: no rashes or lesions noted Procedures Laceration Laceration 1: Site: scalp Side (If applicable): right Size (cm): 5 Description: linear Depth: simple, single layer Local Anesthetic: lidocaine 1% Amount of anesthesia used (mL): 10 Pre-repair: wound explored and irrigated extensively Skin layer closed with: other (jones) Number of sutures: 9 Size: 4-0 Course Vital Signs: Vital signs: Vital Signs Temperature 97.5 F L 10/30/22 00:38 Pulse Rate 56 L 10/30/22 03:00 Respiratory Rate 16 10/30/22 03:00 Blood Pressure 96/57 10/30/22 03:00 Pulse Oximetry 90 10/30/22 03:00 Oxygen Delivery Me thod Room Air 10/30/22 00:38 MDM - Fall Medical Decision Making Patient presents with fall along with generalized weakness he is found to have pneumonia he has had history of aspiration ammonia in the past. He has not required any oxygen here he does have an elevated white count blood pressures wal[place] ve been slightly hypotensive improved with fluids lactates normal start IV antibiotics will admit at this time. Lab Data 10/30/22 01:25 10/30/22 01:25 Radiology Impressions Cervical Spine CT 10/30/22 00:40 IMPRESSION: 1. No acute injury. 2. Minimal patchy ground-glass opacity in the upper lungs. Not fully imaged, but could represent patchy inflammatory infiltrate or mild edema. 3. Extensive flowing anterior osteophytes throughout the cervical spine, with only C2-C3 anteriorly not appearing fused. Most consistent with diffuse idiopathic skeletal hyperostosis. 4. Prominent multilevel degenerative disc disease, with multilevel stenosis, including at least moderate stenosis at C2-C3. Chest X-Ray 10/30/22 00:40 IMPRESSION: Small lung volumes with mild accentuation of the perihilar pulmonary vascularity. Moderate left and mild right basilar atelectasis/interstitial opacities with some airspace opacities. Recommend follow-up. Face CT 10/30/22 00:40 IMPRESSION: 1. No acute fracture. 2. Old healed bilateral nasal bone fractures, with leftward deviation. Head CT 10/30/22 00:40 IMPRESSION: 1. No acute intracranial abnormality identified. 2. Right frontotemporal scalp skin jones and underlying soft tissue swelling. Laboratory Results WBC 19.06 10^3/uL (3.29-11.43) H 10/30/22 01:25 RBC 4.36 10^6/uL (3.85-5.65) 10/30/22 01:25 Hgb 13.10 g/dL (11.27-16.99) 10/30/22 01:25 Hct 40.7 % (37-53) 10/30/22 01:25 MCV 93.3 fl (82-101) 10/30/22 01:25 MCH 30.0 pg (27-33) 10/30/22 01:25 MCHC 32.2 g/dL (30-55) 10/30/22 01:25 RDW 12.1 % (12.1-15.1) 10/30/22 01:25 Plt Count 208 10^3/cmm (157-399) 10/30/22 01:25 MPV 10.8 fL (7.4-10.4) H 10/30/22 01:25 Neut % (Auto) 86.6 % 10/30/22 01:25 Lymph % (Auto) 7.7 % 10/30/22 01:25 Lea % (Auto) 3.6 % 10/30/22 01:25 Eos % (Auto) 1.2 % 10/30/22 01:25 Baso % (Auto) 0.5 % 10/30/22 01:25 Neut # (Auto) 16.52 10^3/uL (1.8-7.7) H 10/30/22 01:25 Lymph # (Auto) 1.5 10^3/uL (0.8-4.8) 10/30/22 01:25 Lea # (Auto) 0.7 10^3/uL (0.2-0.9) 10/30/22 01:25 Eos # (Auto) 0.2 10^3/uL (0.0-0.8) 10/30/22 01:25 Baso # (Auto) 0.1 10^3/uL (0.0-0.1) 10/30/22 01:25 Nucleated RBC % (auto) 0 % 10/30/22 01:25 Nucleated RBCs # 0.0 /100WBC 10/30/22 01:25 Sodium 134 mmol/L (136-145) L 10/30/22 01:25 Potassium 4.5 mmol/L (3.5-5.1) 10/30/22 01:25 Chloride 96 mmol/L (98-107) L 10/30/22 01:25 Carbon Dioxide 30 mmol/L (22-29) H 10/30/22 01:25 Anion Gap 12.5 (5-19) 10/30/22 01:25 BUN 17 mg/dL (8-23) 10/30/22 01:25 Creatinine 1.1 mg/dL (0.7-1.2) 10/30/22 01:25 GFR Calculation 66.8 mL/min (90-130) L 10/30/22 01:25 Glucose 115 mg/dL (65-115) 10/30/22 01:25 Calculated Osmolality 280 mOsm/kg (285-295) L 10/30/22 01:25 Lactic Acid 1.4 mmol/L (0.5-2.2) 10/30/22 01:25 Calcium 9.8 mg/dL (8.5-10.5) 10/30/22 01:25 Total Bilirubin 0.7 mg/dL (0.15-1.2) 10/30/22 01:25 AST 25 U/L (0-40) 10/30/22 01:25 ALT 17 U/L (0-41) 10/30/22 01:25 Alkaline Phosphatase 89 U/L (40-130) 10/30/22 01:25 Total Protein 7.7 g/dL (6.6-8.7) 10/30/22 01:25 Albumin 4.0 g/dL (3.5-5.2) 10/30/22 01:25 Globulin 3.7 g/dL (1.3-4.6) 10/30/22 01:25 TSH 4.16 uIU/mL (0.27-4.20) 10/30/22 01:25 Urine Color Yellow (Yellow) 10/30/22 01:36 Urine Appearance Clear (CLEAR) 10/30/22 01:36 Urine pH 6 (5-7) 10/30/22 01:36 Ur Specific [place] 1.010 (1.005-1.030) 10/30/22 01:36 Urine Protein Neg (Negative) 10/30/22 01:36 Urine Glucose (UA) Norm (Normal) 10/30/22 01:36 Urine Ketones 1+ (Negative) H 10/30/22 01:36 Urine Blood Neg (Negative) 10/30/22 01:36 Urine Nitrate Negative (Negative) 10/30/22 01:36 Urine Bilirubin Neg (Negative) 10/30/22 01:36 Urine Urobilinogen Neg mg/dL (Negative) 10/30/22 01:36 Ur Leukocyte Esterase Negative (Negative) 10/30/22 01:36 Mccleary 1.4 mmol/L (0.6-1.2) H 10/30/22 01:25 Discharge Plan Discharge Patient Disposition: Admitted As Inpatient Admit Provider: Morales Mackay Clinical Impression: Pneumonia, Weakness, Laceration of head Condition: Stable Coding Level of Care Code ED Associate Embalmer/Funeral Director for Levi Win
[2022-10-30 01:30] LABS: Basophils # 0.1 10^3/uL (0.0-0.1); Basophils % 0.5 %; Eosinophils # 0.2 10^3/uL (0.0-0.8); Eosinophils % 1.2 %; Hematocrit 40.7 % (37-53); Lymphocytes # 1.5 10^3/uL (0.8-4.8); Lymphocytes % 7.7 %; Mean Corpuscular HGB Conc 32.2 g/dL (30-55); Mean Corpuscular Volume 93.3 fl (82-101); Mean Platelet Volume 10.8 fL (7.4-10.4); Monocytes # 0.7 10^3/uL (0.2-0.9); Monocytes % 3.6 %; Neutrophils # 16.52 10^3/uL (1.8-7.7); Neutrophils % 86.6 %; Nucleated Red Blood Cells % 0 %; Platelet Count 208 10^3/cmm (157-399); Red Blood Count 4.36 10^6/uL (3.85-5.65); Red Cell Distribution Width 12.1 % (12.1-15.1); White Blood Count 19.06 10^3/uL (3.29-11.43)
[2022-10-30 01:38] LABS: Add Urine Microscopic? NO; Charge for UA Resulting for Rev
[2022-10-30] MEDS: sodium chloride 0.9% 1,000 ML 999 ML IV ×3 (01:41→03:49)
[2022-10-30 01:50] LABS: Bilirubin Urine Neg (Negative); Blood Urine Neg (Negative); Glucose Urine UA Norm (Normal); Ketones Urine 1+ (Negative); Leukocyte Esterase Urine Negative (Negative); Nitrate Urine Negative (Negative); Protein Urine Neg (Negative); Urine Appearance Clear (CLEAR); Urine Color Yellow (Yellow); Urobilinogen Urine Neg (Negative); pH Urine 6 (5-7)
[2022-10-30 01:54] LABS: Lactic Sepsis W/Reflex 1.4 mmol/L (0.5-2.2)
[2022-10-30 01:58] LABS: Lithium 1.4 mmol/L (0.6-1.2)
[2022-10-30 02:04] LABS: Alanine Aminotransferase 17 U/L (0-41); Alkaline Phosphatase 89 U/L (40-130); Anion Gap 12.5 (5-19); Aspartate Amino Transferase 25 U/L (0-40); Blood Urea Nitrogen 17 mg/dL (8-23); Calcium 9.8 mg/dL (8.5-10.5); Carbon Dioxide 30 mmol/L (22-29); Chloride 96 mmol/L (98-107); Globulin 3.7 g/dL (1.3-4.6); Glomerular Filtration Rate 66.8 mL/min (90-130); Glucose 115 mg/dL (65-115); Osmolality Calculated 280 mOsm/kg (285-295); Potassium 4.5 mmol/L (3.5-5.1); Sodium 134 mmol/L (136-145); Thyroid Stimulating Hormone 4.16 uIU/mL (0.27-4.20); Total Bilirubin 0.7 mg/dL (0.15-1.2); Total Protein 7.7 g/dL (6.6-8.7)
[2022-10-30] MEDS: cefTRIAXone 1,000 MG in sodium chloride 0.9% (plus) 50 ML 100 MG IV (03:48)
[2022-10-30] MEDS: azithromycin 500 MG in sodium chloride 0.9% 250 ML 250 MG IV (03:50)
--- NOTE | 2022-10-30 05:34 | P.HP_ITS ---
Providers/Chief Complaint Admitting Physician: Morales Mackay DO Primary Care Provider: Eliane Bruce Chief Complaint: FALL History of Present Illness Deangelo Angel is a 67 year old male with intellectual disabilities living in a fpc. History is taken from his private caregiver. Over the last 2 days the patient has been more lethargic than usual and he has had a cough for about a week now. The cough is unproductive. Last night when the caregiver was changing the patient the patient stood up and promptly fell forward hitting his head and suffering from the laceration. In the emergency room testing revealed suspected pneumonia. He has an elevated white blood cell count remainder of the work-up was negative including urinalysis. She does carry the diagnosis of chronic pulmonary aspiration. He has a PEG tube and has 90% of all his intake through the PEG tube including meds. The caregiver reports that he does take very small bites of a few treats daily. The caregiver did not notice any increased cough or choking during any of these treats recently. Review of Systems General: Reports: ROS unobtainable due to medical condition Medications/Allergies Home Medications Medication Instructions Recorded Confirmed Last Taken Type ascorbic acid (vitamin C) 1,000 mg 1 gm feeding tube BID 04/25/19 10/30/22 07/09/20 History tablet gabapentin 400 mg capsule 400 mg feeding tube TID 04/25/19 10/30/22 07/09/20 History methenamine hippurate 1 gram tablet 1 gm feeding tube BID 04/25/19 10/30/22 0 07/09/20 History sennosides 8.6 mg-docusate sodium 2 tab-cap PO BID 04/25/19 10/30/22 07/09/20 History 50 mg tablet (Senna Plus) simvastatin 20 mg tablet 20 mg feeding tube BEDTIME 04/25/19 10/30/22 07/09/20 History acetaminophen 325 mg tablet 325 mg feeding tube Q4H PRN Pain 07/13/19 10/30/22 07/09/20 History loperamide 2 mg capsule 4 mg feeding tube Q4H PRN Diarrhea 07/13/19 10/30/22 07/09/20 History magnesium citrate 150 ml feeding tube PRN 07/13/19 06/04/22 07/09/20 History Constipation food supplemt, lactose-reduced See Rx Instructions .Route 07/21/19 10/30/22 07/09/20 Rx 0.05 gram-1.5 kcal/mL oral liquid .COMPLEX #5,688 mL (Ensure Plus) metoprolol tartrate 25 mg tablet 25 mg feeding tube BID 07/10/20 10/30/22 07/09/20 History polyethylene glycol 3350 17 17 g feeding tube QNOON 08/14/20 10/30/22 Unknown History gram/dose oral powder (Miralax) levothyroxine 200 mcg tablet 175 mcg feeding tube DAILY 01/01/22 10/30/22 Unknown History cholecalciferol (vitamin D3) 125 125 mcg PO DAILY #30 tabs 09/15/22 10/30/22 Unknown Rx mcg (5,000 unit) tablet (Vitamin D3) hydroxyzine HCl 50 mg tablet 50 mg feeding tube TID 10/30/22 10/30/22 Unknown History lithium carbonate 300 mg tablet 300 mg feeding tube BID 10/30/22 10/30/22 U nknown History mupirocin 2 % topical ointment 1 applic topical BID PRN Wound care 10/30/22 10/30/22 Unknown History olanzapine 20 mg tablet 20 mg feeding tube BID 10/30/22 10/30/22 Unknown History quetiapine 100 mg tablet (Seroquel) 100 mg feeding tube BID 10/30/22 10/30/22 Unknown History sertraline 100 mg tablet 200 mg feeding tube DAILY 10/30/22 10/30/22 Unknown History tamsulosin 0.4 mg capsule 0.8 mg PO BEDTIME 10/30/22 10/30/22 Unknown History white petrolatum (Petroleum Jelly 1 applic topical DAILY 10/30/22 10/30/22 Unknown History topical) Allergies Allergy/AdvReac Type Severity Reaction Status Date / Time Benzodiazepines Allergy Unknown Verified 06/04/22 09:40 lorazepam Allergy Unknown Verified 06/04/22 09:40 valproic acid Allergy Unknown Verified 06/04/22 09:40 PFSH Acute PFSH: Medical History Anxiety and depression History of recurrent UTI (urinary tract infection) Hyperlipidemia Hypertension Hypothyroidism [place] use Mild intellectual disabilities On combination antipsychotic drug therapy Other schizophrenia Surgical History History of craniotomy S/P percutaneous endoscopic gastrostomy (PEG) tube placement Social History Smoking and tobacco status: unknown if ever smoked Alcohol intake: never Substance/Drug Use: never Marital status: Single Current occupational status: disabled Vitals/I&O/Wt Last Vital Signs Temp 97.6 F 10/30/22 05:00 Pulse 66 10/30/22 05:00 Resp 18 10/30/22 05:00 BP 114/66 10/30/22 05:00 Pulse Ox 98 10/30/22 05:00 O2 Del Method Room Air 10/30/22 04:46 10/29/22 10/29/22 10/30/22 14:59 22:59 06:59 Intake Total 3300 / 3300 Balance 3300 / 3300 Weight last 48 hrs Weight 99.79 kg Physical Exam Narrative: Patient is seen sleeping in bed. I did not try to arouse him. He was asleep with blankets over his head. He had rhonchorous upper respiratory sounds while sleeping. Neurologic. Deferred at this time Head: Patient has a laceration with jones on the right parietal region of his head. There are a few other markings indicative of trauma Eyes pupils are equal round and reactive to light and accommodation Mouth patient with large tongue mucous membranes are moist Neck supple no JVD carotid bruits or lymphadenopathy Chest rises symmetrically with inspiration Cardiac difficult to hear heart sounds through rhonchorous respirations Lungs upper respiratory rhonchi, actually clear and the lateral bases. Abdomen soft nontender nondistended positive bowel sounds PEG tube in place clean dry and intact Extremities for present no clubbing cyanosis or edema Data 10/30/22 01:25 10/30/22 01:25 Micro: Microbiology 10/30/22 03:34 Blood Culture - Preliminary Blood SPECIMEN COLLECTED 10/30/22 03:21 Blood Culture - Preliminary Blood SPECIMEN COLLECTED CXR: My impression: Bilateral lower lobe interstitial infiltrates Radiologist's impression: IMPRESSION: Small lung volumes with mild accentuation of the perihilar pulmonary vascularity. Moderate left and mild right basilar atelectasis/interstitial opacities with some airspace opacities. Recommend follow-up. A&P Assessment and plan (1) Pneumonia: (2) Weakness: (3) Laceration of head: (4) [place]way use: (5) Mild intellectual disabilities: (6) Other schizophrenia: (7) Chronic pulmonary aspiration: (8) Feeding difficulties: (9) Hypotension: Plan 1. Pneumonia. Rocephin and Zithromax. Pulmonary toilet. Oxygen as needed 2. relative hypotension. Received 2 L normal saline in the ED will continue hydration. Hold antihypertensives for now 3. Chronic pulmonary aspiration and feeding difficulties. Will follow group homes feeding schedule and recommendations. 4. History of schizophrenia, intellectual disabilities. Patient will need a sitter. 5. Laceration to head. Currently has jones. To be removed in 10 to 14 days Attestations Medical Necessity Statement*: Patient's care will cross 2 midnights due to pneumonia treatment Coding Level of Care Code Acute Code for [facility] Fwd Diagnoses Pneumonia J18.9 Weakness R53.1 Laceration of head S01.91XA Northway use Z79.899 Mild intellectual disabilities F70 Other schizophrenia F20.89 Chronic pulmonary aspiration T17.908A Feeding difficulties R63.3 Hypotension I95.9
[2022-10-30] MEDS: enoxaparin 30 mg/0.3 mL Syringe SUBCUT (06:04)
[2022-10-30] MEDS: sodium chloride 0.9% 1,000 ML 75 ML IV (06:04)
--- NOTE | 2022-10-30 08:20 | PC.PHAR ---
pt is from [facility]-medications entered are from the pts mar and tar that was sent in the pt
[2022-10-30] MEDS: sennosides-docusate Tablet 2 TAB PO ×2 (10:23→16:40)
[2022-10-30] MEDS: lithium carbonate 300 mg Capsule PO ×2 (10:24→16:40)
[2022-10-30] MEDS: sertraline 100 mg Tablet 200 MG PEG-TUBE (10:24)
[2022-10-30] MEDS: OLANZapine 10 mg TABLET 20 MG PO ×2 (10:24→16:40)
[2022-10-30] MEDS: quetiapine 100 mg Tablet PEG-TUBE ×2 (10:24→16:40)
[2022-10-30] MEDS: levothyroxine 175 mcg Tablet PEG-TUBE (10:24)
[2022-10-30] MEDS: hyDROXYzine 25 mg Capsule 50 MG PO ×3 (10:24→21:51)
[2022-10-30] MEDS: gabapentin 400 mg Capsule PEG-TUBE ×3 (10:24→21:51)
[2022-10-30] MEDS: petrolatum oint Pkt 5 gm 1 APPLIC TOPICAL (10:25)
[2022-10-30] MEDS: polyethylene glycol 3350 Pkt 17 gm PO (14:15)
[2022-10-30] MEDS: tamsulosin 0.4 mg Capsule 0.8 MG PO (21:50)
[2022-10-30] MEDS: atorvastatin 40 mg Tablet 20 MG PEG-TUBE (21:50)
[2022-10-31] VITALS: BP 91/54; PULSE 75; RESP 16; TEMP 37; O2SAT 91
[2022-10-31] MEDS: sodium chloride 0.9% 1,000 ML 75 ML IV (00:04)
[2022-10-31 03:48] VITALS: BP 130/81; PULSE 53; RESP 16; TEMP 36.4; O2SAT 98
[2022-10-31] MEDS: enoxaparin 30 mg/0.3 mL Syringe SUBCUT (04:31)
[2022-10-31] MEDS: cefTRIAXone 1,000 MG in sodium chloride 0.9% (plus) 50 ML 100 MG IV (04:31)
[2022-10-31] MEDS: azithromycin 500 MG in sodium chloride 0.9% 250 ML 250 MG IV (04:59)
[2022-10-31 07:00] LABS: Basophils % 0.5 %; Eosinophils # 0.4 10^3/uL (0.0-0.8); Eosinophils % 4.2 %; Hematocrit 35.6 % (37-53); Lymphocytes % 11.8 %; Mean Corpuscular HGB Conc 30.9 g/dL (30-55); Mean Corpuscular Hemoglobin 30.1 pg (27-33); Mean Corpuscular Volume 97.5 fl (82-101); Monocytes # 0.4 10^3/uL (0.2-0.9); Monocytes % 4.6 %; Neutrophils % 78.4 %; Nucleated Red Blood Cells % 0 %; Platelet Count 148 10^3/cmm (157-399); Red Blood Count 3.65 10^6/uL (3.85-5.65); Red Cell Distribution Width 12.5 % (12.1-15.1); White Blood Count 8.66 10^3/uL (3.29-11.43)
[2022-10-31 07:18] VITALS: BP 116/67; PULSE 59; RESP 17; O2SAT 96
[2022-10-31 07:19] LABS: Blood Urea Nitrogen 9 mg/dL (8-23); Calcium 8.7 mg/dL (8.5-10.5); Carbon Dioxide 25 mmol/L (22-29); Chloride 111 mmol/L (98-107); Glomerular Filtration Rate 84.2 mL/min (90-130); Glucose 88 mg/dL (65-115); Osmolality Calculated 292 mOsm/kg (285-295); Sodium 142 mmol/L (136-145)
[2022-10-31 07:23] LABS: Anion Gap 9.9 (5-19); Potassium 3.9 mmol/L (3.5-5.1)
[2022-10-31] MEDS: OLANZapine 10 mg TABLET 20 MG PO (09:29)
[2022-10-31] MEDS: quetiapine 100 mg Tablet PEG-TUBE (09:30)
[2022-10-31] MEDS: gabapentin 400 mg Capsule PEG-TUBE (09:30)
[2022-10-31] MEDS: sertraline 100 mg Tablet 200 MG PEG-TUBE (09:30)
[2022-10-31] MEDS: hyDROXYzine 25 mg Capsule 50 MG PO (09:30)
[2022-10-31] MEDS: levothyroxine 175 mcg Tablet PEG-TUBE (09:31)
[2022-10-31 11:06] VITALS: BP 115/68; PULSE 66; RESP 17; TEMP 36.9; O2SAT 98
--- NOTE | 2022-10-31 11:38 | P.DS_ITS ---
Discharge Providers Date of Admission: 10/30/22 03:37 Date of Discharge: October 31, 2022 Attending Provider at Admission: Morales Mackay DO Attending Provider at Discharge: Kemar Eckert MD Primary Care Provider: Eliane Bruce Diagnoses at Discharge Discharge Diagnosis (1) Pneumonia: Status: Acute (2) Weakness: Status: Acute (3) Laceration of head: Status: Acute (4) [place] use: Status: Acute (5) Mild intellectual disabilities: Status: Acute (6) Other schizophrenia: Status: Acute (7) Chronic pulmonary aspiration: Status: Acute (8) Feeding difficulties: Status: Resolved (9) Hypotension: Status: Acute Reason for Visit Reason for Visit: FALL Hospital Course Hospital Course Deangelo Angel is a 67-year-old male with a past medical history significant for intellectual disability, anxiety, depression, and schizophrenia who presented from care home with lethargy and cough, found to have debility and physical deconditioning secondary to community acquired pneumonia. Patient treated with IV antibiotics with ceftriaxone and azithromycin. Symptoms improved. His recovery was quicker than expected. He was rotated to cefdinir and azithromycin at discharge. He is to follow up with PCP for further care. Found to have relative hypotension treated with IV fluids. He as found to have scalp lacertion receiving jones. He is to have jones remove in approximately 10-12 days. Physical Exam Narrative: General: Patient is awake. Head: Laceration present. Neck: No JVD. Cardiovascular: RRR. No gallops. No murmurs. Lungs: Breath sounds are course. No wheezing. No crackles. Skin: No jaundice. No rashes. Abdomen: Normal bowel sounds, abdomen soft and nontender. Genito Urinary: Genital exam not performed since complaints not related. Musculoskeletal: No erythematous joints. Neurological: Moves all 4 extremities. No myoclonus. Discharge Data Studies Completed and Pending Completed Studies During Hospitalization Category Date Time Status CT cervical spin wo con* [id number] Stat Cat Scan 10/30/22 00:[address] facial bones wo con* [id number] Stat Cat Scan 10/30/22 00:[address] head wo con* [id number] Stat Cat Scan 10/30/22 00:40 Completed CXRP [XR chest 1V portable [id number]] Stat Exams 10/30/22 00:40 Completed Pending at discharge Category Date Time Status Blood Culture Stat Lab 10/30/22 03:34 Results Radiology Impressions Cervical Spine CT 10/30/22 00:40 IMPRESSION: 1. No acute injury. 2. Minimal patchy ground-glass opacity in the upper lungs. Not fully imaged, but could represent patchy inflammatory infiltrate or mild edema. 3. Extensive flowing anterior osteophytes throughout the cervical spine, with only C2-C3 anteriorly not appearing fused. Most consistent with diffuse idiopathic skeletal hyperostosis. 4. Prominent multilevel degenerative disc disease, with multilevel stenosis, including at least moderate stenosis at C2-C3. Chest X-Ray 10/30/22 00:40 IMPRESSION: Small lung volumes with mild accentuation of the perihilar pulmonary vascularity. Moderate left and mild right basilar atelectasis/interstitial opacities with some airspace opacities. Recommend follow-up. Face CT 10/30/22 00:40 IMPRESSION: 1. No acute fracture. 2. Old healed bilateral nasal bone fractures, with leftward deviation. Head CT 10/30/22 00:40 IMPRESSION: 1. No acute intracranial abnormality identified. 2. Right frontotemporal scalp skin jones and underlying soft tissue swelling. Laboratory Results WBC 8.66 10^3/uL (3.29-11.43) 10/31/22 06:51 RBC 3.65 10^6/uL (3.85-5.65) L 10/31/22 06:51 Hgb 11.00 g/dL (11.27-16.99) L 10/31/22 06:51 Hct 35.6 % (37-53) L 10/31/22 06:51 MCV 97.5 fl (82-101) 10/31/22 06:51 MCH 30.1 pg (27-33) 10/31/22 06:51 MCHC 30.9 g/dL (30-55) 10/31/22 06:51 RDW 12.5 % (12.1-15.1) 10/31/22 06:51 Plt Count 148 10^3/cmm (157-399) L 10/31/22 06:51 MPV 11.0 fL (7.4-10.4) H 10/31/22 06:51 Neut % (Auto) 78.4 % 10/31/22 06:51 Lymph % (Auto) 11.8 % 10/31/22 06:51 [facility] % (Auto) 4.6 % 10/31/22 06:51 Eos % (Auto) 4.2 % 10/31/22 06:51 Baso % (Auto) 0.5 % 10/31/22 06:51 Neut # (Auto) 6.80 10^3/uL (1.8-7.7) 10/31/22 06:51 Lymph # (Auto) 1.0 10^3/uL (0.8-4.8) 10/31/22 06:51 [facility] # (Auto) 0.4 10^3/uL (0.2-0.9) 10/31/22 06:51 Eos # (Auto) 0.4 10^3/uL (0.0-0.8) 10/31/22 06:51 Baso # (Auto) 0.0 10^3/uL (0.0-0.1) 10/31/22 06:51 Nucleated RBC % (auto) 0 % 10/31/22 06:51 Nucleated RBCs # 0.0 /100WBC 10/31/22 06:51 Sodium 142 mmol/L (136-145) 10/31/22 06:51 Potassium 3.9 mmol/L (3.5-5.1) 10/31/22 06:51 Chloride 111 mmol/L (98-107) H 10/31/22 06:51 Carbon Dioxide 25 mmol/L (22-29) 10/31/22 06:51 Anion Gap 9.9 (5-19) 10/31/22 06:51 BUN 9 mg/dL (8-23) 10/31/22 06:51 Creatinine 0.9 mg/dL (0.7-1.2) 10/31/22 06:51 GFR Calculation 84.2 mL/min (90-130) L 10/31/22 06:51 Glucose 88 mg/dL (65-115) 10/31/22 06:51 Calculated Osmolality 292 mOsm/kg (285-295) 10/31/22 06:51 Lactic Acid 1.4 mmol/L (0.5-2.2) 10/30/22 01:25 Calcium 8.7 mg/dL (8.5-10.5) 10/31/22 06:51 Total Bilirubin 0.7 mg/dL (0.15-1.2) 10/30/22 01:25 AST 25 U/L (0-40) 10/30/22 01:25 ALT 17 U/L (0-41) 10/30/22 01:25 Alkaline Phosphatase 89 U/L (40-130) 10/30/22 01:25 Total Protein 7.7 g/dL (6.6-8.7) 10/30/22 01:25 Albumin 4.0 g/dL (3.5-5.2) 10/30/22 01:25 Globulin 3.7 g/dL (1.3-4.6) 10/30/22 01:25 TSH 4.16 uIU/mL (0.27-4.20) 10/30/22 01:25 Urine Color Yellow (Yellow) 10/30/22 01:36 Urine Appearance Clear (CLEAR) 10/30/22 01:36 Urine pH 6 (5-7) 10/30/22 01:36 Ur Specific [place] 1.010 (1.005-1.030) 10/30/22 01:36 Urine Protein Neg (Negative) 10/30/22 01:36 Urine Glucose (UA) Norm (Normal) 10/30/22 01:36 Urine Ketones 1+ (Negative) H 10/30/22 01:36 Urine Blood Neg (Negative) 10/30/22 01:36 Urine Nitrate Negative (Negative) 10/30/22 01:36 Urine Bilirubin Neg (Negative) 10/30/22 01:36 Urine Urobilinogen Neg mg/dL (Negative) 10/30/22 01:36 Ur Leukocyte Esterase Negative (Negative) 10/30/22 01:36 [place] 1.4 mmol/L (0.6-1.2) H 10/30/22 01:25 Vitals Last Vital Signs Temp 98.4 F 10/31/22 11:06 Pulse 66 10/31/22 11:06 Resp 17 10/31/22 11:06 BP 115/68 10/31/22 11:06 Pulse Ox 98 10/31/22 11:06 O2 Del Method Room Air 10/31/22 03:48 Discharge Plan Discharge Patient Disposition: Xfer Other Condition: Stable Prescriptions: New cefdinir 300 mg capsule 300 mg PO BID 7 Days Qty: 14 0RF azithromycin 250 mg tablet 250 mg PO DAILY 4 Days Qty: 4 0RF Rx Instructions: start on day 2 of therapy Continued polyethylene glycol 3350 [Miralax] 17 gram/dose powder 8.5 g feeding tube DAILY@12 Rx Instructions: 1/2 CAP FULL DAILY (8.6) gabapentin 400 mg capsule 400 mg feeding tube TID@08,12,20 methenamine hippurate 1 gram tablet 1 gm feeding tube BID@08,20 simvastatin 20 mg tablet 20 mg feeding tube BEDTIME@20 sennosides-docusate sodium [Senna Plus] 8.6-50 mg tablet 2 tab-cap PO BID@08,20 Rx Instructions: Feeding tube acetaminophen 325 mg Tablet 325 mg feeding tube Q4H PRN (Reason: Pain) loperamide 2 mg Capsule See Rx Instructions .ROUTE .COMPLEX Rx Instructions: 4 mg via feeding tube with each loose stool as needed magnesium citrate Solution See Rx Instructions .ROUTE .COMPLEX Rx Instructions: Drink 150ml, repeat once in 6 hours if needed if no BM in 72 hours. Ensure Plus 0.05-1.5 gram-kcal/mL liquid See Rx Instructions .ROUTE .COMPLEX Qty: 5688 2RF Rx Instructions: 1 can QID at 0800, 1200, 1600, 2000 followed by 200ml water flush. metoprolol tartrate 25 mg Tablet 25 mg feeding tube BID@08,20 white petrolatum [Petroleum Jelly] Gel 1 applic TOPICAL DAILY@08 Rx Instructions: Apply to feet and heels daily for dry skin tamsulosin 0.4 mg Capsule 0.8 mg PO BEDTIME@20 Rx Instructions: Feeding tube mupirocin 2 % Ointment 1 applic TOPICAL BID PRN (Reason: Wound care) Rx Instructions: Apply to chin on open wounds sertraline 100 mg tablet 200 mg feeding tube DAILY@08 hydroxyzine HCl 50 mg tablet 50 mg feeding tube TID@08,12,20 quetiapine [Seroquel] 100 mg tablet 100 mg feeding tube BID@08,20 lithium carbonate 300 mg tablet 300 mg feeding tube BID@08,20 olanzapine 20 mg tablet 20 mg feeding tube BID@08,20 levothyroxine 175 mcg Tablet 175 mcg feeding tube DAILY@0730 Vitamin C 500 mg Tablet 1,000 mg feeding tube BID@08,20 Vitamin D3 125 mcg (5,000 unit) Tablet 5,000 unit feeding tube DAILY@08 Discharge Orders: Discharge Order (Routine); Ordered 10/31/22 Ordered By: Kemar Eckert Referrals: Eliane Bruce PA [Primary Care Provider] - 4-7 days Discharge Diet: Resume prior tube feeds Discharge Activity: Resume usual activity and Increase activity as tolerated Patient Instructions: Opioid Safety Activity Restrictions/Additional Instructions: 1. Take medications as prescribed. 2. Resume previous tube feeding regimen. 3. Follow up with PCP. Discharge Attestations Time Spent in Discharge Care*: greater than 30 min Status at Discharge: Cognitive status at discharge: severely impaired cognition , Behavioral status at discharge: cooperative , Quality Metrics Clinical Quality Measures [ No reported AMI, CVA or VTE this stay] Coding Level of Care Code Acute Code for Chg Fwd Diagnoses Pneumonia J18.9 Weakness R53.1 Laceration of head S01.91XA [place] use Z79.899 Mild intellectual disabilities F70 Other schizophrenia F20.89 Chronic pulmonary aspiration T17.908A Feeding difficulties R63.3 Hypotension I95.9
[2022-10-31 17:59] VITALS: BP 115/68; PULSE 66; RESP 17; TEMP 36.9; O2SAT 98
== END 2022-10-31 15:50 | disposition home or self-care (01) | DRG 194 ==
LOC: ER 03:41 → MEDSURG 03:49
PROVIDERS: Admitting Provider Internal Medicine; Emergency Provider Emergency Medicine; PCP Physician Assistant; Visit Provider Internal Medicine
DX: J18.9 Pneumonia, unspecified organism (principal); F20.89 Other schizophrenia; F70 Mild intellectual disabilities; F41.9 Anxiety disorder, unspecified; F32.A Depression, unspecified; I95.9 Hypotension, unspecified; S01.01XA Laceration without foreign body of scalp, initial encounter; W18.30XA Fall on same level, unspecified, initial encounter; Z87.440 Personal history of urinary (tract) infections; E78.5 Hyperlipidemia, unspecified; I10 Essential (primary) hypertension; E03.9 Hypothyroidism, unspecified; Z93.1 Gastrostomy status
CPT/HCPCS: 36415; 70450; 70486; 71045; 72125; 80048; 80053; 80178; 81003; 83605; 84443; 85025; 87040; 96365; 96367; 96372; 99285; J0456; J0696; J1650; J7030; J7050